=== PATIENT | male | born 1945 | race Caucasian/White ===

== ENCOUNTER 2022-09-25 15:46 | Emergency (ER) | payer MEDICARE, MEDICAID, SELFPAY ==
[2022-09-25 15:47] VITALS: BP 165/76; PULSE 87; RESP 18; TEMP 36.7; O2SAT 92; BMI 32.8
--- NOTE | 2022-09-25 17:32 | EDS_ITS ---
HPI History of Present Illness Chief Complaint: Complaint Informant: other Narrative Narrative: Patient here with long-term staff members. History of deaf and being mute. Information from staff member. Sent in here from PCP blood work 3 days ago and urine test 2 days ago. States culture returned strep. Reported worsening kidney issues. Patient had blood work urine test due to changes in behavior. He is back at the long-term over the past few months. From paperwork history of hypertension, hyperlipidemia, deaf and mute, paroxysmal A-fib back in 1992. They reported me that their doctor told them the blood work results should be in the medical system for evaluation. Patient was not complaining of any urinary symptoms has been no vomiting or diarrhea. Reported that he was to come here for IV antibiotics. PFSH PFSH Home Medications cefuroxime axetil 500 mg tablet 500 mg PO BID #14 tabs 09/25/22 [Rx Last Taken Unknown] Allergy/AdvReac Type Severity Reaction Status Date / Time No Known Allergies Allergy Verified 09/25/22 15:52 Social History Smoking Status: Unknown if ever smoked ROS ROS ED Review of Systems ROS Unobtainable: due to mental condition EXAM Physical Exam Const Vital Signs: 09/25/22 15:47 09/25/22 18:17 09/25/22 20:08 Temperature 98.0 F Temperature Source Temporal Pulse Rate 87 Respiratory Rate 18 Blood Pressure 165/76 H Blood Pressure Mean 105 Pulse Ox 92 98 99 Oxygen Delivery Method Room Air Room Air Room Air 09/25/22 20:27 Temperature Temperature Source Pulse Rate 74 Respiratory Rate 14 Blood Pressure 114/85 H Blood Pressure Mean Pulse Ox 99 Oxygen Delivery Method Positive well nourished and well developed Constitutional Narrative: Sitting up in bed nontoxic moving all extremities General Appearance ED: well developed and NAD HEENT Reports moist mucous membranes normocephalic and atraumatic Eyes PERRL, EOMs intact bilaterally and conjunctivae normal General Eye ED: Yes normal appearance of both eyes Neck no lymphadenopathy and supple General: Negative for tenderness Chest Wall Chest: Negative for tenderness Resp normal respiratory effort and normal air movement Effort and Inspection: symmetric chest movement; Negative for respiratory distress Cardio regular rate, regular rhythm and no murmurs Peripheral Pulses: pulses 2+ throughout GI normal to inspection, nondistended, normoactive bowel sounds and non-tender GI Narrative: Negative Szymanski's McBurney's 10. Palpation: Negative for guarding or rebound tenderness present Back/Spine no CVA tenderness and no thoracic nor lumbar tenderness Extremity normal to inspection General Extremety ED: Negative for edema or tenderness General Extremity: Negative for edema Neuro Sensorium / Orientation: awake Skin no rashes or lesions noted and no wounds MDM MDM MDM Narrative Medical decision making narrative: Interventions / MDM: Differential diagnosis: UTI, kidney injury Diagnosis considered but do not suspect: Kidney stones, pyelonephritis however no discomfort, nontoxic My EKG interpretation: N/A Imaging independently reviewed and interpreted by myself: N/A External documents reviewed: Clinisync evaluation notes urine culture Streptococcus anginosus with no success to be testing done on report. Creatinine was 1.44 there is no old other labs in the system for comparison. Test considered but not ordered:N/A ED course: Patient nontoxic. Reported positive urine culture from 2 days ago. I did recheck labs White count 10.8 creatinine 1.46. Urine did note signs of infection culture. Obtaining records noted it was strep anginosus with no sensitivities that were performed. He is given fluids, discussed no order labs for comparison for his previous creatinine. He is covered Rocephin IV. Clinically stable for discharge home. Discussed with staff members. They like prescription sent to pharmacy here to milk pickup driver tomorrow. Cefuroxime was sent to the pharmacy twice a day for 7 days. They will follow-up with PCP recheck kidney numbers. Return precaution discussed. All questions were answered. Re-evaluation: stable Disposition discussed with patient/family/significant other: Staff members Case discussed with consulting clinician: N/A Lab Data Attestation: I reviewed the patient's lab results. Labs: Laboratory Results - last 24 hr 09/25/22 09/25/22 09/25/22 18:14 18:14 18:14 WBC Cancelled 10.8 Corrected WBC Cancelled RBC Cancelled 4.47 L Hgb Cancelled 13.6 Hct Cancelled 39.9 L MCV Cancelled 89.3 MCH Cancelled 30.4 MCHC Cancelled 34.1 RDW Std Deviation Cancelled 41.0 RDW Coeff of Leydi Cancelled 12.4 Plt Count Cancelled 226 MPV Cancelled 11.2 Immature Gran % (Auto) Cancelled 0.300 Neut % (Auto) Cancelled 74.2 H Lymph % (Auto) Cancelled 12.4 L [place] % (Auto) Cancelled 12.1 H Eos % (Auto) Cancelled 0.7 Baso % (Auto) Cancelled 0.3 Absolute Neuts (auto) Cancelled 8.0 H Absolute Lymphs (auto) Cancelled 1.34 Total Counted Cancelled Neutrophils % (Manual) Cancelled Band Neutrophils % Cancelled Lymphocytes % (Manual) Cancelled Monocytes % (Manual) Cancelled Eosinophils % (Manual) Cancelled Basophils % (Manual) Cancelled Metamyelocytes % Cancelled Myelocytes % Cancelled Promyelocytes % Cancelled Blast Cells % Cancelled Plasma Cell % (Manual) Cancelled Other Cells % Cancelled Nucleated RBC % Cancelled 0 Nucleated RBCs/100 WBC Cancelled Differential Comment Cancelled Diff Path Review Cancelled Hypersegmented Neuts Cancelled Atypical Lymphocytes Cancelled Reactive Lymphocytes Cancelled Smudge Cells Cancelled Toxic Granulation Cancelled Toxic Vacuolation Cancelled Dohle Bodies Cancelled Kwame Rods Cancelled Platelet Estimate Cancelled Plt Morphology Comment Cancelled RBC Morphology Cancelled Polychromasia Cancelled Hypochromasia Cancelled Poikilocytosis Cancelled Basophilic Stippling Cancelled Anisocytosis Cancelled Microcytosis Cancelled Macrocytosis Cancelled Spherocytes Cancelled Sickle Cells Cancelled Target Cells Cancelled Tear Drop Cells Cancelled Ovalocytes Cancelled Stomatocytes Cancelled [place] Bodies Cancelled Capri Cells Cancelled Bite Cells Cancelled Crenated Cell Cancelled Acanthocytes (Spur) Cancelled Rouleaux Cancelled Schistocytes Cancelled Sodium 134 L Potassium 4.3 Chloride 100 Carbon Dioxide 24.0 Anion Gap 10 BUN 38 H Creatinine 1.46 H Estim Creat Clear Calc 34.10 Est GFR (MDRD) Af Amer 60 Est GFR (MDRD) Non-Af 50 L BUN/Creatinine Ratio 26.0 H Glucose 177 H Calcium 9.7 Urine Color Urine Clarity Urine pH Ur Specific [place] Urine Protein Urine Glucose (UA) Urine Ketones Urine Occult Blood Urine Nitrite Urine Bilirubin Urine Urobilinogen Ur Leukocyte Esterase Urine RBC Urine WBC Ur Squamous Epith Cells Urine Bacteria Urine Mucus 09/25/22 18:14 WBC Corrected WBC RBC Hgb Hct MCV MCH MCHC RDW Std Deviation RDW Coeff of Leydi Plt Count MPV Immature Gran % (Auto) Neut % (Auto) Lymph % (Auto) [place] % (Auto) Eos % (Auto) Baso % (Auto) Absolute Neuts (auto) Absolute Lymphs (auto) Total Counted Neutrophils % (Manual) Band Neutrophils % Lymphocytes % (Manual) Monocytes % (Manual) Eosinophils % (Manual) Basophils % (Manual) Metamyelocytes % Myelocytes % Promyelocytes % Blast Cells % Plasma Cell % (Manual) Other Cells % Nucleated RBC % Nucleated RBCs/100 WBC Differential Comment Diff Path Review Hypersegmented Neuts Atypical Lymphocytes Reactive Lymphocytes Smudge Cells Toxic Granulation Toxic Vacuolation Dohle Bodies Kwame Rods Platelet Estimate Plt Morphology Comment RBC Morphology Polychromasia Hypochromasia Poikilocytosis Basophilic Stippling Anisocytosis Microcytosis Macrocytosis Spherocytes Sickle Cells Target Cells Tear Drop Cells Ovalocytes Stomatocytes [place] Bodies Capri Cells Bite Cells Crenated Cell Acanthocytes (Spur) Rouleaux Schistocytes Sodium Potassium Chloride Carbon Dioxide Anion Gap BUN Creatinine Estim Creat Clear Calc Est GFR (MDRD) Af Amer Est GFR (MDRD) Non-Af BUN/Creatinine Ratio Glucose Calcium Urine Color Yellow Urine Clarity Sl. Cloudy Urine pH 6.0 Ur Specific [place] 1.015 Urine Protein 15 H Urine Glucose (UA) Normal Urine Ketones Negative Urine Occult Blood Negative Urine Nitrite Negative Urine Bilirubin Negative Urine Urobilinogen Normal Ur Leukocyte Esterase 100 H Urine RBC 0 SEEN Urine WBC 5-10 SEEN Ur Squamous Epith Cells 0-5 SEEN Urine Bacteria 3+ Urine Mucus 0 SEEN Discharge Plan Triage Chief Complaint: Complaint ED Provider: Ezekiel Mehta Dx/Rx/DC Orders Clinical Impression: Acute UTI, Acute renal insufficiency Instructions: Urinary Tract Infections in Men, ED Renal Insufficiency Prescriptions: New cefuroxime axetil 500 mg tablet 500 mg PO BID Qty: 14 0RF Primary Care Provider: Brit Renee Referrals: Brit Renee MD [Primary Care Provider] - 3-5 Days Activity Restrictions/Additional Instructions: Creatinine 1.46 on recheck stable from your outpatient lab. Urine with infection status post Rocephin IV. Take antibiotic as prescribed. Continue oral fluids at home. Recheck labs by your doctor. Return if any worsening symptoms. Pharmacy is open from 9 AM to 2 PM tomorrow through [facility] to milk pickup driver. Disposition Disposition: Home, Self Care Discharge Date/Time: 09/25/22 20:27
[2022-09-25 18:17] VITALS: O2SAT 98
[2022-09-25] MEDS: 0.9% Normal Saline 1,000 ML 250 ML IV (18:21)
[2022-09-25 18:26] LABS: Mucous, Urine 0 SEEN /hpf (<or=2+); Red Blood Cells-Urine 0 SEEN /hpf (0-5)
[2022-09-25 18:31] LABS: Color, Urine Yellow (Yellow); Glucose, Dipstick Normal (Normal); Ketone-Dipstick Negative (Negative); Leukocyte Esterase-Dipstick 100 /ul (Negative); Nitrite-Dipstick Negative (Negative); Occult Blood-Urine Negative /ul (Negative); Protein-Dipstick 15 mg/dl (Negative); Specific Gravity, Urine 1.015 (1.002-1.030); Urine Bilirubin Dipstick Negative (Negative); Urine Clarity Sl. Cloudy (Clear); Urine Urobilinogen Normal (Normal)
[2022-09-25 18:36] LABS: Absolute Lymphocyte Count 1.34 X10^3/uL (0.83-4.51); Basophil# 0.03 X10^3/uL; Basophil% 0.3 % (0-1); Eosinophil# 0.08 X10^3/uL; Eosinophils% 0.7 % (0-5); Hematocrit 39.9 % (40-54); Hemoglobin 13.6 g/dL (13.0-16.5); Lymphocyte # 1.34 X10^3/ul (0.83-4.51); Lymphocyte % 12.4 % (19-41); Mean Corp Hgb Conc 34.1 g/dL (32-36); Mean Corpuscular Hgb 30.4 pg (27.0-32.0); Mean Corpuscular Volume 89.3 fL (80-94); Mean Platelet Vol. 11.2 fl (6.2-12.0); Monocyte# 1.31 X10^3/uL; Monocyte% 12.1 % (0-10); NRBC Flagged by Analyzer 0 % (0-5); Neutrophil # 8.04 X10^3/uL (2.7-7.7); Neutrophil % 74.2 % (47-70); Platelet Count 226 K/mm3 (150-450); RBC Distribution Width CV 12.4 % (11.6-14.6); Red Blood Count 4.47 M/mm3 (4.6-6.2); White Blood Count 10.8 K/mm3 (4.4-11.0)
[2022-09-25 18:38] LABS: Bacteria 3+ /hpf (None Seen); Squamous Epithelial Cells - UA 0-5 SEEN /hpf (0-5); White Blood Cells 5-10 SEEN /hpf (0-5)
[2022-09-25 19:00] LABS: Anion Gap 10 (5-15); BUN 38 mg/dL (7-18); Calcium,Total 9.7 mg/dL (8.5-10.1); Chloride 100 mmol/L (98-107); Creatinine, Serum 1.46 mg/dL (0.70-1.30); EST Glomerular Filtration Rate 50 mL/min (>60); Est Glom Filt Rate - Afr Amer 60 mL/min (>60); Glucose 177 mg/dL (74-106); Potassium 4.3 mmol/L (3.5-5.1); Sodium Level 134 mmol/L (136-145)
[2022-09-25] MEDS: Ceftriaxone 1 GM/50 ML BAG IV (19:25)
[2022-09-25 20:08] VITALS: O2SAT 99
[2022-09-25 20:27] VITALS: BP 114/85; PULSE 74; RESP 14; O2SAT 99
== END 2022-09-25 20:27 | disposition home or self-care (01) ==
PROVIDERS: Emergency Provider Emergency Medicine; PCP Internal Medicine; Visit Provider Emergency Medicine
DX: N39.0 Urinary tract infection, site not specified (principal); N28.9 Disorder of kidney and ureter, unspecified
CPT/HCPCS: 80048; 81001; 85025; 87086; 87088; 96365; 96366; 99284; J7030; A4216

== ENCOUNTER 2022-10-06 15:48 | Emergency (ER) | payer MEDICARE, MEDICAID, SELFPAY ==
[2022-10-06 15:49] VITALS: BP 158/85; PULSE 102; RESP 18; TEMP 36.6; O2SAT 93; BMI 28.7
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
== END 2022-10-06 17:10 | disposition home or self-care (01) ==
PROVIDERS: Emergency Provider Emergency Medicine; PCP Internal Medicine; Visit Provider Emergency Medicine
DX: F91.9 Conduct disorder, unspecified (principal); I10 Essential (primary) hypertension; E78.00 Pure hypercholesterolemia, unspecified; R41.89 Other symptoms and signs involving cognitive functions and awareness; H91.3 Deaf nonspeaking, not elsewhere classified; Z79.899 Other long term (current) drug therapy
CPT/HCPCS: 99282

== ENCOUNTER 2023-05-06 20:08 | Inpatient (IN) | payer MEDICARE, MEDICAID, SELFPAY ==
[2023-05-06] VITALS (13 sets, daily range): BP systolic 80–104; BP diastolic 53–68; PULSE 99–140; RESP 14–23; TEMP 36.3–36.6; O2SAT 90–98; BMI 27.1
--- NOTE | 2023-05-06 20:37 | EDS_ITS ---
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 His caregiver is unsure if he has had a fever at home because she was at work all day. Recently treated for UTI with Macrobid. 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 PFSH PFS Medical History (Updated 05/06/23 @ 21:06 by Madeleine Rodriguez) UTI (urinary tract infection) Home Medications amlodipine 10 mg tablet 10 mg PO DAILY 10/06/22 [History Last Taken Unknown] atorvastatin 20 mg tablet 20 mg PO DAILY 10/06/22 [History Last Taken Unknown] hydrochlorothiazide 12.5 mg capsule 12.5 mg PO DAILY 10/06/22 [History Last Taken Unknown] lisinopril 20 mg tablet 20 mg PO BID 10/06/22 [History Last Taken Unknown] atenolol 25 mg tablet 25 mg PO Q24H 05/06/23 [History Last Taken Unknown] cholecalciferol (vitamin D3) 50 mcg (2,000 unit) capsule (Vitamin D3) 2,000 unit PO DAILY 05/06/23 [History Last Taken Unknown] Allergy/AdvReac Type Severity Reaction Status Date / Time No Known Allergies Allergy Verified 05/06/23 20:26 Social History housing: other details: retirement Smoking Status: Unknown if ever smoked ROS ROS ED Review of Systems ROS Unobtainable: due to mental condition and due to mental status Gastrointestinal Gastrointestinal: Reports nausea and vomiting EXAM Physical Exam Const Vital Signs: 05/06/23 20:09 05/06/23 20:13 05/06/23 20:27 Temperature 97.9 F Temperature Source Temporal Pulse Rate 128 H Respiratory Rate 17 Blood Pressure 104/66 92/53 L Blood Pressure Mean 78 66 Pulse Ox 98 93 Oxygen Delivery Method Room Air Nasal Cannula Oxygen Flow Rate (L/min) 2 05/06/23 20:15 05/06/23 21:00 05/06/23 20:30 Temperature 97.9 F 97.8 F 97.9 F Temperature Source Temporal Temporal Temporal Pulse Rate 124 H 127 H 140 H Respiratory Rate 16 14 16 Blood Pressure 92/53 L 87/68 L 86/60 L Blood Pressure Mean 66 74 68 Pulse Ox 92 92 92 Oxygen Delivery Method Nasal Cannula Nasal Cannula Nasal Cannula Oxygen Flow Rate (L/min) 2 2 2 05/06/23 21:51 05/06/23 21:04 05/06/23 22:01 Temperature 97.8 F Temperature Source Temporal Pulse Rate 115 H 124 H 126 H Respiratory Rate 23 H 18 18 Blood Pressure 86/54 L 87/66 L Blood Pressure Mean 64 73 Pulse Ox 91 90 94 Oxygen Delivery Method Nasal Cannula Nasal Cannula Oxygen Flow Rate (L/min) 2 2 05/06/23 21:15 05/06/23 21:30 05/06/23 21:45 Temperature Temperature Source Pulse Rate 112 H 121 H 114 H Respiratory Rate 18 14 18 Blood Pressure 82/67 L 80/56 L 84/58 L Blood Pressure Mean 72 64 66 Pulse Ox 94 90 98 Oxygen Delivery Method Nasal Cannula Nasal Cannula Nasal Cannula Oxygen Flow Rate (L/min) 2 2 2 05/06/23 23:00 05/06/23 23:00 05/07/23 00:00 Temperature 97.4 F L 97.5 F L Temperature Source Temporal Temporal Pulse Rate 99 99 100 Respiratory Rate 14 14 17 Blood Pressure 90/58 L 90/58 L 90/56 L Blood Pressure Mean 68 68 67 Pulse Ox 94 94 90 Oxygen Delivery Method Nasal Cannula Nasal Cannula Nasal Cannula Oxygen Flow Rate (L/min) 2 2 2 05/07/23 00:50 05/07/23 00:52 Temperature 98.7 F 98.7 F Temperature Source Temporal Temporal Pulse Rate 93 92 Respiratory Rate 18 18 Blood Pressure 81/45 L 81/45 L Blood Pressure Mean 57 57 Pulse Ox 93 93 Oxygen Delivery Method Nasal Cannula Nasal Cannula Oxygen Flow Rate (L/min) 2 2 Positive well nourished HEENT Reports TM's clear and moist mucous membranes normocephalic Tympanic Membrane ED: Yes TM's clear Eyes PERRL and EOMs intact bilaterally Resp normal respiratory effort and clear to auscultation bilaterally Cardio regular rhythm Rate: tachycardic Neuro CN's II-XII intact bilaterally and moves all extremities Sensorium / Orientation: alert Motor Exam: general weakness Psych Psych Narrative: At baseline Skin no wounds MDM MDM MDM Narrative Medical decision making narrative: Patient presenting with nausea, vomiting, diarrhea which is occurred most of the day. Patient's caregiver currently with him was not with him today. She is unsure if he had a fever. She is unsure if he had his blood pressure medicines today. He is on amlodipine 10 mg p.o. daily, hydrochlorothiazide 12.5 mg p.o. daily, lisinopril 20 mg p.o. daily. Patient given 2 L of normal saline and 4 mg Zofran. He states this has no to abdominal exam and is not apparently tender. Sepsis work-up was obtained due to patient being tachycardic and slightly hypotensive at 92/53. Lungs clear to auscultation. Patient afebrile. Patient 98% on room air. Given patient's recent UTI differential includes UTI, pyelonephritis, pneumonia, COVID, influenza, dehydration, electrolyte normalities, anemia, A-fib. EKG will be obtained to assess heart rhythm. CBC shows leukocytosis of 19.9. Hemoglobin stable at 11.6. Platelets 430. PT/INR within normal limits. Lactic acid returned at 6.2. Chest x-ray my interpretation shows left lower lobe pneumonia. Patient slightly hypoxic requiring O2. Given this started on Rocephin and azithromycin. He was given 30 cc/kg of normal saline. Urinalysis was negative for infection. EKG on my interpretation flutter with variable AV block at 132 bpm. No reported history of this patient anticoagulated. Patient initially medicated with Zofran and started to have emesis again so he is given additional IV fluids as well as Phenergan and this seemed to control it. His blood pressures were anywhere from the 60s systolic to 100 systolic and have gone up and down periodically. The patient is alert however he cannot communicate. He does motion that he wants to go home. I spoke with his nurse aide who knows none of his medical history and does not know his CODE STATUS. Since the patient is a poor informant with a high leukocytosis I did CT the abdomen pelvis as well as the chest to make sure there was not something acutely abnormal and it does show that there is a chronic outlet obstruction with a distended bladder and hydroureteronephrosis. Caldwell catheter was placed and the patient emptied about 1500 cc out of his bladder. Discussed with Sumit Ruiz who is the court-appointed automatic dry starch operator for the patient and in charge of his care. She states that he did not have a very good life and recommended keeping him comfortable but no aggressive measures such as intubation, CPR, central lines. She was okay with IV fluids and antibiotics. Appropriate paperwork is filled out for DNR. Patient discussed with hospitalist for admission. Impression: 1. Left lower lobe pneumonia 2. Septic shock 3. Hypotension 4. Urinary outlet obstruction 5. Acute kidney injury 6. Nausea/vomiting Lab Data Attestation: I reviewed the patient's lab results. Labs: Laboratory Results - last 24 hr 05/06/23 05/06/23 20:50 21:00 WBC 19.9 H RBC 4.08 L Hgb 11.6 L Hct 36.5 L MCV 89.5 MCH 28.4 MCHC 31.8 L RDW Std Deviation 43.1 RDW Coeff of Ledy[place] 13.2 Plt Count 430 MPV 11.7 Immature Gran % (Auto) 0.600 Neut % (Auto) 81.8 H Lymph % (Auto) 8.1 L Webb % (Auto) 9.3 Eos % (Auto) 0.1 Baso % (Auto) 0.1 Absolute Neuts (auto) 16.3 H Absolute Lymphs (auto) 1.62 Nucleated RBC % 0 Differential Comment SEE COMMENT Diff Path Review May foll Platelet Estimate SLT INC RBC Morphology N CHROM Anisocytosis RARE Macrocytosis RARE PT 16.3 H INR 1.3 APTT 28.5 Sodium 137 Potassium 4.1 Chloride 101 Carbon Dioxide 21.0 Anion Gap 15 BUN 64 H Creatinine 3.92 H Estim Creat Clear Calc 15.03 Est GFR (MDRD) Af Amer 19 L Est GFR (MDRD) Non-Af 16 L BUN/Creatinine Ratio 16.3 Glucose 283 H Lactic Acid 6.2 H* Calcium 9.8 Total Bilirubin 0.70 AST 6 L ALT 16 Alkaline Phosphatase 99 Troponin I High Sens 7 Total Protein 8.7 H Albumin 3.9 Globulin 4.8 H Albumin/Globulin Ratio 0.8 L Urine Color Yellow Urine Clarity Sl. Cloudy Urine pH 8.0 Ur Specific [place] 1.010 Urine Protein 100 H Urine Glucose (UA) Normal Urine Ketones Negative Urine Occult Blood 50 H Urine Nitrite Negative Urine Bilirubin Negative Urine Urobilinogen Normal Ur Leukocyte Esterase 500 H Urine RBC 10-25 SEEN Urine WBC 0 SEEN Ur Squamous Epith Cells 0 SEEN Triple Phos Crystals 2+ Urine Bacteria 1+ Urine Mucus 0 SEEN Radiography Diagnostic Testing: Clinical Impression(s) from Imaging Studies Chest X-Ray 05/06/23 20:40 IMPRESSION: Findings which may be consistent with viral pneumonia most pronounced in the left lower lobe. Clinical correlation recommended. Electronically Signed: Daniel Mera MD at 21:07 EDT , Chest/Abdomen/Pelvis CT 05/06/23 21:46 IMPRESSION: Diffuse nonspecific bilateral perihilar interstitial thickening more pronounced in the lower lobes and ASHD.. Mild subsegmental atelectasis in association with elevated right hemidiaphragm Mild bilateral renal pelvocaliectasis and hydroureter association with markedly distended bladder and mild enlargement of prostate possibly due to chronic outlet obstruction.. Cannot definitively exclude possibility of bladder mass. Clinical correlation is recommended Electronically Signed: Daniel Mera MD at 23:03 EDT , Critical Care Time Critical Care Time: Yes Critical care time (excluding procedures): 30-74 minutes (35), Discussing w/Patient &/or Family/Diver'S Tender, Discussing w/Consultants, Arranging Admission or Transfer and Performing Direct Patient Care at Bedside Discharge Plan Triage Chief Complaint: Nausea/Vomiting/Diarrhea ED Provider: William Mcelroy Dx/Rx/DC Orders Prescriptions: No Action atorvastatin 20 mg tablet 20 mg PO DAILY lisinopril 20 mg tablet 20 mg PO BID amlodipine 10 mg tablet 10 mg PO DAILY hydrochlorothiazide 12.5 mg capsule 12.5 mg PO DAILY atenolol 25 mg tablet 25 mg PO Q24H cholecalciferol (vitamin D3) [Vitamin D3] 50 mcg (2,000 unit) capsule 2,000 unit PO DAILY Primary Care Provider: Brit Renee Referrals: Brit Renee MD [Primary Care Provider] -
--- NOTE | 2023-05-06 20:40 | RAD_ITS ---
STUDY: X-RAY CHEST REASON FOR EXAM: Male, 77 years old. weakness TECHNIQUE: AP portable COMPARISON: None. FINDINGS: Bilateral perihilar reticulonodular interstitial infiltration more severe in the lower lobes worse on the left. There is no demonstrated pleural abnormality. Normal size heart. Normal mediastinum and marcela. Normal visualized pulmonary arteries. Mildly calcified aortic arch and descending thoracic aorta. Normal visualized thoracic spine. Normal visualized ribs, clavicles, and shoulders. There is no demonstrated abnormality of the visualized soft tissue structures of the upper abdomen. RAD/Chest 1 View (Portable) IMPRESSION: Findings which may be consistent with viral pneumonia most pronounced in the left lower lobe. Clinical correlation recommended. Electronically Signed: Daniel Mera MD at 21:07 EDT ,
[2023-05-06] MEDS: Ondansetron 4 MG/2 ML Vial IV (21:05)
[2023-05-06] MEDS: 0.9% Normal Saline (1000mL) 1,000 ML 999 ML IV ×4 (21:05→23:31)
[2023-05-06 21:10] LABS: Mucous, Urine 0 SEEN /hpf (<or=2+); Squamous Epithelial Cells - UA 0 SEEN /hpf (0-5)
[2023-05-06 21:13] LABS: Absolute Lymphocyte Count 1.62 X10^3/uL (0.83-4.51); Absolute Neutrophil Count 16.3 X10^3/uL (2.0-7.7); Basophil# 0.02 X10^3/uL; Basophil% 0.1 % (0-1); Eosinophil# 0.01 X10^3/uL; Eosinophils% 0.1 % (0-5); Hematocrit 36.5 % (40-54); Hemoglobin 11.6 g/dL (13.0-16.5); Lymphocyte # 1.62 X10^3/ul (0.83-4.51); Lymphocyte % 8.1 % (19-41); Mean Corp Hgb Conc 31.8 g/dL (32-36); Mean Corpuscular Hgb 28.4 pg (27.0-32.0); Mean Corpuscular Volume 89.5 fL (80-94); Mean Platelet Vol. 11.7 fl (6.2-12.0); Monocyte# 1.85 X10^3/uL; Monocyte% 9.3 % (0-10); NRBC Flagged by Analyzer 0 % (0-5); Neutrophil # 16.32 X10^3/uL (2.7-7.7); Neutrophil % 81.8 % (47-70); POSITIVE DIFFERENTIAL YES; Platelet Count 430 K/mm3 (150-450); RBC Distribution Width CV 13.2 % (11.6-14.6); RBC Distribution Width SD 43.1 fl (35.1-43.9); Red Blood Count 4.08 M/mm3 (4.6-6.2); White Blood Count 19.9 K/mm3 (4.4-11.0)
[2023-05-06 21:33] LABS: ALB/GLOB Ratio 0.8 RATIO (0.9-2.4); AST(SGOT) 6 U/L (15-37); Alanine Aminotransfer ALT/SGPT 16 U/L (16-61); Albumin, Serum 3.9 g/dL (3.2-5.0); Alkaline Phosphatase 99 U/L (45-117); Anion Gap 15 (5-15); BUN 64 mg/dL (7-18); BUN/Creat Ratio 16.3 RATIO (10-20); Calcium,Total 9.8 mg/dL (8.5-10.1); Chloride 101 mmol/L (98-107); Creatinine, Serum 3.92 mg/dL (0.70-1.30); Differential Indicated SCAN CRITERIA MET; EST Glomerular Filtration Rate 16 mL/min (>60); Est Glom Filt Rate - Afr Amer 19 mL/min (>60); Estimated Creatinine Clearance 15.03 ml/min; Globulin 4.8 g/dL (2.2-4.2); Glucose 283 mg/dL (74-106); Potassium 4.1 mmol/L (3.5-5.1); Protein, Total 8.7 g/dL (6.4-8.2); Sodium Level 137 mmol/L (136-145); Troponin-I HS 7 pg/mL (3.0-78.0)
[2023-05-06 21:37] LABS: International Normalized Ratio 1.3; Partial Thromboplast Time 28.5 Seconds (24.1-36.2); Prothrombin Time (Protime)PT. 16.3 SECONDS (11.7-14.9)
[2023-05-06 21:40] LABS: Color, Urine Yellow (Yellow); Glucose, Dipstick Normal (Normal); Ketone-Dipstick Negative (Negative); Leukocyte Esterase-Dipstick 500 /ul (Negative); Nitrite-Dipstick Negative (Negative); Occult Blood-Urine 50 /ul (Negative); Protein-Dipstick 100 mg/dl (Negative); Urine Bilirubin Dipstick Negative (Negative); Urine Clarity Sl. Cloudy (Clear); Urine Urobilinogen Normal (Normal)
[2023-05-06 21:46] LABS: Lactic Acid 6.2 mmol/L (0.4-1.9); Platelet Estimate SLT INC (ADEQ); Red Cell Morphology N CHROM NORMAL (NORM C&C)
--- NOTE | 2023-05-06 21:46 | CT_ITS ---
STUDY: CT CHEST, ABDOMEN T PELVIS WITHOUT CONTRAST REASON FOR EXAM: Male, 77 years old. pain RADIATION DOSAGE (If Supplied By Facility): CTDIvol = ( 19.83 ) mGy, DLP = ( 1892.97 ) mGycm TECHNIQUE: Transaxial imaging was performed without the administration of intravenous contrast material. Individualized dose optimization techniques were used for this CT. COMPARISON: No relevant priors. FINDINGS: CHEST Nonspecific diffuse interstitial thickening more pronounced in the lower lobes.. Mild subsegmental atelectasis in the right lower lobe in association with elevated right hemidiaphragm There is no demonstrated pleural abnormality. Heart is enlarged and there is multivessel coronary artery calcification. There is a small pericardial cyst in the right cardiophrenic angle Normal mediastinum. Normal hilar regions. Normal unenhanced pulmonary arteries. Atherosclerotic changes of the aorta without evidence for aneurysm Dorsal spine demonstrates degenerative changes ABDOMEN Normal liver. Normal gallbladder and extrahepatic biliary system. Normal spleen. Normal pancreas. Normal bilateral adrenal glands. Mild bilateral renal pelvocaliectasis and hydroureter and diffusely distended bladder in association with mild enlargement of prostate possibly due to chronic outlet obstruction Normal visualized stomach. Normal small intestine. Normal colon. No evidence for acute appendicitis Atherosclerotic changes of aorta without evidence for aneurysm. Normal inferior vena cava. Tiny subcentimeter retroperitoneal nodes likely benign. Normal abdominal wall. Normal osseous structures. PELVIS Nonspecific diffuse bladder distention Normal visualized small intestine. Normal visualized colon. There is no pelvic fluid. There is no pelvic lymphadenopathy or mass lesion. Normal visualized pelvic arteries. Normal abdominal wall. Lumbar spine demonstrates mild spondylosis. CT/CT Chest, Abd, Pelvis WO Cont IMPRESSION: Diffuse nonspecific bilateral perihilar interstitial thickening more pronounced in the lower lobes and ASHD.. Mild subsegmental atelectasis in association with elevated right hemidiaphragm Mild bilateral renal pelvocaliectasis and hydroureter association with markedly distended bladder and mild enlargement of prostate possibly due to chronic outlet obstruction.. Cannot definitively exclude possibility of bladder mass. Clinical correlation is recommended Electronically Signed: Daniel Mera MD at 23:03 EDT ,
[2023-05-06 21:53] LABS: Bacteria 1+ /hpf (None Seen); Red Blood Cells-Urine 10-25 SEEN /hpf (0-5); Triple Phosphate Crystals Ur 2+ /hpf (<or=1+); White Blood Cells 0 SEEN /hpf (0-5)
[2023-05-06 21:53] LABS: Anisocytosis RARE
[2023-05-06 21:54] LABS: Macrocytosis RARE
[2023-05-06] MEDS: Azithromycin 500 MG in Dextrose 5%-Water (250mL Bag) 250 ML 250 MG IV (22:37)
[2023-05-06] MEDS: Ceftriaxone 1 GM/50 ML BAG IV (22:38)
[2023-05-06] MEDS: proMETHazine 25 MG/ML Syringe 12.5 MG IM (23:31)
[2023-05-07] VITALS (19 sets, daily range): BP systolic 77–104; BP diastolic 45–67; PULSE 92–124; RESP 14–19; TEMP 36.2–37.2; O2SAT 90–97; BMI 26.9
--- NOTE | 2023-05-07 00:22 | ED.RN ---
THIS NURSE SPOKE TO JOHANA RAMIREZ, LEGAL POA. SHE STATES ED IS TO BE A DNRCC WITH NO AGGRESSIVE TREATMENT.
--- NOTE | 2023-05-07 00:53 | PCM.HP.STD ---
HPI - General General Date of Service: 05/07/23 Chief Complaint: nausea, vomiting and diarrhea HPI Narrative ED VAQZUEZ, is a 77 M with a significant history of deaf and dumb; and cognitive defect will lives at a Longterm who was brought to the emergency department with nausea, vomiting and diarrhea. His symptoms started the same day of presentation. Per snf aide was at bedside patient went to the bathroom and stated for about 1 hour. When staff went to the bathroom, patient had stools on the toilet and he was covered with vomitus. History was obtained from emergency department doctor and snf age as patient's is nonverbal and deaf. At the emergency department patient was found to have severely low blood pressure. He received normal saline bolus per sepsis protocol. ED physician discussed case with patient's POA who recommended against aggressive treatment but reported patient be made comfortable. ED doctor reported that CT scan showed bladder left obstruction and a Caldwell catheter placed was productive 1500 mL of urine and for which the Caldwell catheter was clamped. [facility] Medical History (Updated 05/07/23 @ 01:[address] Carlton Pelayo MD) UTI (urinary tract infection) Home Medications amlodipine 10 mg tablet 10 mg PO DAILY 10/06/22 [History Last Taken Unknown] atorvastatin 20 mg tablet 20 mg PO DAILY 10/06/22 [History Last Taken Unknown] hydrochlorothiazide 12.5 mg capsule 12.5 mg PO DAILY 10/06/22 [History Last Taken Unknown] lisinopril 20 mg tablet 20 mg PO BID 10/06/22 [History Last Taken Unknown] atenolol 25 mg tablet 25 mg PO Q24H 05/06/23 [History Last Taken Unknown] cholecalciferol (vitamin D3) 50 mcg (2,000 unit) capsule (Vitamin D3) 2,000 unit PO DAILY 05/06/23 [History Last Taken Unknown] Allergy/AdvReac Type Severity Reaction Status Date / Time No Known Allergies Allergy Verified 05/06/23 20:26 Family History unable to obtain unable to obtain Surgical History unable to obtain unable to obtain Social History housing: other details: longterm Smoking Status: Unknown if ever smoked Vital Signs Vital Signs Vital Signs: 05/06/23 20:09 05/06/23 20:13 05/06/23 20:27 Temperature 97.9 F Temperature Source Temporal Pulse Rate 128 H Respiratory Rate 17 Blood Pressure 104/66 92/53 L Blood Pressure Mean 78 66 Pulse Ox 98 93 Oxygen Delivery Method Room Air Nasal Cannula Oxygen Flow Rate (L/min) 2 05/06/23 20:15 05/06/23 21:00 05/06/23 20:30 Temperature 97.9 F 97.8 F 97.9 F Temperature Source Temporal Temporal Temporal Pulse Rate 124 H 127 H 140 H Respiratory Rate 16 14 16 Blood Pressure 92/53 L 87/68 L 86/60 L Blood Pressure Mean 66 74 68 Pulse Ox 92 92 92 Oxygen Delivery Method Nasal Cannula Nasal Cannula Nasal Cannula Oxygen Flow Rate (L/min) 2 2 2 05/06/23 21:51 05/06/23 21:04 05/06/23 22:01 Temperature 97.8 F Temperature Source Temporal Pulse Rate 115 H 124 H 126 H Respiratory Rate 23 H 18 18 Blood Pressure 86/54 L 87/66 L Blood Pressure Mean 64 73 Pulse Ox 91 90 94 Oxygen Delivery Method Nasal Cannula Nasal Cannula Oxygen Flow Rate (L/min) 2 2 05/06/23 21:15 05/06/23 21:30 05/06/23 21:45 Temperature Temperature Source Pulse Rate 112 H 121 H 114 H Respiratory Rate 18 14 18 Blood Pressure 82/67 L 80/56 L 84/58 L Blood Pressure Mean 72 64 66 Pulse Ox 94 90 98 Oxygen Delivery Method Nasal Cannula Nasal Cannula Nasal Cannula Oxygen Flow Rate (L/min) 2 2 2 05/06/23 23:00 05/06/23 23:00 05/07/23 00:00 Temperature 97.4 F L 97.5 F L Temperature Source Temporal Temporal Pulse Rate 99 99 100 Respiratory Rate 14 14 17 Blood Pressure 90/58 L 90/58 L 90/56 L Blood Pressure Mean 68 68 67 Pulse Ox 94 94 90 Oxygen Delivery Method Nasal Cannula Nasal Cannula Nasal Cannula Oxygen Flow Rate (L/min) 2 2 2 05/07/23 00:50 05/07/23 00:52 Temperature 98.7 F 98.7 F Temperature Source Temporal Temporal Pulse Rate 93 92 Respiratory Rate 18 18 Blood Pressure 81/45 L 81/45 L Blood Pressure Mean 57 57 Pulse Ox 93 93 Oxygen Delivery Method Nasal Cannula Nasal Cannula Oxygen Flow Rate (L/min) 2 2 Weight Weight: 81.1 kg Body Mass Index (BMI) 27.1 Physical Exam Narrative Physical exam: General: Well-nourished, well-developed. Head: Normocephalic, atraumatic, no tenderness Eyes: Vision is grossly intact. ENT, no trauma, moist mucous membranes, no rhinorrhea Neck: Nontender, No thyromegaly. CVS: Regular rate and rhythm. S1-S2 present. No murmur, gallop or rub. Respiratory : Rales, chest wall nontender Abdomen: Soft, nontender, nondistended, normal bowel sounds, no masses : Deferred Back: Nontender, no CVA tenderness, Extremities: Nontender full range of motion, no trauma Skin: Normal color, no trauma, abrasions Neuro: Alert,Deaf Psychiatry: Normal mood. Normal affect. Not depressed. Not anxious. Results Lab / Micro Data 05/06/23 20:50 05/06/23 20:50 Labs: Laboratory Results - last 24 hr 05/06/23 20:50: WBC 19.9 H, RBC 4.08 L, Hgb 11.6 L, Hct 36.5 L, MCV 89.5, MCH 28.4, MCHC 31.8 L, RDW Std Deviation 43.1, RDW Coeff of [place] 13.2, Plt Count 430, MPV 11.7, Immature Gran % (Auto) 0.600, Neut % (Auto) 81.8 H, Lymph % (Auto) 8.1 L, [place] % (Auto) 9.3, Eos % (Auto) 0.1, Baso % (Auto) 0.1, Absolute Neuts (auto) 16.3 H, Absolute Lymphs (auto) 1.62, Nucleated RBC % 0, Differential Comment SEE COMMENT, Diff Path Review Nirali carl, Platelet Estimate T INC, RBC Morphology N CHROM, Anisocytosis RARE, Macrocytosis RARE, PT 16.3 H, INR 1.3, APTT 28.5, Sodium 137, Potassium 4.1, Chloride 101, Carbon Dioxide 21.0, Anion Gap 15, BUN 64 H, Creatinine 3.92 H, Estim Creat Clear Calc 15.03, Est GFR (MDRD) Af Amer 19 L, Est GFR (MDRD) Non-Af 16 L, BUN/Creatinine Ratio 16.3, Glucose 283 H, Lactic Acid 6.2 H*, Calcium 9.8, Total Bilirubin 0.70, AST 6 L, ALT 16, Alkaline Phosphatase 99, Troponin I High Sens 7, Total Protein 8.7 H, Albumin 3.9, Globulin 4.8 H, Albumin/Globulin Ratio 0.8 L 05/06/23 21:00: Urine Color Yellow, Urine Clarity Sl. Cloudy, Urine pH 8.0, Ur Specific [place] 1.010, Urine Protein 100 H, Urine Glucose (UA) Normal, Urine Ketones Negative, Urine Occult Blood 50 H, Urine Nitrite Negative, Urine Bilirubin Negative, Urine Urobilinogen Normal, Ur Leukocyte Esterase 500 H, Urine RBC 10-25 SEEN, Urine WBC 0 SEEN, Ur Squamous Epith Cells 0 SEEN, Triple Phos Crystals 2+, Urine Bacteria 1+, Urine Mucus 0 SEEN Micro: Microbiology 05/06/23 20:55 Nasal Secretion SARS-CoV-2 & FLU Antigen (Rapid) - Final Radiology Impression Chest X-Ray 05/06/23 20:40 IMPRESSION: Findings which may be consistent with viral pneumonia most pronounced in the left lower lobe. Clinical correlation recommended. Electronically Signed: Daniel Mera MD at 21:07 EDT Reading Location ID and State: [facility] in [place] / [place] Tel [phone], Service support , Chest/Abdomen/Pelvis CT 05/06/23 21:46 IMPRESSION: Diffuse nonspecific bilateral perihilar interstitial thickening more pronounced in the lower lobes and ASHD.. Mild subsegmental atelectasis in association with elevated right hemidiaphragm Mild bilateral renal pelvocaliectasis and hydroureter association with markedly distended bladder and mild enlargement of prostate possibly due to chronic outlet obstruction.. Cannot definitively exclude possibility of bladder mass. Clinical correlation is recommended Electronically Signed: Daniel Mera MD at 23:03 EDT , Assessment & Plan Assessment/Plan (1) Pneumonia: QUALIFIERS: Pneumonia type: due to unspecified organism Laterality: bilateral Lung location: unspecified part of lung Qualified Code(s): J18.9 - Pneumonia, unspecified organism (2) Gastroenteritis: (3) Septic shock: PLAN: Plan Sepsis secondary to pneumonia/ gastroenteritis The patient presented with sepsis due to (pneumonia and possible gastroenteritis; with acute sepsis related organ dysfunction as evidenced by (lactic acidosis and hypotension ). SIRS criteria: Heart rate more than 90 WBC more than 12,000 or less than 4000 or more than 10% bands (in patient case White count of 19,900 with bandemia of 16,300) organ dysfunction: SBP less than 90 or MAP less than 65 Creatinine more than 2 or urine output less than 0.5 mL/kg/h for 2 hours /Abdomen/pelvis CT with diffuse nonspecific bilateral perihilar interstitial lung disease. Lactic acid of 6.2 on presentation Blood culture X2 ordered at the emergency department, follow. Urine culture ordered AT THE emergency department, follow. SARS-CoV-2 and flu antigen negative. Will check respiratory pathogen panel. Antibiotics: Started on azithromycin and ceftriaxone at the emergency department. Cefepime and azithromycin ordered for inpatient. Linezolid ordered. IV hydration: Received normal saline bolus per septic protocol. Was started on gentle IV hydration. Legionella antigen screen and Strep antigen ordered. Hold home antihypertensive regimen. Acute gastroenteritis Stool leukocyte ordered. Enteric pathogen panel and Giardia stool EIA ordered. Hydration as above. As needed antiemetics in place. Emergency department doctor discussed case with Gerard Ruiz (power of nurse practitioner physicians assistant) on [phone]. Per discussion between ED physician and power of nurse practitioner physicians assistant no heroic measures was recommended. Central line was not recommended. Patient is a DNR CC and will be admitted to progressive care unit on telemetry. History of hypertension Hold home blood pressure medications secondary to hypotension and RAGHAV. Monitor RAGHAV His creatinine on presentation was 3.92. Review of records show that his creatinine (was 09/25/2022 ) was 1.46. Gentle IV hydration as above. Trend BMP. Atrial fibrillation with RVR EKG per my independent interpretation showed A-fib with RVR. Likely secondary to sepsis. Treatment as above. Admit to progressive care unit on telemetry. DVT Prophylaxis: Subcutaneous heparin. Time spent in the patient's overall evaluation,decision-making process, review of diagnostic data, adjustment of management, discussion with other providers, nursing nursing and ancillary staff involved in patient's care documentation, 75 minutes Charges/Coding Visit Charges Inpatient E&M: 82340 Init Hosp L3
[2023-05-07 01:08] LABS: Reflex Lactate? Y
[2023-05-07 02:02] LABS: Lactic Acid 7.4 mmol/L (0.4-1.9)
--- NOTE | 2023-05-07 02:32 | SEPSISATNOTE ---
Sepsis Attestation Sepsis Alert: Yes Sepsis Attestation: Agree w/Sepsis Date exam was performed: 05/07/23 Time exam was performed: 00:53 Possible Source of Sepsis: Pulmonary Sepsis Organ Dysfunction Criteria Present: SBP < 90 mmHg or MAP < 65 mmHg
[2023-05-07] MEDS: 0.9% Normal Saline (1000mL) 1,000 ML 75 ML IV (03:22)
[2023-05-07] MEDS: Linezolid 600 MG 600 MG/300 ML BAG 200 MG IV ×3 (03:31→22:27)
--- NOTE | 2023-05-07 04:32 | NURSING ---
pt had a 16 beat run of vtach--dr ackerman notified via text
[2023-05-07] MEDS: Cefepime HCl 2 GM in 0.9% Normal Saline (100mL MB+) 100 ML IV (06:16)
[2023-05-07 06:25] LABS: Absolute Lymphocyte Count 1.05 X10^3/uL (0.83-4.51); Absolute Neutrophil Count 11.8 X10^3/uL (2.0-7.7); Basophil# 0.01 X10^3/uL; Basophil% 0.1 % (0-1); Hematocrit 32.1 % (40-54); Hemoglobin 10.4 g/dL (13.0-16.5); Lymphocyte # 1.05 X10^3/ul (0.83-4.51); Lymphocyte % 6.9 % (19-41); Mean Corp Hgb Conc 32.4 g/dL (32-36); Mean Corpuscular Hgb 28.9 pg (27.0-32.0); Mean Corpuscular Volume 89.2 fL (80-94); Monocyte# 2.31 X10^3/uL; Monocyte% 15.2 % (0-10); NRBC Flagged by Analyzer 0 % (0-5); Neutrophil # 11.77 X10^3/uL (2.7-7.7); Neutrophil % 77.4 % (47-70); POSITIVE DIFFERENTIAL YES; Platelet Count 258 K/mm3 (150-450); RBC Distribution Width CV 13.5 % (11.6-14.6); RBC Distribution Width SD 44.1 fl (35.1-43.9); White Blood Count 15.2 K/mm3 (4.4-11.0)
[2023-05-07 06:47] LABS: Differential Indicated SCAN CRITERIA MET
[2023-05-07 07:01] LABS: Anion Gap 7 (5-15); BUN 62 mg/dL (7-18); BUN/Creat Ratio 20.1 RATIO (10-20); Calcium,Total 7.9 mg/dL (8.5-10.1); Chloride 112 mmol/L (98-107); Creatinine, Serum 3.09 mg/dL (0.70-1.30); EST Glomerular Filtration Rate 21 mL/min (>60); Est Glom Filt Rate - Afr Amer 25 mL/min (>60); Estimated Creatinine Clearance 19.06 ml/min; Glucose 143 mg/dL (74-106); Potassium 3.8 mmol/L (3.5-5.1); Sodium Level 140 mmol/L (136-145)
[2023-05-07 07:03] LABS: Magnesium 1.9 mg/dL (1.6-2.6)
[2023-05-07 07:14] LABS: Differential Comment SCANNED
[2023-05-07] MEDS: Heparin Injection (Vial) 5,000 UNIT/ML VIAL 5000 UNIT SC ×2 (09:08→22:22)
[2023-05-07] MEDS: Cholecalciferol (VIT D3) 25 MCG TABLET (1,000 UNITS) 50 MCG PO (09:08)
[2023-05-07 12:19] LABS: Pathologist Review Reviewed
[2023-05-07 12:22] LABS: Pathologist Review Reviewed
--- NOTE | 2023-05-07 12:31 | CASEMGMT ---
SHARMILA called patient's caregiver at the correction, Alma. SHARMILA asked Alma if patient needs oxygen at discharge can he return to the correction. Alma said she does not know. Alma said she got a call from Alley Serrano, patient's SSA at [facility] and she said patient is not to return to the correction and needs a long-term setting. SHARMILA called [facility] and left a message for Alley requesting a return call. Bernarda MARCUS
--- NOTE | 2023-05-07 12:53 | CASEMGMT ---
SHARMILA received a return call from Alley Randolph at [facility]. Alley said patient cannot return to the [facility] as they are unable to meet patient's needs. The fdc is not safe for patient. Alley said they were just getting ready to work on finding an alternate placement for patient and he just got a guardian. There has been no discussion of which group home for patient. SHARMILA asked Alley if she could send SW the guardianship paperwork. Plan: Apparently patient is not safe to return to his fdc per Board of . Patient will need placement in a [facility] facility. SHARMILA will work with patient's guardian on placing patient. Bernarda MARCUS
--- NOTE | 2023-05-07 13:55 | CASEMGMT ---
SW placed a copy of patient's legal guardianship papers in patient's chart. Bernarda Camejo PLANT PHYSIOLOGY TEACHER ANGELINE
[2023-05-07] MEDS: Ondansetron 4 MG/2 ML Vial IV (18:45)
[2023-05-07] MEDS: 0.9% Normal Saline (1000mL) 1,000 ML 125 ML IV (18:46)
[2023-05-07] MEDS: Atorvastatin Calcium 20 MG Tablet PO (22:21)
[2023-05-07] MEDS: Azithromycin 500 MG in Dextrose 5%-Water (250mL Bag) 250 ML 250 MG IV (22:22)
[2023-05-08 02:00] VITALS: BP 98/74; PULSE 107; RESP 18; TEMP 36.6; O2SAT 93
[2023-05-08] MEDS: 0.9% Normal Saline (1000mL) 1,000 ML 125 ML IV ×3 (04:16→18:33)
[2023-05-08 06:00] VITALS: BP 92/63; PULSE 119; RESP 16; TEMP 36.7; O2SAT 96
[2023-05-08 06:15] LABS: Absolute Lymphocyte Count 1.39 X10^3/uL (0.83-4.51); Absolute Neutrophil Count 7.8 X10^3/uL (2.0-7.7); Basophil# 0.03 X10^3/uL; Basophil% 0.3 % (0-1); Eosinophil# 0.05 X10^3/uL; Eosinophils% 0.5 % (0-5); Lymphocyte # 1.39 X10^3/ul (0.83-4.51); Lymphocyte % 12.7 % (19-41); Mean Corp Hgb Conc 32.3 g/dL (32-36); Mean Corpuscular Hgb 29.2 pg (27.0-32.0); Mean Corpuscular Volume 90.6 fL (80-94); Mean Platelet Vol. 11.8 fl (6.2-12.0); Monocyte# 1.63 X10^3/uL; Monocyte% 14.9 % (0-10); NRBC Flagged by Analyzer 0 % (0-5); Neutrophil % 71.3 % (47-70); POSITIVE DIFFERENTIAL YES; Platelet Count 198 K/mm3 (150-450); RBC Distribution Width CV 13.7 % (11.6-14.6); RBC Distribution Width SD 45.6 fl (35.1-43.9); Red Blood Count 3.42 M/mm3 (4.6-6.2); White Blood Count 10.9 K/mm3 (4.4-11.0)
[2023-05-08 06:25] LABS: Differential Indicated SCAN CRITERIA MET
[2023-05-08 06:50] LABS: Differential Comment SCANNED
[2023-05-08 06:51] LABS: Anion Gap 4 (5-15); BUN 45 mg/dL (7-18); Calcium,Total 8.1 mg/dL (8.5-10.1); Chloride 113 mmol/L (98-107); EST Glomerular Filtration Rate 39 mL/min (>60); Est Glom Filt Rate - Afr Amer 47 mL/min (>60); Estimated Creatinine Clearance 32.72 ml/min; Glucose 87 mg/dL (74-106); Potassium 3.5 mmol/L (3.5-5.1); Sodium Level 140 mmol/L (136-145)
--- NOTE | 2023-05-08 09:05 | PN.HOSP_ITS ---
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 Objective Data Objective Data Vital Signs: Vital Signs Temp Pulse Resp BP Pulse Ox O2 Del Method O2 Flow Rate 98.1 F 119 H 16 92/63 96 Nasal Cannula 3 05/08/23 06:00 05/08/23 06:00 05/08/23 06:00 05/08/23 06:00 05/08/23 06:00 05/08/23 06:00 05/08/23 06:00 Oxygen Flow Rate (L/min) 3 Oxygen Delivery Method Nasal Cannula Weight: 177 lb 7.554 oz Body Mass Index (BMI) 26.9 Intake & Output: Intake and Output for Last 24 Hours 05/07/23 05/08/23 05/09/23 03:59 03:59 03:59 Intake Total 4305 / 4305 2715.42 / 2715.42 539.58 / 539.58 Output Total 1974 / 1974 400 / 400 Balance 4305 / 4305 740.42 / 740.42 139.58 / 139.58 Lab / Micro Data 05/08/23 05:48 05/08/23 05:48 Labs: Laboratory Results - last 24 hr 05/06/23 20:50: Diff Path Review Reviewed 05/07/23 06:10: Diff Path Review Reviewed 05/08/23 05:48: WBC 10.9, RBC 3.42 L, Hgb 10.0 L, Hct 31.0 L, MCV 90.6, MCH 29.2, MCHC 32.3, RDW Std Deviation 45.6 H, RDW Coeff of Leydi 13.7, Plt Count 198, MPV 11.8, Immature Gran % (Auto) 0.300, Neut % (Auto) 71.3 H, Lymph % (Auto) 12.7 L, [place] % (Auto) 14.9 H, Eos % (Auto) 0.5, Baso % (Auto) 0.3, Absolute Neuts (auto) 7.8 H, Absolute Lymphs (auto) 1.39, Nucleated RBC % 0, Differential Comment SCANNED, Sodium 140, Potassium 3.5, Chloride 113 H, Carbon Dioxide 23.0, Anion Gap 4 L, BUN 45 H, Creatinine 1.80 H, Estim Creat Clear Calc 32.72, Est GFR (MDRD) Af Amer 47 L, Est GFR (MDRD) Non-Af 39 L, BUN/Creatinine Ratio 25.0 H , Glucose 87, Calcium 8.1 L Micro: Microbiology 05/06/23 21:00 Urine, Catheterized Urine Culture - Preliminary GPC Poss Enterococcus sp 05/07/23 08:00 Mucosa - Nasopharyngeal Respiratory Panel (PCR) - Final 05/07/23 00:55 Urine Catheter - Catheter Legionella Antigen - Final 05/07/23 00:55 Urine Catheter - Catheter Streptococcus pneumoniae Antigen (M - Final 05/06/23 20:55 Nasal Secretion SARS-CoV-2 & FLU Antigen (Rapid) - Final Physical Exam Narrative General: Alert, cannot determine orientation, Cooperative, No apparent distress HEENT: Atraumatic, PERRLA, EOMI, Normocephalic Oral: Moist Mucosa Neck: Supple, No JVD Lungs: Diminished, Normal air movement, No rhonchi, No wheeze, No rales Cardiovascular: Tach: Tach, Regular Rhythm, Normal S1, Normal S2, No murmurs Abdomen: Soft, Non Tender, Non-Distended, No Hepato-splenomegaly Extremities: No edema, Capillary Refill Less than 3 Seconds Skin: No rashes, No breakdown Musculoskeletal: No Tenderness to Palpation of Joints or Extremities Neurological: Moves all extremities, Sensory exam intact to light touch and pain Psych/Mental Status: Normal Affect, Appropriate Assessment & Plan Assessment/Plan (1) UTI (urinary tract infection): (2) Severe sepsis: PLAN: Plan 1. Severe sepsis secondary to UTI/RAGHAV ? Urine cultures so far with Enterococcus continue with antibiotics ? CT of the chest abdomen and pelvis is unremarkable for any signs of colitis or consolidation in the lungs ? His mean arterial pressures have been above 65 but his pressures systolic are still low however he has not required any pressor support though he does have some endorgan dysfunction with an RAGHAV ? COVID and flu antigens are negative respiratory pathogen panel is also negati ve ? Has not had a bowel movement yet so likely not a gastroenteritis or colitis ? We will continue with cefepime azithromycin and linezolid until we have culture data and then will narrow 2. HTN/HLD ? We will hold blood pressure medication secondary to his lower pressures ? Continue with Lipitor ? We will hold his hydrochlorothiazide and lisinopril secondary to his renal failure and low blood pressures ? He did have a transient A-fib with RVR secondary to sepsis response does not appear to be in A-fib any longer DVT: Heparin Emergency department doctor discussed case with Ms.Brodie Ruiz (power of graphic design manager) on [phone]. Per discussion between ED physician and power of graphic design manager no heroic measures was recommended. Central line was not recommended. Patient is a DNR CC and will be admitted to progressive care unit on telemetry. Charges/Coding Visit Charges Inpatient E&M: 96382 Subs Hosp L2
[2023-05-08 10:00] VITALS: BP 90/67; PULSE 134; RESP 16; TEMP 36.7; O2SAT 93
[2023-05-08] MEDS: Ondansetron 4 MG/2 ML Vial IV (10:02)
[2023-05-08] MEDS: Heparin Injection (Vial) 5,000 UNIT/ML VIAL 5000 UNIT SC ×2 (10:02→20:58)
[2023-05-08] MEDS: Cholecalciferol (VIT D3) 25 MCG TABLET (1,000 UNITS) 50 MCG PO (10:03)
[2023-05-08] MEDS: Cefepime HCl 2 GM in 0.9% Normal Saline (100mL MB+) 100 ML IV (10:10)
[2023-05-08] MEDS: Linezolid 600 MG 600 MG/300 ML BAG 200 MG IV ×2 (10:11→22:01)
[2023-05-08 14:02] VITALS: BP 88/66; PULSE 119; RESP 16; TEMP 36.4; O2SAT 94
--- NOTE | 2023-05-08 14:19 | CASEMGMT ---
Social Work SW spoke w/pt's guardian, Sundayemelina Ruiz, in regard to pt. She states she has been speaking w/Alley w/DD, and is aware and in agreement that pt needs SNF placement. She has been deferring to Alley as far as which facility, and Alley was to be looking into where had beds. SHARMILA explained to Mary we can help w/that. SHARMILA explained to Mary has list of SNF in network w/pt's insurance, in this geographic area with quality and resource use data via [employer] if they would need it. Mary explains they have spoken about [facility], [facility] and [facility]. SHARMILA explained can get the referral process going for these facilities, and SW can follow up w/her on Wednesday. Mary states understanding. SHARMILA sent referrals via [employer] to [facility], [facility] and [facility]. SW to follow up on Wednesday. DEBORA Varela
[2023-05-08 17:19] VITALS: BP 94/62; PULSE 124; RESP 16; TEMP 36.8; O2SAT 98
[2023-05-08] MEDS: Atorvastatin Calcium 20 MG Tablet PO (20:58)
[2023-05-08] MEDS: Azithromycin 500 MG in Dextrose 5%-Water (250mL Bag) 250 ML 250 MG IV (20:58)
[2023-05-08 21:14] VITALS: BP 104/71; PULSE 121; RESP 18; TEMP 36.7; O2SAT 93
[2023-05-09] VITALS (37 sets, daily range): BP systolic 82–110; BP diastolic 57–78; PULSE 93–142; RESP 12–22; TEMP 36.3–37.2; O2SAT 88–97
[2023-05-09] MEDS: 0.9% Normal Saline (1000mL) 1,000 ML 125 ML IV (03:07)
[2023-05-09 06:07] LABS: Absolute Lymphocyte Count 0.96 X10^3/uL (0.83-4.51); Absolute Neutrophil Count 6.1 X10^3/uL (2.0-7.7); Basophil# 0.02 X10^3/uL; Basophil% 0.2 % (0-1); Eosinophils% 1.2 % (0-5); Hematocrit 30.8 % (40-54); Hemoglobin 9.7 g/dL (13.0-16.5); Lymphocyte # 0.96 X10^3/ul (0.83-4.51); Lymphocyte % 11.3 % (19-41); Mean Corp Hgb Conc 31.5 g/dL (32-36); Mean Corpuscular Volume 91.9 fL (80-94); Mean Platelet Vol. 11.7 fl (6.2-12.0); Monocyte# 1.34 X10^3/uL; Monocyte% 15.7 % (0-10); NRBC Flagged by Analyzer 0 % (0-5); Neutrophil # 6.08 X10^3/uL (2.7-7.7); Neutrophil % 71.4 % (47-70); Platelet Count 171 K/mm3 (150-450); RBC Distribution Width CV 13.6 % (11.6-14.6); RBC Distribution Width SD 46.3 fl (35.1-43.9); Red Blood Count 3.35 M/mm3 (4.6-6.2); White Blood Count 8.5 K/mm3 (4.4-11.0)
[2023-05-09 07:02] LABS: Anion Gap 5 (5-15); BUN 26 mg/dL (7-18); BUN/Creat Ratio 21.3 RATIO (10-20); Calcium,Total 7.7 mg/dL (8.5-10.1); Chloride 111 mmol/L (98-107); Creatinine, Serum 1.22 mg/dL (0.70-1.30); EST Glomerular Filtration Rate 61 mL/min (>60); Est Glom Filt Rate - Afr Amer 74 mL/min (>60); Estimated Creatinine Clearance 48.28 ml/min; Glucose 86 mg/dL (74-106); Potassium 3.5 mmol/L (3.5-5.1); Sodium Level 140 mmol/L (136-145)
[2023-05-09] MEDS: Ampicillin/Sulbactam 3 GM in 0.9% Normal Saline (100mL MB+) 100 ML IV ×3 (08:07→20:04)
[2023-05-09] MEDS: Heparin Injection (Vial) 5,000 UNIT/ML VIAL 5000 UNIT SC ×2 (08:16→20:38)
[2023-05-09] MEDS: Cholecalciferol (VIT D3) 25 MCG TABLET (1,000 UNITS) 50 MCG PO (08:16)
[2023-05-09] MEDS: Metoprolol Tartrate 5 MG/5 ML Vial IV (08:41)
--- NOTE | 2023-05-09 09:17 | PCM.PN.HOSP ---
Subjective Subjective Has had increasing oxygen requirement secondary to the IV fluids for hypotension. He also went from what appears to be a sinus tach into an A-fib with RVR. EKG done straits lateral ST depressions Objective Data Objective Data Vital Signs: Vital Signs Temp Pulse Resp BP Pulse Ox O2 Del Method O2 Flow Rate 98 F 142 H 18 110/67 90 Nasal Cannula 10 05/09/23 08:02 05/09/23 08:41 05/09/23 08:02 05/09/23 08:41 05/09/23 08:49 05/09/23 08:49 05/09/23 08:49 Oxygen Flow Rate (L/min) 10 Oxygen Delivery Method Nasal Cannula Weight: 177 lb 7.554 oz Body Mass Index (BMI) 26.9 Intake & Output: Intake and Output for Last 24 Hours 05/08/23 05/09/23 05/10/23 03:59 03:59 03:59 Intake Total 2715.42 / 2715.42 4521.25 / 4521.25 753.67 / 753.67 Output Total 1974 / 1974 1550 / 1550 350 / 350 Balance 740.42 / 740.42 2971.25 / 2971.25 403.67 / 403.67 Lab / Micro Data 05/09/23 05:10 05/09/23 05:10 Labs: Laboratory Results - last 24 hr 05/09/23 05:10: WBC 8.5, RBC 3.35 L, Hgb 9.7 L, Hct 30.8 L, MCV 91.9, MCH 29.0, MCHC 31.5 L, RDW Std Deviation 46.3 H, RDW Coeff of Leydi 13.6, Plt Count 171, MPV 11.7, Immature Gran % (Auto) 0.200, Neut % (Auto) 71.4 H, Lymph % (Auto) 11.3 L, [place] % (Auto) 15.7 H, Eos % (Auto) 1.2, Baso % (Auto) 0.2, Absolute Neuts (auto) 6.1, Absolute Lymphs (auto) 0.96, Nucleated RBC % 0, Sodium 140, Potassium 3.5, Chloride 111 H, Carbon Dioxide 24.0, Anion Gap 5, BUN 26 H, Creatinine 1.22, Estim Creat Clear Calc 48.28, Est GFR (MDRD) Af Amer 74, Est GFR (MDRD) Non-Af 61, BUN/Creatinine Ratio 21.3 H, Glucose 86, Calcium 7.7 L Micro: Microbiology 05/06/23 21:00 Urine, Catheterized Urine Culture - Final Enterococcus faecalis 05/07/23 08:00 Mucosa - Nasopharyngeal Respiratory Panel (PCR) - Final 05/07/23 00:55 Urine Catheter - Catheter Legionella Antigen - Final 05/07/23 00:55 Urine Catheter - Catheter Streptococcus pneumoniae Antigen (M - Final 05/06/23 20:55 Nasal Secretion SARS-CoV-2 & FLU Antigen (Rapid) - Final Physical Exam Narrative General: Alert, cannot determine orientation, Cooperative, No apparent distress HEENT: Atraumatic, PERRLA, EOMI, Normocephalic Oral: Moist Mucosa Neck: Supple, No JVD Lungs: Diminished, Normal air movement, No rhonchi, No wheeze, No rales Cardiovascular: Irregular rate and irregular rhythm, Normal S1, Normal S2, No murmurs Abdomen: Soft, Non Tender, Non-Distended, No Hepato-splenomegaly Extremities: No edema, Capillary Refill Less than 3 Seconds Skin: No rashes, No breakdown Musculoskeletal: No Tenderness to Palpation of Joints or Extremities Neurological: Moves all extremities, Sensory exam intact to light touch and pain Psych/Mental Status: Normal Affect, Appropriate Assessment & Plan Assessment/Plan (1) UTI (urinary tract infection): (2) Severe sepsis: PLAN: Plan 1. Severe sepsis secondary to Enterococcus UTI/RAGHAV ? Urine cultures so far with Enterococcus continue with Unasyn and will discontinue cefepime and linezolid ? CT of the chest abdomen and pelvis is unremarkable for any signs of colitis or consolidation in the lungs ? His mean arterial pressures have been above 65 but his pressures systolic are still low however he has not required any pressor support though he does have some endorgan dysfunction with an RAGHAV ? COVID and flu antigens are negative respiratory pathogen panel is also negative ? Has not had a bowel movement yet so likely not a gastroenteritis or colitis ? We will continue with cefepime azithromycin and linezolid until we have culture data and then will narrow 2. HTN/HLD/A-fib with RVR ? We will hold blood pressure medication secondary to his lower pressures ? Continue with Lipitor ? Given his hypotension a lot of his blood pressure medications have been held and he was given IV fluids which has caused some increasing oxygen requirement ? He was transiently in A-fib earlier in his admission however now it appears that he has flipped into A-fib he did have an improvement in his rate control with IV Lopressor will check blood pressure and if he tolerated that then can transition to p.o. metoprolol to try to help control his heart rate hopefully without decreasing his blood pressure significantly ? We will obtain troponins and if there is no improvement in his heart rate or if he does become hypotensive will need to consult cardiology DVT: Heparin Emergency department doctor discussed case with Ms.Brodie Ruiz (power of criminal attorney) on [phone]. Per discussion between ED physician and power of criminal attorney no heroic measures was recommended. Central line was not recommended. Patient is a DNR CC and will be admitted to progressive care unit on telemetry. Charges/Coding Visit Charges Inpatient E&M: 80347 Subs Hosp L2
[2023-05-09 10:08] LABS: Troponin-I HS 305 pg/mL (3.0-78.0)
[2023-05-09] MEDS: Amiodarone 150 MG in Dextrose 5%-Water (100mL Bag) 100 ML 600 MG IV BOLUS (10:15)
[2023-05-09] MEDS: Amiodarone 360 MG in Dextrose 5% Viaflo Bag 192.8 ML 33.3 MG CONT INF (10:32)
[2023-05-09 13:03] LABS: Troponin-I HS 349 pg/mL (3.0-78.0)
[2023-05-09] MEDS: 0.9% Saline Lock 10 ML Syringe IV ×2 (13:05→20:41)
[2023-05-09] MEDS: 0.9% Normal Saline (1000mL) 1,000 ML 75 ML IV (13:06)
[2023-05-09] MEDS: Sodium Chloride 0.65% 1 SPRAY SPRAY.BTL 2 SPRAY NASAL (13:06)
[2023-05-09 15:52] LABS: Troponin-I HS 475 pg/mL (3.0-78.0)
[2023-05-09] MEDS: Amiodarone 360 MG in Dextrose 5% Viaflo Bag 192.8 ML 16.7 MG CONT INF (16:45)
[2023-05-09] MEDS: Ondansetron 4 MG/2 ML Vial IV (18:46)
[2023-05-10] VITALS (24 sets, daily range): BP systolic 93–124; BP diastolic 7–85; PULSE 93–143; RESP 12–60; TEMP 36.3–37.7; O2SAT 86–128
[2023-05-10] MEDS: 0.9% Normal Saline (1000mL) 1,000 ML 75 ML IV (03:22)
[2023-05-10] MEDS: Amiodarone 360 MG in Dextrose 5% Viaflo Bag 192.8 ML 16.7 MG CONT INF (04:55)
[2023-05-10] MEDS: Ampicillin/Sulbactam 3 GM in 0.9% Normal Saline (100mL MB+) 100 ML IV ×3 (04:55→20:05)
[2023-05-10 06:32] LABS: Absolute Lymphocyte Count 0.87 X10^3/uL (0.83-4.51); Absolute Neutrophil Count 8.1 X10^3/uL (2.0-7.7); Basophil# 0.02 X10^3/uL; Basophil% 0.2 % (0-1); Eosinophil# 0.02 X10^3/uL; Eosinophils% 0.2 % (0-5); Hematocrit 34.3 % (40-54); Hemoglobin 10.6 g/dL (13.0-16.5); Lymphocyte # 0.87 X10^3/ul (0.83-4.51); Lymphocyte % 8.4 % (19-41); Mean Corp Hgb Conc 30.9 g/dL (32-36); Mean Corpuscular Hgb 28.3 pg (27.0-32.0); Mean Corpuscular Volume 91.7 fL (80-94); Mean Platelet Vol. 11.9 fl (6.2-12.0); Monocyte# 1.34 X10^3/uL; Monocyte% 12.9 % (0-10); NRBC Flagged by Analyzer 0 % (0-5); Neutrophil # 8.09 X10^3/uL (2.7-7.7); Neutrophil % 77.8 % (47-70); Platelet Count 210 K/mm3 (150-450); RBC Distribution Width CV 13.5 % (11.6-14.6); RBC Distribution Width SD 45.8 fl (35.1-43.9); Red Blood Count 3.74 M/mm3 (4.6-6.2); White Blood Count 10.4 K/mm3 (4.4-11.0)
[2023-05-10 07:00] LABS: Anion Gap 6 (5-15); BUN 20 mg/dL (7-18); Chloride 112 mmol/L (98-107); Creatinine, Serum 1.11 mg/dL (0.70-1.30); EST Glomerular Filtration Rate 68 mL/min (>60); Est Glom Filt Rate - Afr Amer 82 mL/min (>60); Estimated Creatinine Clearance 53.06 ml/min; Glucose 85 mg/dL (74-106); Potassium 3.7 mmol/L (3.5-5.1); Sodium Level 142 mmol/L (136-145)
[2023-05-10] MEDS: Furosemide 20 MG/2 ML VIAL IV (08:14)
[2023-05-10] MEDS: 0.9% Saline Lock 10 ML Syringe IV (08:14)
--- NOTE | 2023-05-10 09:02 | PN.HOSP_ITS ---
Subjective Subjective Continued tachycardia, and increasing oxygen requirements Objective Data Objective Data Vital Signs: Vital Signs Temp Pulse Resp BP Pulse Ox O2 Del Method O2 Flow Rate 98.7 F 93 18 107/64 128 Airvo 60 05/10/23 07:53 05/10/23 08:47 05/10/23 08:47 05/10/23 08:00 05/10/23 08:47 05/10/23 08:00 05/10/23 08:00 FiO2 91 05/10/23 08:47 Oxygen Flow Rate (L/min) 60 Oxygen Delivery Method Airvo Weight: 177 lb 7.554 oz Body Mass Index (BMI) 26.9 Intake & Output: Intake and Output for Last 24 Hours 05/09/23 05/10/23 05/11/23 03:59 03:59 03:59 Intake Total 4521.25 / 4521.25 2811.89 / 2811.89 592.62 / 592.62 Output Total 1550 / 1550 900 / 900 400 / 400 Balance 2971.25 / 2971.25 1911.89 / 1911.89 192.62 / 192.62 Lab / Micro Data 05/10/23 05:52 05/10/23 05:52 Labs: Laboratory Results - last 24 hr 05/09/23 09:39: Troponin I High Sens 305 H* 05/09/23 11:28: Troponin I High Sens 349 H* 05/09/23 15:08: Troponin I High Sens 475 H* 05/10/23 05:52: WBC 10.4, RBC 3.74 L, Hgb 10.6 L, Hct 34.3 L, MCV 91.7, MCH 28.3, MCHC 30.9 L, RDW Std Deviation 45.8 H, RDW Coeff of Leydi 13.5, Plt Count 210, MPV 11.9, Immature Gran % (Auto) 0.500, Neut % (Auto) 77.8 H, Lymph % (Auto) 8.4 L, [place] % (Auto) 12.9 H, Eos % (Auto) 0.2, Baso % (Auto) 0.2, Absolute Neuts (auto) 8.1 H, Absolute Lymphs (auto) 0.87, Nucleated RBC % 0, Sodium 142, Potassium 3.7, Chloride 112 H, Carbon Dioxide 24.0, Anion Gap 6, BUN 20 H, Creatinine 1.11, Estim Creat Clear Calc 53.06, Est GFR (MDRD) Af Amer 82, Est GFR (MDRD) Non-Af 68, BUN/Creatinine Ratio 18.0, Glucose 85, Calcium 8.0 L Micro: Microbiology 05/06/23 20:50 Blood Culture (Wb) - Anticubital Right Blood Culture - Preliminary No growth in 48 hours. 05/06/23 20:50 Blood Culture (Wb) - Anticubital Left Blood Culture - Preliminary No growth in 48 hours. 05/06/23 21:00 Urine, Catheterized Urine Culture - Final Enterococcus faecalis 05/07/23 08:00 Mucosa - Nasopharyngeal Respiratory Panel (PCR) - Final 05/07/23 00:55 Urine Catheter - Catheter Legionella Antigen - Final 05/07/23 00:55 Urine Catheter - Catheter Streptococcus pneumoniae Antigen (M - Final 05/06/23 20:55 Nasal Secretion SARS-CoV-2 & FLU Antigen (Rapid) - Final Physical Exam Narrative General: Alert, cannot determine orientation, Cooperative, mild respiratory distress HEENT: Atraumatic, PERRLA, EOMI, Normocephalic Oral: Moist Mucosa Neck: Supple, No JVD Lungs: Diminished, Normal air movement, No rhonchi, No wheeze, scattered rales, tachypneic Cardiovascular: Irregular rate and irregular rhythm, Normal S1, Normal S2, No murmurs Abdomen: Soft, Non Tender, Non-Distended, No Hepato-splenomegaly Extremities: No edema, Capillary Refill Less than 3 Seconds Skin: No rashes, No breakdown Musculoskeletal: No Tenderness to Palpation of Joints or Extremities Neurological: Moves all extremities, Sensory exam intact to light touch and pain Psych/Mental Status: Normal Affect, Appropriate Assessment & Plan Assessment/Plan (1) UTI (urinary tract infection): (2) Severe sepsis: PLAN: Plan 1. Severe sepsis secondary to Enterococcus UTI/RAGHAV ? Urine cultures so far with Enterococcus continue with Unasyn and will discontinue cefepime and linezolid ? CT of the chest abdomen and pelvis is unremarkable for any signs of colitis or consolidation in the lungs ? His mean arterial pressures have been above 65 but his systolic pressures are still low however he has not required any pressor support though he does have some endorgan dysfunction with an RAGHAV ? COVID and flu antigens are negative respiratory pathogen panel is also negati ve 2. HTN/HLD/A-fib with RVR/acute hypoxic respiratory distress ? We will hold blood pressure medication secondary to his lower pressures ? Continue with Lipitor ? We will discontinue IV fluids and start him on a dose of IV Lasix given his respiratory distress likely from volume overload versus flash pulmonary edema between that and A-fib with RVR ? We will transition from IV amiodarone to p.o. amiodarone today ? He has had a climbing troponin which is likely demand ischemia related to his afib. Will consult cardiology DVT: Heparin Emergency department doctor discussed case with Ms.Brodie Ruiz (power of patent prosecution attorney) on [phone]. Per discussion between ED physician and power of att orney no heroic measures was recommended. Central line was not recommended. Patient is a DNR CC and will be admitted to progressive care unit on telemetry. Charges/Coding Visit Charges Inpatient E&M: 62139 Subs Hosp L2
[2023-05-10] MEDS: Amiodarone 200 MG Tablet PO ×2 (10:28→20:05)
[2023-05-10] MEDS: Heparin Injection (Vial) 5,000 UNIT/ML VIAL 5000 UNIT SC ×2 (11:22→20:07)
--- NOTE | 2023-05-10 12:48 | CASEMGMT ---
Social Work Patient identified that he has a living will and power of claim attorney in place, but has not brought documents to . Patient encouraged to do so. Power of claim attorney identified as patient's caregiver. Celine Richter, HANGER, CORN PRESS OPERATOR
--- NOTE | 2023-05-10 13:30 | CPS ---
Changed H2O bag on Airvo.
--- NOTE | 2023-05-10 13:31 | CASEMGMT ---
[facility] and [facility] both asked how staff communicates with patient and if patient has any behaviors. SHARMILA called [facility] and spoke with Alma. Alma said patient has motions that he uses to tell people what he wants. They eventually have learned what his different motions mean. As far as behaviors patient can get aggressive, and it is extremely important that the patient have his own bathroom. Patient does not like to share a bathroom as he will smear feces on the wall in the bathroom. SHARMILA called [facility] and told Jasmyne this information. SHARMILA passed along this information to [facility] as well. Bernarda Camejo CIRCLE EDGER ANGELINE
--- NOTE | 2023-05-10 17:47 | PCM.CONS.C ---
Assessment & Plan Assessment/Plan (1) Atrial fibrillation: PLAN: He is in atrial fibrillation with an uncontrolled ventricular response rate. At this time my recommendation will be to finish up the intravenous amiodarone and switch him to oral amiodarone 200 mg twice a day and add a beta-alba. I will also suggest he be anticoagulated with Eliquis 5 mg twice a day. An echocardiogram should be performed to assess his ventricular function. (2) Hypertension: PLAN: He does have a history of hypertension and his blood pressure does not appear to be a problem at this time. We will attempt to optimize his medical therapy. We will obtain echocardiogram to assess ventricular function. We will start metoprolol 25 mg twice a day starting later this evening. Thank you for allowing me to participate in the care of your patient. Please don't hesitate to call if any issues arise. HPI Consult Data Date of Consult: 05/10/23 HPI Narrative HPI Narrative: ED VAZQUEZ, is a 77 M who presents to the emergency room with shortness of breath and fatigue. He apparently has recently been treated for a urinary tract infection and in the emergency room was noted to be hypotensive and in atrial fibrillation with rapid ventricular response rate. He was started on intravenous amiodarone and now being transitioned to oral amiodarone. Cardiology was asked to evaluate him. He denies any chest pain or shortness of breath or paroxysmal nocturnal dyspnea as best as I can tell. As you know he does have hearing impairment and is a senior living resident. [facility] Home Medications amlodipine 10 mg tablet 10 mg PO DAILY 10/06/22 [History Last Taken Unknown] atorvastatin 20 mg tablet 20 mg PO DAILY 10/06/22 [History Last Taken Unknown] hydrochlorothiazide 12.5 mg capsule 12.5 mg PO DAILY 10/06/22 [History Last Taken Unknown] lisinopril 20 mg tablet 20 mg PO BID 10/06/22 [History Last Taken Unknown] atenolol 25 mg tablet 25 mg PO Q24H 05/06/23 [History Last Taken Unknown] cholecalciferol (vitamin D3) 50 mcg (2,000 unit) capsule (Vitamin D3) 2,000 unit PO DAILY 05/06/23 [History Last Taken Unknown] Allergy/AdvReac Type Severity Reaction Status Date / Time No Known Allergies Allergy Verified 05/06/23 20:26 Family History unable to obtain Surgical History unable to obtain Social History housing: other details: long term Smoking Status: Unknown if ever smoked ROS ROS Narrative Difficult to obtain but as best as 1 could obtain Review of Systems ROS Unobtainable: due to mental condition Constitutional Constitutional: Denies fever(s) or weight loss Eyes Eyes: Reports systems reviewed and no addt'l complaints, except as documented ENT HEENT: Reports systems reviewed and no addt'l complaints, except as documented Cardiovascular Cardiovascular: Denies chest pain at rest, chest pain with activity, dyspnea at rest, dyspnea on exertion, edema, palpitations or paroxysmal nocturnal dyspnea Respiratory/Chest Respiratory/Chest: Denies dyspnea on exertion, productive cough, shortness of breath at rest or shortness of breath with exertion Gastrointestinal Gastrointestinal: Denies change in bowel habits, nausea, vomiting or weight changes Genitourinary Genitourinary: Denies difficulty urinating Musculoskeletal Musculoskeletal: Denies joint stiffness or muscle weakness Integumentary Integumentary: Denies lesions Neurologic Neurologic: Denies dizziness or syncope Psychiatric Psychiatric: Denies anxiety Endocrine Endocrinology: Denies excessive sweating or fatigue Hematologic/Lymphatic Hematologic/Lymphatic: Denies anemia Allergic/Immunologic Allergic/Immunologic: Denies seasonal rhinorrhea Physical Exam Const alert, oriented x3 and no apparent distress General Appearance: cooperative HEENT hearing grossly normal bilaterally Head and Scalp: atraumatic Eyes EOMs intact bilaterally Neck General: normal visual inspection Chest inspection of chest normal and palpation of chest normal Resp normal respiratory effort Auscultation: clear to auscultation bilaterally Cardio S1 normal heart sound and S2 normal heart sound Jugular Venous Distention: JVD Rhythm: abnormal rhythm irregularly irregular GI normal to inspection, nondistended, normoactive bowel sounds Extremity normal capillary refill and no pedal edema Peripheral Pulses: Yes pulses 2+ throughout and femoral pulses present Skin no rashes or lesions noted Neuro oriented x3 and CN's II-XII intact bilaterally Psych Appearance: grossly normal and appropriate Risk Stratification Risk Stratification Applicable: No Objective Data Vital Signs: Vital Signs Temp Pulse Resp BP Pulse Ox O2 Del Method O2 Flow Rate 97.6 F L 125 H 18 111/72 96 Airvo 60 05/10/23 17:20 05/10/23 17:20 05/10/23 17:20 05/10/23 17:20 05/10/23 17:20 05/10/23 17:20 05/10/23 17:20 FiO2 83 05/10/23 17:20 Oxygen Flow Rate (L/min) 60 Oxygen Delivery Method Airvo Weight: 177 lb 7.554 oz Body Mass Index (BMI) 26.9 Intake & Output: Intake and Output for Last 24 Hours 05/08/23 05/09/23 05/10/23 23:59 23:59 23:59 Intake Total 4075.42 / 4075.42 2782.72 / 2782.72 1522.48 / 1522.48 Output Total 1550 / 1550 900 / 900 1650 / 1650 Balance 2525.42 / 2525.42 1882.72 / 1882.72 -127.52 / -127.52 Lab / Micro Data 05/10/23 05:52 05/10/23 05:52 Labs: Laboratory Results - last 24 hr 05/10/23 05:52: WBC 10.4, RBC 3.74 L, Hgb 10.6 L, Hct 34.3 L, MCV 91.7, MCH 28.3, MCHC 30.9 L, RDW Std Deviation 45.8 H, RDW Coeff of Leydi 13.5, Plt Count 210, MPV 11.9, Immature Gran % (Auto) 0.500, Neut % (Auto) 77.8 H, Lymph % (Auto) 8.4 L, [place] % (Auto) 12.9 H, Eos % (Auto) 0.2, Baso % (Auto) 0.2, Absolute Neuts (auto) 8.1 H, Absolute Lymphs (auto) 0.87, Nucleated RBC % 0, Sodium 142, Potassium 3.7, Chloride 112 H, Carbon Dioxide 24.0, Anion Gap 6, BUN 20 H, Creatinine 1.11, Estim Creat Clear Calc 53.06, Est GFR (MDRD) Af Amer 82, Est GFR (MDRD) Non-Af 68, BUN/Creatinine Ratio 18.0, Glucose 85, Calcium 8.0 L Cardiology Labs/Tests 05/10/23 05:52: WBC 10.4, RBC 3.74 L, Hgb 10.6 L, Hct 34.3 L, MCV 91.7, MCH 28.3, MCHC 30.9 L, Plt Count 210, MPV 11.9, Immature Gran % (Auto) 0.500, Neut % (Auto) 77.8 H, Lymph % (Auto) 8.4 L, [place] % (Auto) 12.9 H, Eos % (Auto) 0.2, Baso % (Auto) 0.2, Absolute Neuts (auto) 8.1 H, Nucleated RBC % 0, Sodium 142, Potassium 3.7, Chloride 112 H, Carbon Dioxide 24.0, Anion Gap 6, BUN 20 H, Creatinine 1.11, Est GFR (MDRD) Af Amer 82, Est GFR (MDRD) Non-Af 68, BUN/Creatinine Ratio 18.0, Glucose 85, Calcium 8.0 L Rhythm: EKG: ECHO: Stress Test: Cardiac Cath: PCI: CT Surgery: Holter monitor: EPS: PPM: CXR: Chest CT Scan:
--- NOTE | 2023-05-10 17:49 | ECHOD_ITS ---
Reason For Study: Afib/Flutter Procedure This was a 2D Doppler, Color Flow transthoracic echocardiogram. Patient refused subcostal and SSN images. Images obtained with patient sitting upright. Exam performed portable in patient room. Left Ventricle Normal LV size. The left ventricular ejection fraction is 30 %. There is moderate to severe global hypokinesis of the left ventricle. Right Ventricle Mildly dilated right ventricle. Mild to moderate global right ventricular systolic dysfunction. Atria The left atrium is mildly enlarged. Mitral Valve There is mild mitral annular calcification. Bileaflet diffuse mitral valve thickening. Mild (1+) eccentric mitral valve insufficiency. Tricuspid Valve Normal tricuspid valve. Mild to moderate (1-2+) tricuspid valve insufficiency. Pulmonary artery systolic pressure is 45 mmHg. Aortic Valve Normal aortic valve. Trisinus/trileaflet aortic valve. Pulmonic Valve Normal pulmonic valve. Pericardium/Pleural No pericardial effusion. Moderate size left pleural effusion. MMode/2D Measurements & Calculations LVIDd: 5.2 cm IVSd: 1.2 cm Ao root diam: 4.1 cm LVIDs: 4.2 cm LVPWd: 1.1 cm LA dimension: 4.3 cm RVDd: 3.9 cm FS: 19.7 % LAV(MOD-bp): 73.4 ml LA A4 area: 23.7 cm2 RA A4 area: 16.6 cm2 LAV(MOD-bp) Indexed: 37.8 ml/m2 LAV(MOD-sp2): 69.2 ml LAV(MOD-sp4): 69.0 ml TAPSE: 0.68 cm Doppler Measurements & Calculations MV E max vickie: 89.9 cm/sec MV V2 max: 108.5 cm/sec Ao V2 max: 95.4 cm/sec MV max P.7 mmHg Ao max P.7 mmHg MV V2 mean: 58.1 cm/sec Ao V2 mean: 68.7 cm/sec MV mean P.8 mmHg Ao mean P.1 mmHg MV V2 VTI: 20.1 cm Ao V2 VTI: 14.5 cm AV (velocity ratio): 0.89 LV V1 max: 82.0 cm/sec MR max vickie: 434.6 cm/sec PA V2 max: 61.9 cm/sec LV V1 max P.7 mmHg MR max P.6 mmHg LV V1 mean P.5 mmHg MR mean vickie: 350.1 cm/sec LV V1 mean: 57.1 cm/sec MR mean P.6 mmHg LV V1 VTI: 13.0 cm MR VTI: 105.8 cm TR max vickie: 317.8 cm/sec TR max P.4 mmHg ECHO/Echo Complete Interpretation Summary The left ventricular ejection fraction is 30 %. Normal LV size. Mild (1+) eccentric mitral valve insufficiency. Moderate size left pleural effusion. There is moderate to severe global hypokinesis of the left ventricle. Pulmonary artery systolic pressure is 45 mmHg. Ordering Physician: Jonatan Montero Performed By: Anam Salguero RCS
[2023-05-10] MEDS: Atorvastatin Calcium 20 MG Tablet PO (20:05)
[2023-05-10] MEDS: Metoprolol Tartrate 25 MG Tablet PO (20:05)
[2023-05-11] VITALS (18 sets, daily range): BP systolic 105–123; BP diastolic 66–79; PULSE 113–138; RESP 13–28; TEMP 36.6–37.8; O2SAT 90–96
[2023-05-11] MEDS: Ampicillin/Sulbactam 3 GM in 0.9% Normal Saline (100mL MB+) 100 ML IV ×3 (05:03→23:00)
[2023-05-11 05:55] LABS: Absolute Lymphocyte Count 0.82 X10^3/uL (0.83-4.51); Absolute Neutrophil Count 7.9 X10^3/uL (2.0-7.7); Basophil# 0.03 X10^3/uL; Basophil% 0.3 % (0-1); Eosinophil# 0.05 X10^3/uL; Eosinophils% 0.5 % (0-5); Hematocrit 33.5 % (40-54); Hemoglobin 10.7 g/dL (13.0-16.5); Lymphocyte # 0.82 X10^3/ul (0.83-4.51); Lymphocyte % 7.8 % (19-41); Mean Corp Hgb Conc 31.9 g/dL (32-36); Mean Corpuscular Hgb 28.5 pg (27.0-32.0); Mean Corpuscular Volume 89.3 fL (80-94); Mean Platelet Vol. 11.4 fl (6.2-12.0); Monocyte# 1.62 X10^3/uL; Monocyte% 15.5 % (0-10); NRBC Flagged by Analyzer 0 % (0-5); Neutrophil # 7.89 X10^3/uL (2.7-7.7); Neutrophil % 75.5 % (47-70); POSITIVE DIFFERENTIAL YES; Platelet Count 223 K/mm3 (150-450); RBC Distribution Width CV 13.4 % (11.6-14.6); RBC Distribution Width SD 43.9 fl (35.1-43.9); Red Blood Count 3.75 M/mm3 (4.6-6.2); White Blood Count 10.5 K/mm3 (4.4-11.0)
[2023-05-11 05:58] LABS: Differential Indicated SCAN CRITERIA MET
[2023-05-11 06:38] LABS: Anion Gap 9 (5-15); BUN 16 mg/dL (7-18); BUN/Creat Ratio 15.8 RATIO (10-20); Calcium,Total 8.3 mg/dL (8.5-10.1); Chloride 108 mmol/L (98-107); Creatinine, Serum 1.01 mg/dL (0.70-1.30); EST Glomerular Filtration Rate 76 mL/min (>60); Est Glom Filt Rate - Afr Amer 92 mL/min (>60); Estimated Creatinine Clearance 58.32 ml/min; Glucose 86 mg/dL (74-106); Potassium 3.5 mmol/L (3.5-5.1); Sodium Level 141 mmol/L (136-145)
--- NOTE | 2023-05-11 08:03 | PCM.PN.CARD ---
Subjective Subjective Patient seen and evaluated. No obvious complaints at this time Objective Data Vital Signs: Vital Signs Temp Pulse Resp BP Pulse Ox O2 Del Method O2 Flow Rate 97.9 F 129 H 18 112/67 93 Airvo 60 05/11/23 05:00 05/11/23 07:40 05/11/23 07:40 05/11/23 05:00 05/11/23 07:40 05/11/23 07:40 05/11/23 07:40 FiO2 80 05/11/23 07:40 Oxygen Flow Rate (L/min) 60 Oxygen Delivery Method Airvo Weight: 177 lb 7.554 oz Body Mass Index (BMI) 26.9 Intake & Output: Intake and Output for Last 24 Hours 05/09/23 05/10/23 05/11/23 23:59 23:59 23:59 Intake Total 2782.72 / 2782.72 1634.48 / 1634.48 352 / 352 Output Total 900 / 900 1650 / 2000 500 / 500 Balance 1882.72 / 1882.72 -15.52 / -365.52 -148 / -148 Lab / Micro Data 05/11/23 05:35 05/11/23 05:35 Labs: Laboratory Results - last 24 hr 05/11/23 05:35: WBC 10.5, RBC 3.75 L, Hgb 10.7 L, Hct 33.5 L, MCV 89.3, MCH 28.5, MCHC 31.9 L, RDW Std Deviation 43.9, RDW Coeff of Leydi 13.4, Plt Count 223, MPV 11.4, Immature Gran % (Auto) 0.400, Neut % (Auto) 75.5 H, Lymph % (Auto) 7.8 L, Mccreary % (Auto) 15.5 H, Eos % (Auto) 0.5, Baso % (Auto) 0.3, Absolute Neuts (auto) 7.9 H, Absolute Lymphs (auto) 0.82 L, Nucleated RBC % 0, Sodium 141, Potassium 3.5, Chloride 108 H, Carbon Dioxide 24.0, Anion Gap 9, BUN 16, Creatinine 1.01, Estim Creat Clear Calc 58.32, Est GFR (MDRD) Af Amer 92, Est GFR (MDRD) Non-Af 76, BUN/Creatinine Ratio 15.8, Glucose 86, Calcium 8.3 L Cardiology Labs/Tests 05/11/23 05:35: WBC 10.5, RBC 3.75 L, Hgb 10.7 L, Hct 33.5 L, MCV 89.3, MCH 28.5, MCHC 31.9 L, Plt Count 223, MPV 11.4, Immature Gran % (Auto) 0.400, Neut % (Auto) 75.5 H, Lymph % (Auto) 7.8 L, Mccreary % (Auto) 15.5 H, Eos % (Auto) 0.5, Baso % (Auto) 0.3, Absolute Neuts (auto) 7.9 H, Nucleated RBC % 0, Sodium 141, Potassium 3.5, Chloride 108 H, Carbon Dioxide 24.0, Anion Gap 9, BUN 16, Creatinine 1.01, Est GFR (MDRD) Af Amer 92, Est GFR (MDRD) Non-Af 76, BUN/Creatinine Ratio 15.8, Glucose 86, Calcium 8.3 L Rhythm: EKG: ECHO: Stress Test: Cardiac Cath: PCI: CT Surgery: Holter monitor: EPS: PPM: CXR: Chest CT Scan: Physical Exam Const alert, oriented x3 and no apparent distress General Appearance: cooperative HEENT hearing grossly normal bilaterally Head and Scalp: atraumatic Eyes EOMs intact bilaterally Neck General: normal visual inspection Chest inspection of chest normal and palpation of chest normal Resp normal respiratory effort Auscultation: clear to auscultation bilaterally Cardio regular rate, regular rhythm, S1 normal heart sound and S2 normal heart sound Jugular Venous Distention: JVD GI normal to inspection, nondistended, normoactive bowel sounds Extremity normal capillary refill and no pedal edema Peripheral Pulses: Yes pulses 2+ throughout and femoral pulses present Skin no rashes or lesions noted Neuro oriented x3 and CN's II-XII intact bilaterally Psych Appearance: grossly normal and appropriate Assessment & Plan Assessment/Plan (1) Atrial fibrillation: PLAN: He is in atrial fibrillation with an uncontrolled ventricular response rate. At this time my recommendation will be to switch him to oral amiodarone 200 mg twice a day and add a beta-alba. I will also suggest he be anticoagulated with Eliquis 5 mg twice a day. An echocardiogram should be performed to assess his ventricular function. (2) Hypertension: PLAN: He does have a history of hypertension and his blood pressure does not appear to be a problem at this time. We will attempt to optimize his medical therapy. We will obtain echocardiogram to assess ventricular function. We will start metoprolol 25 mg twice a day . Thank you for allowing me to participate in the care of your patient. Please don't hesitate to call if any issues arise.
[2023-05-11] MEDS: Metoprolol Tartrate 25 MG Tablet PO (08:51)
[2023-05-11] MEDS: Heparin Injection (Vial) 5,000 UNIT/ML VIAL 5000 UNIT SC ×2 (08:52→22:59)
[2023-05-11] MEDS: Cholecalciferol (VIT D3) 25 MCG TABLET (1,000 UNITS) 50 MCG PO (08:52)
[2023-05-11] MEDS: Amiodarone 200 MG Tablet PO ×2 (08:52→23:00)
[2023-05-11] MEDS: Sodium Chloride 0.65% 1 SPRAY SPRAY.BTL 2 SPRAY NASAL (09:15)
[2023-05-11] MEDS: Acetaminophen 325 MG Tablet 650 MG PO (09:15)
--- NOTE | 2023-05-11 10:06 | CASEMGMT ---
[facility] has declined patient due to patient not having his own bathroom. (Patient would have a big problem if he had to share a bathroom). [facility] has declined patient. [facility] has also declined patient due to no bed availability. will check with patient's guardian on other choices. Bernarda Camejo PUBLIC TRANSIT BUS DRIVER ANGELINE
--- NOTE | 2023-05-11 10:18 | CASEMGMT ---
SHARMILA called patient's guardian Mary. SHARMILA explained the three facilities she gave SW for patient have all declined patient. Mary was not sure which facility to go with next and asked SHARMILA to call Alley, patient's Board of [employer] Hogshead Assembler. SHARMILA called Alley and left her a voice mail requesting a return call. Bernarda MARCUS
--- NOTE | 2023-05-11 11:45 | CASEMGMT ---
SHARMILA received a call from Alley with [employer] of [employer]. Alley said patient can share a bathroom. Alley asked SHARMILA to see if [facility] would take patient if he shared a bathroom. Alley said if it is going to be a barrier he could go back to the snf until they find another place. Alley said she and patient's guardian really want patient to stay in [facility]. SHARMILA sent a message to [facility] via [facility] asking if they would take patient if he would share a bathroom. Bernarda MARCUS
--- NOTE | 2023-05-11 11:55 | CASEMGMT ---
SHARMILA received another phone call from Alley. Alley said she may have another possible alf for patient. Alley would still like SHARMILA to pursue [facility]. Bernarda MARCUS
--- NOTE | 2023-05-11 12:37 | RAD_ITS ---
STUDY: X-RAY CHEST REASON FOR EXAM: Male, 77 years old. hypoxia TECHNIQUE: AP portable COMPARISON: May 06, 2023 FINDINGS: Less than optimal inspiratory effort and mild bilateral perihilar interstitial thickening. Dense consolidation left lower lobe with possible small effusion . Heart is enlarged. Normal mediastinum and marcela. Normal visualized pulmonary arteries. Mildly calcified aortic arch and descending thoracic aorta. Normal visualized thoracic spine. Normal visualized ribs, clavicles, and shoulders. There is no demonstrated abnormality of the visualized soft tissue structures of the upper abdomen. The consolidation of left lower lobe has progressed since previous exam and possible pleural effusion is new RAD/Chest 1 View (Portable) IMPRESSION: Increasing left lower lobe consolidation with possible small pleural effusion. Electronically Signed: Daniel Mera MD at 18:50 EDT ,
--- NOTE | 2023-05-11 14:09 | CASEMGMT ---
SHARMILA received a phone call from Naomi Alicea with [facility]. Naomi asked if she and another individual from their company could come and talk with patient tomorrow to see if they feel he would be a good fit for their fdc. SHARMILA told Naomi that would be fine. SHARMILA will notify RN and rubber block layer. Bernarda Camejo MULTIMEDIA TECHNICIAN ANGELINE
[2023-05-11] MEDS: Ensure Plus High Protein 120 ML LIQUID PO ×2 (14:36→18:21)
--- NOTE | 2023-05-11 15:53 | CASEMGMT ---
SHARMILA still has not heard back from [facility]. SHARMILA called Esha in admissions and left her a voice mail requesting a return call. Bernarda Camejo MANAGER INTERNSHIP ANGELINE
--- NOTE | 2023-05-11 18:12 | PCM.PN.HOSP ---
Reason for Visit Reason for Visit: Diagnoses Sepsis, unspecified organism (05/07/23) Essential (primary) hypertension (05/07/23) Unspecified atrial fibrillation (05/07/23) Pneumonia, unspecified organism (05/07/23) Noninfective gastroenteritis and colitis, unspecified (05/07/23) Urinary tract infection, site not specified (05/07/23) Severe sepsis without septic shock (05/07/23) Severe sepsis with septic shock (05/07/23) Subjective Subjective Patient was seen and examined today, he is requiring Airvo to maintain his pulse ox above 90%, he was seen by cardiology today who recommended oral Lasix, patient remains on Unasyn, I obtained an x-ray on him today but as of the time of this dictation, the x-ray has not been formally read out. I examined the images and it appears patient has a left pleural effusion and infiltrate versus atelectasis at the left lung base. It appears there may be some changes in keeping with mild CHF. Objective Data Objective Data Vital Signs: Vital Signs Temp Pulse Resp BP Pulse Ox O2 Del Method O2 Flow Rate 97.9 F 128 H 18 109/73 92 Airvo 60 05/11/23 16:00 05/11/23 16:00 05/11/23 16:00 05/11/23 16:00 05/11/23 16:00 05/11/23 16:20 05/11/23 07:40 FiO2 80 05/11/23 07:40 Oxygen Flow Rate (L/min) 60 Oxygen Delivery Method Airvo Weight: 80.5 kg Body Mass Index (BMI) 26.9 Intake & Output: Intake and Output for Last 24 Hours 05/09/23 05/10/23 05/11/23 23:59 23:59 23:59 Intake Total 2782.72 / 2782.72 1634.48 / 1634.48 464 / 464 Output Total 900 / 900 1650 / 2000 950 / 950 Balance 1882.72 / 1882.72 -15.52 / -365.52 -486 / -486 Lab / Micro Data 05/11/23 05:35 05/11/23 05:35 Labs: Laboratory Results - last 24 hr 05/11/23 05:35: WBC 10.5, RBC 3.75 L, Hgb 10.7 L, Hct 33.5 L, MCV 89.3, MCH 28.5, MCHC 31.9 L, RDW Std Deviation 43.9, RDW Coeff of Leydi 13.4, Plt Count 223, MPV 11.4, Immature Gran % (Auto) 0.400, Neut % (Auto) 75.5 H, Lymph % (Auto) 7.8 L, Price % (Auto) 15.5 H, Eos % (Auto) 0.5, Baso % (Auto) 0.3, Absolute Neuts (auto) 7.9 H, Absolute Lymphs (auto) 0.82 L, Nucleated RBC % 0, Sodium 141, Potassium 3.5, Chloride 108 H, Carbon Dioxide 24.0, Anion Gap 9, BUN 16, Creatinine 1.01, Estim Creat Clear Calc 58.32, Est GFR (MDRD) Af Amer 92, Est GFR (MDRD) Non-Af 76, BUN/Creatinine Ratio 15.8, Glucose 86, Calcium 8.3 L Micro: Microbiology 05/11/23 14:10 Stool Stool Lactoferrin - Final 05/11/23 14:10 Stool Enteric Bacteriology - Final 05/11/23 14:10 Stool C. difficile DNA Amplification - Final 05/06/23 20:50 Blood Culture (Wb) - Anticubital Right Blood Culture - Preliminary No growth in 48 hours. 05/06/23 20:50 Blood Culture (Wb) - Anticubital Left Blood Culture - Preliminary No growth in 48 hours. 05/06/23 21:00 Urine, Catheterized Urine Culture - Final Enterococcus faecalis 05/07/23 08:00 Mucosa - Nasopharyngeal Respiratory Panel (PCR) - Final 05/07/23 00:55 Urine Catheter - Catheter Legionella Antigen - Final 05/07/23 00:55 Urine Catheter - Catheter Streptococcus pneumoniae Antigen (M - Final 05/06/23 20:55 Nasal Secretion SARS-CoV-2 & FLU Antigen (Rapid) - Final Radiography Diagnostic Testing: Radiology Impression Echocardiogram 05/10/23 17:49 Interpretation Summary The left ventricular ejection fraction is 30 %. Normal LV size. Mild (1+) eccentric mitral valve insufficiency. Moderate size left pleural effusion. There is moderate to severe global hypokinesis of the left ventricle. Pulmonary artery systolic pressure is 45 mmHg. Ordering Physician: Jonatan Montero Performed By: Anam Salguero RCS Physical Exam Const alert and no apparent distress Constitutional Narrative: Patient is mute and deaf General Appearance: well kempt and well developed Orientation / Consciousness: awake HEENT normocephalic, head/scalp atraumatic and moist oral mucous membranes Eyes PERRL, EOMs intact bilaterally and conjunctivae normal Neck supple, no JVD, thyroid normal and no carotid bruits General: trachea midline Resp normal respiratory effort and no retractions Resp Narrative: Breath sounds are diminished bilaterally Auscultation: Negative for rales, rhonchi or wheezes Cardio S1 normal heart sound, S2 normal heart sound, no murmurs, no rub and no gallops Cardio Narrative: Heart rate and rhythm is irregular GI normal to inspection, nondistended, normoactive bowel sounds, soft to palpation, non-tender and non-distended Extremity no clubbing, cyanosis or edema Skin no rashes or lesions noted General Skin Exam: no breakdown Neuro CN's II-XII intact bilaterally, moves all extremities, no focal motor deficits and no sensory deficits noted Sensorium / Orientation: awake and alert Psych Psych Narrative: Patient appears to become irritated when I attempted to examine him during his lunch Assessment & Plan Assessment/Plan (1) Severe sepsis: PLAN: Plan 1. Septic shock secondary to Enterococcus urinary tract infection-patient remains on Unasyn at this time, his white blood cell count today was 10.5 #2 hypoxic respiratory failure-patient is currently on Airvo at this time, the etiology of the patient's hypoxic respiratory failure is not clear at this time, it appears he may have an element of congestive heart failure, patient is now on amiodarone due to his atrial fibrillation and he is receiving oral Lasix. Patient's pulse ox will be monitored. Patient's CODE STATUS is a DNR comfort care only. #3 acute kidney injury-patient's creatinine today was 1.01 #4 A-fib with RVR-patient is being seen by cardiology, he is on amiodarone #5 cmo-[id number]-ascy II secondary to demand ischemia, cardiology seeing the patient, he is on metoprolol and atorvastatin #6 cognitive impairment-complicates care, clinical course, recovery, and prognosis #7 congenital deaf mute-complicates care, clinical course, recovery, and prognosis Total clinical time spent by myself addressing the patient's medical issues, reviewing all of his data, and collaborating with patient's care team: 35 minutes Charges/Coding Visit Charges Inpatient E&M: 85573 Subs Hosp L2
[2023-05-11] MEDS: Metoprolol Tartrate 50 MG Tablet PO (18:21)
[2023-05-11] MEDS: Furosemide 40 MG Tablet PO (18:21)
[2023-05-11] MEDS: Atorvastatin Calcium 20 MG Tablet PO (22:59)
[2023-05-12] VITALS (20 sets, daily range): BP systolic 103–138; BP diastolic 67–91; PULSE 95–144; RESP 14–22; TEMP 36.4–36.8; O2SAT 87–97
[2023-05-12] MEDS: Metoprolol Tartrate 5 MG/5 ML Vial 2.5 MG IV (00:51)
[2023-05-12] MEDS: 0.9% Saline Lock 10 ML Syringe IV ×2 (00:51→09:11)
[2023-05-12] MEDS: Acetaminophen 325 MG Tablet 650 MG PO (04:15)
[2023-05-12] MEDS: dilTIAZem 25 MG/5 ML Vial 10 MG IV BOLUS (04:15)
--- NOTE | 2023-05-12 04:15 | NURSING ---
DR BEARD NOTIFIED OF THE PTS [id number] POX 88-89 ON 90L AIRVO, PT REFUSING TO USE THE PEEP AND IS, WILL SLAM THEM DOWN ON THE BS TABLE, CARDIZEM 10MG IVP X1 GIVEN
[2023-05-12] MEDS: Ampicillin/Sulbactam 3 GM in 0.9% Normal Saline (100mL MB+) 100 ML IV ×3 (06:59→21:36)
--- NOTE | 2023-05-12 07:37 | CT_ITS ---
STUDY: CTA CHEST REASON FOR EXAM: Male, 77 years old. Hypoxemia RADIATION DOSAGE (If Supplied By Facility): CTDIvol = ( 13.58 ) mGy, DLP = ( 497.23 ) mGycm TECHNIQUE: The examination was performed with the intravenous administration of IV 100mL Isovue-370. Post-processing of the angiographic images was performed, with multiplanar reformation and 3D reconstruction. Individualized dose optimization techniques were used for this CT. COMPARISON: Comparison is made with prior study dated May 06, 2023. FINDINGS: Normal enhancement of the main pulmonary artery and right and left pulmonary arteries. Normal enhancement of the bilateral peripheral pulmonary arteries. There is no demonstrated pulmonary embolism. There is atherosclerotic calcification of the aortic arch with tortuosity. There is no demonstrated aortic dissection. There are calcifications of the coronary arteries. Normal mediastinum. Normal hilar regions. Normal visualized trachea and bronchi. The lungs are well expanded. Small bilateral pleural effusions left greater than right with the bibasilar consolidation worse at the left lung base. Normal pleura. Normal chest wall structures. There are degenerative changes of thoracic spine. Normal visualized upper abdomen. CT/CTA Chest W/WO Contrast IMPRESSION: Bilateral pleural effusions with bibasilar infiltration and/or atelectasis is worse at the left lung base. No evidence of pulmonary embolism. Electronically Signed: Glenroy Robles MD at 14:24 EDT ,
--- NOTE | 2023-05-12 08:18 | EX.PCM.CONCC ---
Assessment & Plan Assessment/Plan (1) Acute hypoxemic respiratory failure: PLAN: Plan RECOMMENDATIONS: 1. Continue heated high flow oxygen and wean FiO2 for saturations greater than 90%. 2. Continue antimicrobials to complete treatment course. 3. Recommend aggressive medical management of atrial fibrillation and volume status. 4. If the patient remains hypoxemic after his dysrhythmia and volume status has been addressed, recommend CTA chest to rule out PE. 5. CODE STATUS confirmed to be a DNR CCA without intubation. IMPRESSIONS: 1. Acute hypoxemic respiratory failure Clinical suspicion for underlying decompensated heart failure in the setting of atrial fibrillation with RVR, which is likely leading to flash pulmonary edema. Recommend aggressive management of his atrial fibrillation and volume status. Cardiology is currently following to assist with medical management. Continue heated high flow oxygen and wean FiO2 to maintain saturations at or above 90%. Although pneumonia seems less likely, the patient remains on antibiotics, which would address any potential aspiration concerns. If the patient remains significantly hypoxemic after he has been optimized from a cardiac perspective, I would next pursue a CTA chest to rule out PE. CODE STATUS documented on admission was incorrect. The patient is actually a DNR Comfort Care arrest without intubation. The patient is currently documented to be overall net +8 L for the hospitalization. I would certainly consider transitioning him from p.o. Lasix to IV route. If needed, BiPAP can be initiated to maintain appropriate saturations and provide ventilatory support. 2. NSTEMI/atrial fibrillation with RVR Defer medical management to cardiology. 3. Enterococcus UTI Continue antimicrobials as ordered to complete treatment course. 4. Baseline cognitive impairment/hypertension/hyperlipidemia Complicates care, management, recovery and prognosis. Continue supportive care as noted above. This note was generated with [employer] dictation software. It may contain incorrect words, spelling, and punctuation that were not noted in checking the note before signing. HPI Consult Data Date of Consult: 05/12/23 HPI Narrative Reason for Consultation: Acute hypoxemic respiratory failure HPI Narrative: The patient is a 77-year-old male, with a history as outlined below, who initially presented to the emergency department via EMS on May 06 with nausea, vomiting and diarrhea. The patient is currently deaf and mute at baseline, has baseline neurocognitive deficits. He currently resides at a half-way. The patient's medical history is also significant for a recent UTI, which was treated with Macrobid. In the emergency department, a discussion was undertaken with the patient's court-appointed guardian regarding goals of care/CODE STATUS. Paperwork was filled out and signed indicating that the patient was DNR comfort care. However, subsequent conversation between the patient's guardian and hospitalist indicated that the patient is actually DNR CCA without intubation. The patient was initially admitted to the hospital under the pretenses of severe sepsis secondary to UTI. He has also developed atrial fibrillation with RVR. The patient remains on Unasyn to cover for both the Enterococcus UTI and potential aspiration. Over the course of his hospitalization, the patient has remained persistently hypoxemic. Chest x-ray performed on May 11 was of poor quality and demonstrated evidence of atelectasis. However, the patient's atrial fibrillation is poorly controlled. This morning, the patient was noted to be in A-fib with a heart rate in the 160s/170s. Cardiology is currently following to assist with medical management. The patient is currently documented to be overall net +8 L for the hospitalization. He is not able to provide any additional information/details pertinent to his hospitalization. The patient is currently on amiodarone and metoprolol for his atrial fibrillation along with p.o. Lasix 40 mg twice daily. Surface echocardiogram demonstrated an ejection fraction of 30% with moderate to severe global hypokinesis of the LV, along with mild to moderate global RV systolic dysfunction and a pulmonary artery systolic pressure 45 mmHg. [facility] Home Medications amlodipine 10 mg tablet 10 mg PO DAILY 10/06/22 [History Last Taken Unknown] atorvastatin 20 mg tablet 20 mg PO DAILY 10/06/22 [History Last Taken Unknown] hydrochlorothiazide 12.5 mg capsule 12.5 mg PO DAILY 10/06/22 [History Last Taken Unknown] lisinopril 20 mg tablet 20 mg PO BID 10/06/22 [History Last Taken Unknown] atenolol 25 mg tablet 25 mg PO Q24H 05/06/23 [History Last Taken Unknown] cholecalciferol (vitamin D3) 50 mcg (2,000 unit) capsule (Vitamin D3) 2,000 unit PO DAILY 05/06/23 [History Last Taken Unknown] Allergy/AdvReac Type Severity Reaction Status Date / Time No Known Allergies Allergy Verified 05/06/23 20:26 Family History unable to obtain Surgical History unable to obtain Social History housing: other details: [facility] Smoking Status: Unknown if ever smoked ROS Review of Systems ROS Unobtainable: due to mental status Physical Exam Const alert and no apparent distress Constitutional Narrative: Currently in atrial fibrillation with a heart rate in the 160s/170s. HEENT normocephalic and head/scalp atraumatic Eyes PERRL and EOMs intact bilaterally Neck supple General: trachea midline Chest inspection of chest normal Resp normal respiratory effort Resp Narrative: Poor inspiratory effort Auscultation: diminished lung sounds Cardio S1 normal heart sound and S2 normal heart sound Rate: tachycardic Rhythm: abnormal rhythm GI normal to inspection, nondistended, normoactive bowel sounds Extremity no clubbing, cyanosis or edema Skin no rashes or lesions noted Neuro CN's II-XII intact bilaterally and no focal motor deficits Psych Mood & Affect: flat affect Lab / Micro Data 05/11/23 05:35 05/11/23 05:35 Micro: Microbiology 05/06/23 20:50 Blood Culture (Wb) - Anticubital Right Blood Culture - Final No growth in 5 days. 05/06/23 20:50 Blood Culture (Wb) - Anticubital Left Blood Culture - Final No growth in 5 days. 05/11/23 14:10 Stool Stool Lactoferrin - Final 05/11/23 14:10 Stool Enteric Bacteriology - Final 05/11/23 14:10 Stool C. difficile DNA Amplification - Final Radiology Impression Echocardiogram 05/10/23 17:49 Interpretation Summary The left ventricular ejection fraction is 30 %. Normal LV size. Mild (1+) eccentric mitral valve insufficiency. Moderate size left pleural effusion. There is moderate to severe global hypokinesis of the left ventricle. Pulmonary artery systolic pressure is 45 mmHg. Ordering Physician: Jonatan Montero Performed By: Anam Salguero RCS Chest X-Ray 05/11/23 12:37 IMPRESSION: Increasing left lower lobe consolidation with possible small pleural effusion. Electronically Signed: Daniel Mera MD at 18:50 EDT , Charges/Coding Visit Charges Inpatient E&M: 66359 Init Hosp L3
[2023-05-12] MEDS: Metoprolol Tartrate 25 MG Tablet 75 MG PO (09:10)
[2023-05-12] MEDS: Digoxin 250 MCG/ML Ampul 500 MCG IV (09:11)
[2023-05-12] MEDS: Amiodarone 200 MG Tablet PO ×2 (09:12→21:37)
[2023-05-12] MEDS: Heparin Injection (Vial) 5,000 UNIT/ML VIAL 5000 UNIT SC ×2 (09:12→21:37)
[2023-05-12] MEDS: Cholecalciferol (VIT D3) 25 MCG TABLET (1,000 UNITS) 50 MCG PO (09:13)
[2023-05-12] MEDS: Furosemide 40 MG Tablet PO ×2 (11:35→19:14)
--- NOTE | 2023-05-12 12:56 | CASEMGMT ---
Addendum entered by Bernarda Camejo 05/12/23 14:05: Venus called SHARMILA back and said the facility would like her to do an onsite at [facility]. SHARMILA told Venus that is fine. Bernarda MARCUS Original Note: SHARMILA called [facility] admissions cell number and spoke with Venus. SHARMILA asked about taking patient if he can share a bathroom. Venus said she will check with the sales consulting director and call SHARMILA back. Bernarda MARCUS
--- NOTE | 2023-05-12 15:32 | CASEMGMT ---
[facility] said they can take patient. However, if patient is going to be [place] [facility] they ask that a PASRR be completed. Patient will require approval from the Board of DD before he could leave the hospital and go to the group home. This could take up to a week. Another longterm did come today to see if patient would be a good fit for their home. SHARMILA called patient's Board of [employer] Insurance Executive Alley. Alley is not sure what to do at the moment. SHARMILA explained patient is not medically ready and may not be for a few more days. SHARMILA also explained that patient has not been able to have therapy so we may need to wait and see how he does which will help with the appropriate d/c plan. Bernarda Camejo FUNERAL SERVICE APPRENTICE ANGELINE
[2023-05-12] MEDS: Digoxin 250 MCG/ML Ampul IV (15:33)
[2023-05-12] MEDS: Metoprolol Tartrate 25 MG Tablet PO (15:36)
--- NOTE | 2023-05-12 16:33 | PN.HOSP_ITS ---
Reason for Visit Reason for Visit: Diagnoses Sepsis, unspecified organism (05/07/23) Essential (primary) hypertension (05/07/23) Unspecified atrial fibrillation (05/07/23) Pneumonia, unspecified organism (05/07/23) Acute respiratory failure with hypoxia (05/07/23) Noninfective gastroenteritis and colitis, unspecified (05/07/23) Urinary tract infection, site not specified (05/07/23) Severe sepsis without septic shock (05/07/23) Severe sepsis with septic shock (05/07/23) Subjective Subjective Patient was seen and examined today, he remains on high flow oxygen at this time, I had pulmonary medicine see the patient today and his CODE STATUS was clarified by myself and the patient's POA, she wanted the patient to be a DNR CC arrest without intubation, this status was changed, a CTA of the chest was recommended however the patient would not tolerate laying flat because of behavioral issues and his oxygenation and so this test was not carried out. Pulmonary medicine felt that the patient's chest x-ray was of poor quality yesterday. Patient's heart rate was approximately 130-140 this morning, I talked with cardiology and the patient was placed on digoxin and I increased his beta- alba. Objective Data Objective Data Vital Signs: Vital Signs Temp Pulse Resp BP Pulse Ox O2 Del Method O2 Flow Rate 97.7 F L 112 H 20 H 118/70 92 High Flow 70 05/12/23 14:00 05/12/23 15:36 05/12/23 14:04 05/12/23 15:33 05/12/23 14:04 05/12/23 14:00 05/12/23 08:00 FiO2 78 05/12/23 14:04 Oxygen Flow Rate (L/min) 70 Oxygen Delivery Method High Flow Weight: 80.5 kg Body Mass Index (BMI) 26.9 Intake & Output: Intake and Output for Last 24 Hours 05/10/23 05/11/23 05/12/23 23:59 23:59 23:59 Intake Total 1634.48 / 1634.48 916 / 916 112 / 112 Output Total 1650 / 1999 2250 / 2250 200 / 200 Balance -15.52 / -365.52 -1334 / -1334 -88 / -88 Lab / Micro Data 05/11/23 05:35 05/11/23 05:35 Micro: Microbiology 05/06/23 20:50 Blood Culture (Wb) - Anticubital Right Blood Culture - Final No growth in 5 days. 05/06/23 20:50 Blood Culture (Wb) - Anticubital Left Blood Culture - Final No growth in 5 days. 05/11/23 14:10 Stool Stool Lactoferrin - Final 05/11/23 14:10 Stool Enteric Bacteriology - Final 05/11/23 14:10 Stool C. difficile DNA Amplification - Final 05/06/23 21:00 Urine, Catheterized Urine Culture - Final Enterococcus faecalis 05/07/23 08:00 Mucosa - Nasopharyngeal Respiratory Panel (PCR) - Final 05/07/23 00:55 Urine Catheter - Catheter Legionella Antigen - Final 05/07/23 00:55 Urine Catheter - Catheter Streptococcus pneumoniae Antigen (M - Final 05/06/23 20:55 Nasal Secretion SARS-CoV-2 & FLU Antigen (Rapid) - Final Radiography Diagnostic Testing: Radiology Impression Chest X-Ray 05/11/23 12:37 IMPRESSION: Increasing left lower lobe consolidation with possible small pleural effusion. Electronically Signed: Daniel Mera MD at 18:50 EDT , Chest CTA 05/12/23 07:37 IMPRESSION: Bilateral pleural effusions with bibasilar infiltration and/or atelectasis is worse at the left lung base. No evidence of pulmonary embolism. Electronically Signed: Glenroy Robles MD at 14:24 EDT , Physical Exam Narrative alert and no apparent distress Constitutional Narrative: Patient is mute and deaf General Appearance: well kempt and well developed Orientation / Consciousness: awake HEENT normocephalic, head/scalp atraumatic and moist oral mucous membranes Eyes PERRL, EOMs intact bilaterally and conjunctivae normal Neck supple, no JVD, thyroid normal and no carotid bruits General: trachea midline Resp normal respiratory effort and no retractions Resp Narrative: Breath sounds are diminished bilaterally Auscultation: Negative for rales, rhonchi or wheezes Cardio S1 normal heart sound, S2 normal heart sound, no murmurs, no rub and no gallops Cardio Narrative: Heart rate and rhythm is irregular GI normal to inspection, nondistended, normoactive bowel sounds, soft to palpation, non-tender and non-distended Extremity no clubbing, cyanosis or edema Skin no rashes or lesions noted General Skin Exam: no breakdown Neuro CN's II-XII intact bilaterally, moves all extremities, no focal motor deficits and no sensory deficits noted Sensorium / Orientation: awake and alert Psych Psych Narrative: Patient appears to become irritated when I attempted to examine him during his lunch Assessment & Plan Assessment/Plan (1) Acute hypoxemic respiratory failure: (2) Severe sepsis: PLAN: Plan 1. Septic shock secondary to Enterococcus urinary tract infection-patient remains on Unasyn at this time #2 hypoxic respiratory failure-patient is currently on Airvo at this time, the etiology of the patient's hypoxic respiratory failure is not clear at this time, it appears he may have an element of systolic congestive heart failure, patient is now on amiodarone due to his atrial fibrillation and he is receiving oral Lasix. Patient's pulse ox will be monitored. Patient is being seen by cardiology, I also had pulmonary medicine see the patient for further input. #3 acute kidney injury-resolved, BMP will be repeated tomorrow as well as a CBC #4 A-fib with RVR-patient is being seen by cardiology, he is on amiodarone, beta-alba, and now on digoxin. #5 [id number] II secondary to demand ischemia, cardiology seeing the patient, he is on metoprolol and atorvastatin #6 cognitive impairment-complicates care, clinical course, recovery, and prognosis #7 congenital deaf mute-complicates care, clinical course, recovery, and progn osis Again patient's CODE STATUS was confirmed to be a DNR CC arrest without intubation. Total clinical time spent by myself addressing the patient's medical issues, reviewing all of his data, and collaborating with patient's care team: 35 minutes Charges/Coding Visit Charges Inpatient E&M: 35880 Subs Hosp L2
[2023-05-12] MEDS: Metoprolol Tartrate 100 MG Tablet PO (21:37)
[2023-05-12] MEDS: Atorvastatin Calcium 20 MG Tablet PO (21:37)
[2023-05-12] MEDS: Albuterol 2.5 MG/3 ML VIAL.NEB. INHALATION (23:50)
[2023-05-13] VITALS (12 sets, daily range): BP systolic 114–135; BP diastolic 58–85; PULSE 71–118; RESP 14–25; TEMP 36.4–37; O2SAT 90–98
[2023-05-13] MEDS: Ampicillin/Sulbactam 3 GM in 0.9% Normal Saline (100mL MB+) 100 ML IV ×3 (05:18→21:40)
--- NOTE | 2023-05-13 08:14 | PCM.PN.INT ---
Assessment & Plan Assessment/Plan (1) Acute hypoxemic respiratory failure: PLAN: Plan RECOMMENDATIONS: 1. Continue heated high flow oxygen and wean FiO2 for saturations greater than 90%. 2. Continue antimicrobials to complete 7-day treatment course. 3. Recommend aggressive medical management of atrial fibrillation and volume status. 4. Consider transitioning from p.o. to IV Lasix. IMPRESSIONS: 1. Acute hypoxemic respiratory failure Clinical suspicion for underlying decompensated heart failure in the setting of atrial fibrillation with RVR, which is likely leading to flash pulmonary edema. Recommend aggressive management of his atrial fibrillation and volume status. Cardiology is currently following to assist with medical management. Continue heated high flow oxygen and wean FiO2 to maintain saturations at or above 90%. Although pneumonia seems less likely, the patient remains on antibiotics, which would address any potential aspiration concerns. CTA chest showed no evidence for pulmonary embolism. The patient remains overall net positive from a volume perspective for the hospitalization. Therefore, I would recommend transitioning from p.o. to IV Lasix. 2. NSTEMI/atrial fibrillation with RVR Defer medical management to cardiology. 3. Enterococcus UTI Continue antimicrobials as ordered to complete treatment course. 4. Baseline cognitive impairment/hypertension/hyperlipidemia Complicates care, management, recovery and prognosis. Continue supportive care as noted above. CODE STATUS: DNR CCA without intubation This note was generated with [employer] dictation software. It may contain incorrect words, spelling, and punctuation that were not noted in checking the note before signing. Subjective Subjective The patient was seen and examined at the bedside this morning. Events from the last 24 hours have been reviewed. The patient is currently afebrile, hemodynamically stable and maintaining appropriate oxygen saturations on heated high flow oxygen with an FiO2 requirement of 79%. The patient's heart rate is under better control today. CTA chest completed yesterday demonstrated no evidence for pulmonary embolism. The patient is currently documented to be overall net +7.5 L for the hospitalization. Objective Data Objective Data The patient's most recent lab work, culture data and imaging studies have all been personally reviewed. Surface echocardiogram demonstrated an ejection fraction of 30% with moderate to severe global hypokinesis of the LV, along with mild to moderate global RV systolic dysfunction and a pulmonary artery systolic pressure 45 mmHg. Vital Signs: Vital Signs Temp Pulse Resp BP Pulse Ox O2 Del Method O2 Flow Rate 98.0 F 104 H 16 120/58 L 97 Airvo 70 10/05/23 02:00 05/13/23 02:00 05/13/23 02:00 05/13/23 02:00 05/13/23 02:00 05/13/23 04:00 05/12/23 20:00 FiO2 79 05/13/23 01:15 Oxygen Flow Rate (L/min) 70 Oxygen Delivery Method Airvo Weight: 177 lb 7.554 oz Body Mass Index (BMI) 26.9 Intake & Output: Intake and Output for Last 24 Hours 05/11/23 05/12/23 05/13/23 23:59 23:59 23:59 Intake Total 916 / 916 436 / 436 112 / 112 Output Total 2250 / 2250 600 / 800 600 / 600 Balance -1334 / -1334 -164 / -364 -488 / -488 Lab / Micro Data Attestation: I reviewed the patient's lab results. 05/11/23 05:35 05/11/23 05:35 Micro: Microbiology 05/06/23 20:50 Blood Culture (Wb) - Anticubital Right Blood Culture - Final No growth in 5 days. 05/06/23 20:50 Blood Culture (Wb) - Anticubital Left Blood Culture - Final No growth in 5 days. 05/11/23 14:10 Stool Stool Lactoferrin - Final 05/11/23 14:10 Stool Enteric Bacteriology - Final 05/11/23 14:10 Stool C. difficile DNA Amplification - Final 05/06/23 21:00 Urine, Catheterized Urine Culture - Final Enterococcus faecalis 05/07/23 08:00 Mucosa - Nasopharyngeal Respiratory Panel (PCR) - Final 05/07/23 00:55 Urine Catheter - Catheter Legionella Antigen - Final 05/07/23 00:55 Urine Catheter - Catheter Streptococcus pneumoniae Antigen (M - Final 05/06/23 20:55 Nasal Secretion SARS-CoV-2 & FLU Antigen (Rapid) - Final Radiography Diagnostic Testing: Radiology Impression Chest CTA 05/12/23 07:37 IMPRESSION: Bilateral pleural effusions with bibasilar infiltration and/or atelectasis is worse at the left lung base. No evidence of pulmonary embolism. Electronically Signed: Glenroy Robles MD at 14:24 EDT , Physical Exam Const alert and no apparent distress General Appearance: cooperative HEENT normocephalic and head/scalp atraumatic Eyes PERRL and EOMs intact bilaterally Neck supple General: trachea midline Chest inspection of chest normal Resp normal respiratory effort Resp Narrative: Poor inspiratory effort Auscultation: diminished lung sounds Cardio S1 normal heart sound and S2 normal heart sound Rate: tachycardic Rhythm: abnormal rhythm GI normal to inspection, nondistended, normoactive bowel sounds Extremity no clubbing, cyanosis or edema Skin no rashes or lesions noted Neuro CN's II-XII intact bilaterally and no focal motor deficits Psych Mood & Affect: flat affect Charges/Coding Visit Charges Inpatient E&M: 77672 Subs Hosp L2
[2023-05-13] MEDS: Furosemide 20 MG/2 ML VIAL IV ×3 (08:32→21:38)
[2023-05-13] MEDS: 0.9% Saline Lock 10 ML Syringe IV ×3 (08:32→21:45)
[2023-05-13] MEDS: Metoprolol Tartrate 100 MG Tablet PO ×2 (08:33→21:44)
[2023-05-13] MEDS: Cholecalciferol (VIT D3) 25 MCG TABLET (1,000 UNITS) 50 MCG PO (08:33)
[2023-05-13] MEDS: Digoxin 125 MCG Tablet PO (08:33)
[2023-05-13] MEDS: Heparin Injection (Vial) 5,000 UNIT/ML VIAL 5000 UNIT SC ×2 (08:33→21:39)
[2023-05-13] MEDS: Amiodarone 200 MG Tablet PO ×2 (08:33→21:43)
--- NOTE | 2023-05-13 11:25 | CASEMGMT ---
SW submitted PASRR for patient via [employer] system. Patient does require further review. Bernarda MARCUS
[2023-05-13 14:09] LABS: Giardia Lamblia, Stool EIA Negative (Negative)
--- NOTE | 2023-05-13 18:32 | PCM.PN.HOSP ---
Reason for Visit Reason for Visit: Diagnoses Sepsis, unspecified organism (05/07/23) Essential (primary) hypertension (05/07/23) Unspecified atrial fibrillation (05/07/23) Pneumonia, unspecified organism (05/07/23) Acute respiratory failure with hypoxia (05/07/23) Noninfective gastroenteritis and colitis, unspecified (05/07/23) Urinary tract infection, site not specified (05/07/23) Severe sepsis without septic shock (05/07/23) Severe sepsis with septic shock (05/07/23) Subjective Subjective Patient was seen and examined today, he does not appear to be in any respiratory distress at rest in bed patient had a CTA of his chest performed which did not show evidence of pulmonary embolism. I talked briefly with pulmonary medicine about his care and they recommended continuing diuresis, I have decided to place the patient on IV Lasix and stop his oral Lasix. Patient's heart rate is improved today, he still remains in atrial fib. Patient is still on Airvo. Objective Data Objective Data Vital Signs: Vital Signs Temp Pulse Resp BP Pulse Ox O2 Del Method O2 Flow Rate 97.6 F L 99 20 H 114/63 98 Airvo 50 05/13/23 14:48 05/13/23 14:48 05/13/23 14:48 05/13/23 14:48 05/13/23 14:47 05/13/23 14:48 05/13/23 14:47 FiO2 68 05/13/23 14:47 Oxygen Flow Rate (L/min) 50 Oxygen Delivery Method Airvo Weight: 80.5 kg Body Mass Index (BMI) 26.9 Intake & Output: Intake and Output for Last 24 Hours 05/11/23 05/12/23 05/13/23 23:59 23:59 23:59 Intake Total 916 / 916 436 / 436 944 / 944 Output Total 2250 / 2250 600 / 800 4400 / 4400 Balance -1334 / -1334 -164 / -364 -3456 / -3456 Lab / Micro Data 05/11/23 05:35 05/11/23 05:35 Labs: Laboratory Results - last 24 hr 05/07/23 14:10: Stl Giardia Antigen Negative Micro: Microbiology 05/06/23 20:50 Blood Culture (Wb) - Anticubital Right Blood Culture - Final No growth in 5 days. 05/06/23 20:50 Blood Culture (Wb) - Anticubital Left Blood Culture - Final No growth in 5 days. 05/11/23 14:10 Stool Stool Lactoferrin - Final 05/11/23 14:10 Stool Enteric Bacteriology - Final 05/11/23 14:10 Stool C. difficile DNA Amplification - Final 05/06/23 21:00 Urine, Catheterized Urine Culture - Final Enterococcus faecalis 05/07/23 08:00 Mucosa - Nasopharyngeal Respiratory Panel (PCR) - Final 05/07/23 00:55 Urine Catheter - Catheter Legionella Antigen - Final 05/07/23 00:55 Urine Catheter - Catheter Streptococcus pneumoniae Antigen (M - Final 05/06/23 20:55 Nasal Secretion SARS-CoV-2 & FLU Antigen (Rapid) - Final Physical Exam Narrative alert and no apparent distress Constitutional Narrative: Patient is mute and deaf General Appearance: well kempt and well developed Orientation / Consciousness: awake HEENT normocephalic, head/scalp atraumatic and moist oral mucous membranes Eyes PERRL, EOMs intact bilaterally and conjunctivae normal Neck supple, no JVD, thyroid normal and no carotid bruits General: trachea midline Resp normal respiratory effort and no retractions Resp Narrative: Breath sounds are diminished bilaterally Auscultation: Negative for rales, rhonchi or wheezes Cardio S1 normal heart sound, S2 normal heart sound, no murmurs, no rub and no gallops Cardio Narrative: Heart rate and rhythm is irregular GI normal to inspection, nondistended, normoactive bowel sounds, soft to palpation, non-tender and non-distended Extremity no clubbing, cyanosis or edema Skin no rashes or lesions noted General Skin Exam: no breakdown Neuro CN's II-XII intact bilaterally, moves all extremities, no focal motor deficits and no sensory deficits noted Sensorium / Orientation: awake and alert Psych Psych Narrative: Patient appears to become irritated when I attempted to examine him during his lunch Assessment & Plan Assessment/Plan (1) Acute hypoxemic respiratory failure: (2) Severe sepsis: PLAN: Plan 1. Septic shock secondary to Enterococcus urinary tract infection-patient remains on Unasyn at this time #2 hypoxic respiratory failure-patient is currently on Airvo at this time, the etiology of the patient's hypoxic respiratory failure is not clear at this time, it appears he may have an element of systolic congestive heart failure, patient is now on amiodarone due to his atrial fibrillation and he is receiving oral Lasix. Patient's pulse ox will be monitored. Patient is being seen by cardiology, I also had pulmonary medicine see the patient for further input. #3 acute kidney injury-resolved, BMP will be repeated tomorrow as well as a CBC #4 A-fib with RVR-patient is being seen by cardiology, he is on amiodarone, beta-alba, and now on digoxin. #5 [id number] II secondary to demand ischemia, cardiology seeing the patient, he is on metoprolol and atorvastatin #6 cognitive impairment-complicates care, clinical course, recovery, and prognosis #7 congenital deaf mute-complicates care, clinical course, recovery, and prognosis #8 acute systolic CHF-continue IV Lasix, metoprolol, and I have decided to add a small amount of an SCOTT inhibitor. Again patient's CODE STATUS was confirmed to be a DNR CC arrest without intubation. Total clinical time spent by myself addressing the patient's medical issues, reviewing all of his data, and collaborating with patient's care team: 35 minutes Charges/Coding Visit Charges Inpatient E&M: 63961 Subs Hosp L2
[2023-05-13] MEDS: Lisinopril 2.5 MG Tablet PO (21:43)
[2023-05-13] MEDS: Ensure Plus High Protein 120 ML LIQUID PO (21:43)
[2023-05-13] MEDS: Atorvastatin Calcium 20 MG Tablet PO (21:44)
[2023-05-14] VITALS (17 sets, daily range): BP systolic 106–134; BP diastolic 65–93; PULSE 85–114; RESP 14–50; TEMP 36.2–37; O2SAT 92–99
[2023-05-14] MEDS: Furosemide 20 MG/2 ML VIAL IV ×3 (05:34→22:30)
[2023-05-14] MEDS: Ampicillin/Sulbactam 3 GM in 0.9% Normal Saline (100mL MB+) 100 ML IV (05:40)
--- NOTE | 2023-05-14 07:15 | CPS ---
Changed water bag on Airvo.
[2023-05-14] MEDS: Ondansetron 4 MG/2 ML Vial IV (08:40)
[2023-05-14] MEDS: 0.9% Saline Lock 10 ML Syringe IV ×2 (08:40→13:53)
[2023-05-14] MEDS: Ensure Plus High Protein 120 ML LIQUID PO (10:13)
[2023-05-14] MEDS: Digoxin 125 MCG Tablet PO (10:14)
[2023-05-14] MEDS: Amiodarone 200 MG Tablet PO ×2 (10:15→22:32)
[2023-05-14] MEDS: Lisinopril 2.5 MG Tablet PO (10:15)
[2023-05-14] MEDS: Heparin Injection (Vial) 5,000 UNIT/ML VIAL 5000 UNIT SC ×2 (10:15→22:30)
[2023-05-14] MEDS: Cholecalciferol (VIT D3) 25 MCG TABLET (1,000 UNITS) 50 MCG PO (10:15)
[2023-05-14] MEDS: Metoprolol Tartrate 100 MG Tablet PO ×2 (10:15→22:32)
--- NOTE | 2023-05-14 11:34 | CASEMGMT ---
SHARMILA received a message from Crystal Hastings at Board of regarding patient's level II review. SHARMILA called Crystal back and left her a message. Bernarda Camejo MSW ANGELINE
--- NOTE | 2023-05-14 13:08 | CASEMGMT ---
SHARMILA spoke with Crystal at [employer] of [employer]. SHARMILA explained patient's admission and shelter situation etc. Crystal said she will not be able to get to this review today. Crystal will follow up with SHARMILA Wednesday. Bernarda MARCUS
--- NOTE | 2023-05-14 15:01 | CASEMGMT ---
SHARMILA called patient's Border Patrol Agent, Alley (cell-[phone]) and left her a voice mail letting her know [facility] can take patient. However, patient is still on a lot of O2 so he is not medically ready. Bernarda Camejo BAGMAN/WOMAN ANGELINE
--- NOTE | 2023-05-14 17:06 | PN.HOSP_ITS ---
Reason for Visit Reason for Visit: Diagnoses Sepsis, unspecified organism (05/07/23) Essential (primary) hypertension (05/07/23) Unspecified atrial fibrillation (05/07/23) Pneumonia, unspecified organism (05/07/23) Acute respiratory failure with hypoxia (05/07/23) Noninfective gastroenteritis and colitis, unspecified (05/07/23) Urinary tract infection, site not specified (05/07/23) Severe sepsis without septic shock (05/07/23) Severe sepsis with septic shock (05/07/23) Subjective Subjective Patient was seen and examined today, he still remains on Airvo at this time, he does not appear to be in any distress at rest. Objective Data Objective Data Vital Signs: Vital Signs Temp Pulse Resp BP Pulse Ox O2 Del Method O2 Flow Rate 97.4 F L 95 18 106/78 95 Airvo 50 05/14/23 16:30 05/14/23 16:30 05/14/23 16:30 05/14/23 16:30 05/14/23 16:30 05/14/23 16:30 05/14/23 16:30 FiO2 49 05/14/23 16:30 Oxygen Flow Rate (L/min) 50 Oxygen Delivery Method Airvo Weight: 80.5 kg Body Mass Index (BMI) 26.9 Intake & Output: Intake and Output for Last 24 Hours 05/12/23 05/13/23 05/14/23 23:59 23:59 23:59 Intake Total 436 / 436 1056 / 1181 667 / 667 Output Total 600 / 800 4400 / 5150 1755 / 1755 Balance -164 / -364 -3344 / -3969 -1088 / -1088 Lab / Micro Data 05/11/23 05:35 05/11/23 05:35 Micro: Microbiology 05/06/23 20:50 Blood Culture (Wb) - Anticubital Right Blood Culture - Final No growth in 5 days. 05/06/23 20:50 Blood Culture (Wb) - Anticubital Left Blood Culture - Final No growth in 5 days. 05/11/23 14:10 Stool Stool Lactoferrin - Final 05/11/23 14:10 Stool Enteric Bacteriology - Final 05/11/23 14:10 Stool C. difficile DNA Amplification - Final 05/06/23 21:00 Urine, Catheterized Urine Culture - Final Enterococcus faecalis 05/07/23 08:00 Mucosa - Nasopharyngeal Respiratory Panel (PCR) - Final 05/07/23 00:55 Urine Catheter - Catheter Legionella Antigen - Final 05/07/23 00:55 Urine Catheter - Catheter Streptococcus pneumoniae Antigen (M - Final 05/06/23 20:55 Nasal Secretion SARS-CoV-2 & FLU Antigen (Rapid) - Final Physical Exam Narrative alert and no apparent distress Constitutional Narrative: Patient is mute and deaf General Appearance: well kempt and well developed Orientation / Consciousness: awake HEENT normocephalic, head/scalp atraumatic and moist oral mucous membranes Eyes PERRL, EOMs intact bilaterally and conjunctivae normal Neck supple, no JVD, thyroid normal and no carotid bruits General: trachea midline Resp normal respiratory effort and no retractions Resp Narrative: Breath sounds are diminished bilaterally Auscultation: Negative for rales, rhonchi or wheezes Cardio S1 normal heart sound, S2 normal heart sound, no murmurs, no rub and no gallops Cardio Narrative: Heart rate and rhythm is irregular GI normal to inspection, nondistended, normoactive bowel sounds, soft to palpation, non-tender and non-distended Extremity no clubbing, cyanosis or edema Skin no rashes or lesions noted General Skin Exam: no breakdown Neuro CN's II-XII intact bilaterally, moves all extremities, no focal motor deficits and no sensory deficits noted Sensorium / Orientation: awake and alert Psych Psych Narrative: Patient appears calm Assessment & Plan Assessment/Plan (1) Acute hypoxemic respiratory failure: (2) Severe sepsis: PLAN: Plan 1. Septic shock secondary to Enterococcus urinary tract infection-patient has completed his course of IV Unasyn at this time, I will stop this medication and observe him #2 hypoxic respiratory failure-patient is currently on Airvo at this time, the etiology of the patient's hypoxic respiratory failure is not clear at this time, it appears he may have an element of systolic congestive heart failure, patient is now on amiodarone due to his atrial fibrillation and he is receiving oral Lasix. Patient's pulse ox will be monitored. Patient remains on IV Lasix #3 acute kidney injury-resolved, BMP will be repeated tomorrow as well as a CBC #4 A-fib with RVR-patient is being seen by cardiology, he is on amiodarone, beta-alba, and now on digoxin. #5 [id number] II secondary to demand ischemia, cardiology seeing the patient, he is on metoprolol and atorvastatin #6 cognitive impairment-complicates care, clinical course, recovery, and prognosis #7 congenital deaf mute-complicates care, clinical course, recovery, and prognosis #8 acute systolic CHF-continue IV Lasix, metoprolol, and I have decided to add a small amount of an SCOTT inhibitor. Again patient's CODE STATUS was confirmed to be a DNR CC arrest without intubation. Total clinical time spent by myself addressing the patient's medical issues, reviewing all of his data, and collaborating with patient's care team: 25 minute s Charges/Coding Visit Charges Inpatient E&M: 73647 Subs Hosp L1
[2023-05-14] MEDS: Atorvastatin Calcium 20 MG Tablet PO (22:31)
[2023-05-15] VITALS (24 sets, daily range): BP systolic 109–144; BP diastolic 58–86; PULSE 81–109; RESP 14–50; TEMP 36.3–36.7; O2SAT 75–98
[2023-05-15] MEDS: Furosemide 20 MG/2 ML VIAL IV (05:21)
--- NOTE | 2023-05-15 08:16 | CPS ---
Pt was decreased on Airvo from 76% to 72%. Saturation 94%
[2023-05-15 08:27] LABS: Anion Gap 9 (5-15); BUN 23 mg/dL (7-18); BUN/Creat Ratio 19.2 RATIO (10-20); Calcium,Total 8.5 mg/dL (8.5-10.1); Chloride 89 mmol/L (98-107); EST Glomerular Filtration Rate 62 mL/min (>60); Est Glom Filt Rate - Afr Amer 75 mL/min (>60); Estimated Creatinine Clearance 49.08 ml/min; Glucose 86 mg/dL (74-106); Sodium Level 137 mmol/L (136-145)
[2023-05-15] MEDS: Lisinopril 2.5 MG Tablet PO (09:05)
[2023-05-15] MEDS: Cholecalciferol (VIT D3) 25 MCG TABLET (1,000 UNITS) 50 MCG PO (09:06)
[2023-05-15] MEDS: Metoprolol Tartrate 100 MG Tablet PO ×2 (09:06→21:43)
[2023-05-15] MEDS: Amiodarone 200 MG Tablet PO ×2 (09:06→21:43)
[2023-05-15] MEDS: Heparin Injection (Vial) 5,000 UNIT/ML VIAL 5000 UNIT SC (09:06)
[2023-05-15] MEDS: Digoxin 125 MCG Tablet PO (09:06)
[2023-05-15] MEDS: Sodium Chloride 0.65% 1 SPRAY SPRAY.BTL 2 SPRAY NASAL (09:07)
[2023-05-15] MEDS: Acetaminophen 325 MG Tablet 650 MG PO (09:11)
[2023-05-15] MEDS: Ensure Plus High Protein 120 ML LIQUID PO ×2 (09:15→17:27)
--- NOTE | 2023-05-15 10:05 | PCM.PN.CARD ---
Subjective Subjective Patient seen and evaluated. Objective Data Vital Signs: Vital Signs Temp Pulse Resp BP Pulse Ox O2 Del Method O2 Flow Rate 97.4 F L 108 H 22 H 144/86 H 96 Airvo 50 05/15/23 09:00 05/15/23 09:06 05/15/23 09:00 05/15/23 09:06 05/15/23 09:00 05/15/23 09:00 05/15/23 09:00 FiO2 71 05/15/23 09:00 Oxygen Flow Rate (L/min) 50 Oxygen Delivery Method Airvo Weight: 177 lb 7.554 oz Body Mass Index (BMI) 26.9 Intake & Output: Intake and Output for Last 24 Hours 05/13/23 05/14/23 05/15/23 23:59 23:59 23:59 Intake Total 1056 / 1181 1147 / 1257 110 / 110 Output Total 4400 / 5150 1955 / 2105 150 / 150 Balance -3344 / -3969 -808 / -848 -40 / -40 Lab / Micro Data 05/11/23 05:35 05/15/23 07:57 Labs: Laboratory Results - last 24 hr 05/15/23 07:57: Sodium 137, Potassium 3.0 L, Chloride 89 L, Carbon Dioxide 39.0 H, Anion Gap 9, BUN 23 H, Creatinine 1.20, Estim Creat Clear Calc 49.08, Est GFR (MDRD) Af Amer 75, Est GFR (MDRD) Non-Af 62, BUN/Creatinine Ratio 19.2, Glucose 86, Calcium 8.5 Cardiology Labs/Tests 05/15/23 07:57: Sodium 137, Potassium 3.0 L, Chloride 89 L, Carbon Dioxide 39.0 H, Anion Gap 9, BUN 23 H, Creatinine 1.20, Est GFR (MDRD) Af Amer 75, Est GFR (MDRD) Non-Af 62, BUN/Creatinine Ratio 19.2, Glucose 86, Calcium 8.5 Rhythm: EKG: ECHO: Stress Test: Cardiac Cath: PCI: CT Surgery: Holter monitor: EPS: PPM: CXR: Chest CT Scan: Physical Exam Const alert, oriented x3 and no apparent distress General Appearance: cooperative HEENT hearing grossly normal bilaterally Head and Scalp: atraumatic Eyes EOMs intact bilaterally Neck General: normal visual inspection Chest inspection of chest normal and palpation of chest normal Resp normal respiratory effort Auscultation: clear to auscultation bilaterally Cardio regular rate, regular rhythm, S1 normal heart sound and S2 normal heart sound Jugular Venous Distention: JVD GI normal to inspection, nondistended, normoactive bowel sounds Extremity normal capillary refill and no pedal edema Peripheral Pulses: Yes pulses 2+ throughout and femoral pulses present Skin no rashes or lesions noted Neuro oriented x3 and CN's II-XII intact bilaterally Psych Appearance: grossly normal and appropriate Assessment & Plan Assessment/Plan (1) Atrial fibrillation: PLAN: He is in atrial fibrillation with an uncontrolled ventricular response rate. At this time my recommendation will be to continue oral amiodarone 200 mg twice a day, continue the beta-alba, and discontinue the digoxin. I think we can start him on Eliquis and discontinue his heparin. (2) Hypertension: PLAN: He does have a history of hypertension and his blood pressure does not appear to be a problem at this time. We will continue the beta-alba at this time He will benefit from low-dose SCOTT inhibitor due to his reduced ejection fraction. (3) CHF (congestive heart failure), NYHA class III: PLAN: He does have evidence of left ventricular systolic dysfunction with a global estimated ejection fraction of 30%. 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
[2023-05-15] MEDS: Spironolactone 25 MG Tablet PO (12:16)
--- NOTE | 2023-05-15 17:08 | PN.HOSP_ITS ---
Reason for Visit Reason for Visit: Diagnoses Sepsis, unspecified organism (05/07/23) Essential (primary) hypertension (05/07/23) Unspecified atrial fibrillation (05/07/23) Heart failure, unspecified (05/07/23) Pneumonia, unspecified organism (05/07/23) Acute respiratory failure with hypoxia (05/07/23) Noninfective gastroenteritis and colitis, unspecified (05/07/23) Urinary tract infection, site not specified (05/07/23) Severe sepsis without septic shock (05/07/23) Severe sepsis with septic shock (05/07/23) Subjective Subjective He was seen and examined today, he remains on Airvo, attempts were made to reduce his oxygen but that was not successful. He remains on IV Lasix and rate control medication for his A-fib. Patient's potassium was 3 this morning Objective Data Objective Data Vital Signs: Vital Signs Temp Pulse Resp BP Pulse Ox O2 Del Method O2 Flow Rate 97.4 F L 81 20 H 126/77 H 98 Airvo 50 05/15/23 12:11 05/15/23 12:11 05/15/23 12:11 05/15/23 12:11 05/15/23 12:11 05/15/23 12:11 05/15/23 12:11 FiO2 66 05/15/23 12:11 Oxygen Flow Rate (L/min) 50 Oxygen Delivery Method Airvo Weight: 80.5 kg Body Mass Index (BMI) 26.9 Intake & Output: Intake and Output for Last 24 Hours 05/13/23 05/14/23 05/15/23 23:59 23:59 23:59 Intake Total 1056 / 1181 1147 / 1257 470 / 470 Output Total 4400 / 5150 1955 / 2105 650 / 650 Balance -3344 / -3969 -808 / -848 -180 / -180 Lab / Micro Data 05/11/23 05:35 05/15/23 07:57 Labs: Laboratory Results - last 24 hr 05/15/23 07:57: Sodium 137, Potassium 3.0 L, Chloride 89 L, Carbon Dioxide 39.0 H, Anion Gap 9, BUN 23 H, Creatinine 1.20, Estim Creat Clear Calc 49.08, Est GFR (MDRD) Af Amer 75, Est GFR (MDRD) Non-Af 62, BUN/Creatinine Ratio 19.2, Glucose 86, Calcium 8.5 Micro: Microbiology 05/06/23 20:50 Blood Culture (Wb) - Anticubital Right Blood Culture - Final No growth in 5 days. 05/06/23 20:50 Blood Culture (Wb) - Anticubital Left Blood Culture - Final No growth in 5 days. 05/11/23 14:10 Stool Stool Lactoferrin - Final 05/11/23 14:10 Stool Enteric Bacteriology - Final 05/11/23 14:10 Stool C. difficile DNA Amplification - Final 05/06/23 21:00 Urine, Catheterized Urine Culture - Final Enterococcus faecalis 05/07/23 08:00 Mucosa - Nasopharyngeal Respiratory Panel (PCR) - Final 05/07/23 00:55 Urine Catheter - Catheter Legionella Antigen - Final 05/07/23 00:55 Urine Catheter - Catheter Streptococcus pneumoniae Antigen (M - Final 05/06/23 20:55 Nasal Secretion SARS-CoV-2 & FLU Antigen (Rapid) - Final Physical Exam Narrative alert and no apparent distress Constitutional Narrative: Patient is mute and deaf General Appearance: well kempt and well developed Orientation / Consciousness: awake HEENT normocephalic, head/scalp atraumatic and moist oral mucous membranes Eyes PERRL, EOMs intact bilaterally and conjunctivae normal Neck supple, no JVD, thyroid normal and no carotid bruits General: trachea midline Resp normal respiratory effort and no retractions Resp Narrative: Breath sounds are diminished bilaterally Auscultation: Negative for rales, rhonchi or wheezes Cardio S1 normal heart sound, S2 normal heart sound, no murmurs, no rub and no gallops Cardio Narrative: Heart rate and rhythm is irregular GI normal to inspection, nondistended, normoactive bowel sounds, soft to palpation, non-tender and non-distended Extremity no clubbing, cyanosis or edema Skin no rashes or lesions noted General Skin Exam: no breakdown Neuro CN's II-XII intact bilaterally, moves all extremities, no focal motor deficits and no sensory deficits noted Sensorium / Orientation: awake and alert Psych Psych Narrative: Patient appears calm Assessment & Plan Assessment/Plan (1) CHF (congestive heart failure), NYHA class III: (2) Acute hypoxemic respiratory failure: (3) Severe sepsis: PLAN: Plan 1. Septic shock secondary to Enterococcus urinary tract infection-patient has completed his course of IV Unasyn at this time #2 hypoxic respiratory failure-patient is currently on Airvo at this time, the etiology of the patient's hypoxic respiratory failure is not clear at this time, it appears he may have an element of systolic congestive heart failure, patient is now on amiodarone due to his atrial fibrillation and he is receiving oral La six. Patient's pulse ox will be monitored. Patient remains on IV Lasix for and he is now on 40 mg IV twice daily #3 acute kidney injury-resolved, BMP will be repeated tomorrow #4 A-fib with RVR-patient is being seen by cardiology, he is on amiodarone and beta-alba #5 [id number] II secondary to demand ischemia, cardiology seeing the patient, he is on metoprolol and atorvastatin #6 cognitive impairment-complicates care, clinical course, recovery, and prognosis #7 congenital deaf mute-complicates care, clinical course, recovery, and prognosis #8 acute systolic CHF-continue IV Lasix, metoprolol, and an SCOTT inhibitor, he was also placed on spironolactone today #9 hypokalemia-patient was given potassium supplementation today, his potassium will be monitored closely, he is not on spironolactone, I have elected to place him on oral potassium also Again patient's CODE STATUS was confirmed to be a DNR CC arrest without intubation. Total clinical time spent by myself addressing the patient's medical issues, reviewing all of his data, and collaborating with patient's care team: 35 minutes Charges/Coding Visit Charges Inpatient E&M: 89586 Subs Hosp L2
[2023-05-15] MEDS: Potassium Chloride Oral Tablet 20 MEQ 40 MEQ PO (17:20)
[2023-05-15] MEDS: Furosemide 40 MG/4 ML Vial IV (17:20)
[2023-05-15] MEDS: Atorvastatin Calcium 20 MG Tablet PO (21:42)
[2023-05-15] MEDS: APIXABAN 2.5 MG TABLET (WCH) PO (21:43)
[2023-05-16] VITALS (19 sets, daily range): BP systolic 97–125; BP diastolic 50–75; PULSE 89–113; RESP 16–18; TEMP 36.7–37.7; O2SAT 84–98
[2023-05-16 07:31] LABS: Anion Gap 8 (5-15); BUN 27 mg/dL (7-18); BUN/Creat Ratio 21.4 RATIO (10-20); Calcium,Total 8.5 mg/dL (8.5-10.1); Chloride 90 mmol/L (98-107); Creatinine, Serum 1.26 mg/dL (0.70-1.30); EST Glomerular Filtration Rate 59 mL/min (>60); Est Glom Filt Rate - Afr Amer 71 mL/min (>60); Estimated Creatinine Clearance 46.75 ml/min; Glucose 107 mg/dL (74-106); Potassium 3.2 mmol/L (3.5-5.1); Sodium Level 137 mmol/L (136-145)
[2023-05-16] MEDS: Potassium Chloride Oral Tablet 20 MEQ PO ×2 (10:29→16:27)
[2023-05-16] MEDS: Ensure Plus High Protein 120 ML LIQUID PO ×2 (10:29→14:47)
[2023-05-16] MEDS: Cholecalciferol (VIT D3) 25 MCG TABLET (1,000 UNITS) 50 MCG PO (10:29)
[2023-05-16] MEDS: APIXABAN 2.5 MG TABLET (WCH) PO ×2 (10:30→20:56)
[2023-05-16] MEDS: Amiodarone 200 MG Tablet PO ×2 (10:47→20:56)
[2023-05-16] MEDS: Spironolactone 25 MG Tablet PO (10:47)
[2023-05-16] MEDS: Potassium Chloride Oral Tablet 20 MEQ 40 MEQ PO (11:33)
[2023-05-16] MEDS: Metoprolol Tartrate 50 MG Tablet PO (11:33)
[2023-05-16] MEDS: Furosemide 20 MG/2 ML VIAL IV (11:33)
--- NOTE | 2023-05-16 15:57 | PCM.PN.HOSP ---
Reason for Visit Reason for Visit: Diagnoses Sepsis, unspecified organism (05/07/23) Essential (primary) hypertension (05/07/23) Unspecified atrial fibrillation (05/07/23) Heart failure, unspecified (05/07/23) Pneumonia, unspecified organism (05/07/23) Acute respiratory failure with hypoxia (05/07/23) Noninfective gastroenteritis and colitis, unspecified (05/07/23) Urinary tract infection, site not specified (05/07/23) Severe sepsis without septic shock (05/07/23) Severe sepsis with septic shock (05/07/23) Subjective Subjective Patient was seen and examined today, he is currently on nasal cannula oxygen at 5 L, I had to reduce some of his medications due to hypotension. Objective Data Objective Data Vital Signs: Vital Signs Temp Pulse Resp BP Pulse Ox O2 Del Method O2 Flow Rate 98.1 F 93 18 110/70 94 Nasal Cannula 5 05/16/23 15:26 05/16/23 15:26 05/16/23 15:26 05/16/23 15:26 05/16/23 15:26 05/16/23 15:26 05/16/23 15:26 FiO2 66 05/15/23 17:09 Oxygen Flow Rate (L/min) 5 Oxygen Delivery Method Nasal Cannula Weight: 80.5 kg Body Mass Index (BMI) 26.9 Intake & Output: Intake and Output for Last 24 Hours 05/14/23 05/15/23 05/16/23 23:59 23:59 23:59 Intake Total 1147 / 1257 890 / 940 410 / 410 Output Total 1955 / 2105 650 / 650 2400 / 2400 Balance -808 / -848 240 / 290 -1989 / Lab / Micro Data 05/11/23 05:35 05/16/23 05:36 Labs: Laboratory Results - last 24 hr 05/16/23 05:36: Sodium 137, Potassium 3.2 L, Chloride 90 L, Carbon Dioxide 39.0 H, Anion Gap 8, BUN 27 H, Creatinine 1.26, Estim Creat Clear Calc 46.75, Est GFR (MDRD) Af Amer 71, Est GFR (MDRD) Non-Af 59 L, BUN/Creatinine Ratio 21.4 H, Glucose 107 H, Calcium 8.5 Micro: Microbiology 05/06/23 20:50 Blood Culture (Wb) - Anticubital Right Blood Culture - Final No growth in 5 days. 05/06/23 20:50 Blood Culture (Wb) - Anticubital Left Blood Culture - Final No growth in 5 days. 05/11/23 14:10 Stool Stool Lactoferrin - Final 05/11/23 14:10 Stool Enteric Bacteriology - Final 05/11/23 14:10 Stool C. difficile DNA Amplification - Final 05/06/23 21:00 Urine, Catheterized Urine Culture - Final Enterococcus faecalis 05/07/23 08:00 Mucosa - Nasopharyngeal Respiratory Panel (PCR) - Final 05/07/23 00:55 Urine Catheter - Catheter Legionella Antigen - Final 05/07/23 00:55 Urine Catheter - Catheter Streptococcus pneumoniae Antigen (M - Final 05/06/23 20:55 Nasal Secretion SARS-CoV-2 & FLU Antigen (Rapid) - Final Physical Exam Narrative alert and no apparent distress Constitutional Narrative: Patient is mute and deaf General Appearance: well kempt and well developed Orientation / Consciousness: awake HEENT normocephalic, head/scalp atraumatic and moist oral mucous membranes Eyes PERRL, EOMs intact bilaterally and conjunctivae normal Neck supple, no JVD, thyroid normal and no carotid bruits General: trachea midline Resp normal respiratory effort and no retractions Resp Narrative: Breath sounds are diminished bilaterally Auscultation: Negative for rales, rhonchi or wheezes Cardio S1 normal heart sound, S2 normal heart sound, no murmurs, no rub and no gallops Cardio Narrative: Heart rate and rhythm is irregular GI normal to inspection, nondistended, normoactive bowel sounds, soft to palpation, non-tender and non-distended Extremity no clubbing, cyanosis or edema Skin no rashes or lesions noted General Skin Exam: no breakdown Neuro CN's II-XII intact bilaterally, moves all extremities, no focal motor deficits and no sensory deficits noted Sensorium / Orientation: awake and alert Psych Psych Narrative: Patient appears calm Assessment & Plan Assessment/Plan (1) CHF (congestive heart failure), NYHA class III: (2) Acute hypoxemic respiratory failure: (3) Severe sepsis: PLAN: Plan 1. Septic shock secondary to Enterococcus urinary tract infection-patient has completed his course of IV Unasyn at this time #2 hypoxic respiratory failure-patient is currently on nasal cannula oxygen at this time, continue present meds with adjustments on his Lasix and metoprolol #3 acute kidney injury-resolved, BMP will be repeated tomorrow #4 A-fib with RVR-patient is being seen by cardiology, he is on amiodarone and beta-alba #5 [id number] II secondary to demand ischemia, cardiology seeing the patient, he is on metoprolol and atorvastatin #6 cognitive impairment-complicates care, clinical course, recovery, and prognosis #7 congenital deaf mute-complicates care, clinical course, recovery, and prognosis #8 acute systolic CHF-continue IV Lasix, metoprolol, and an SCOTT inhibitor, he was also placed on spironolactone today #9 hypokalemia-patient was given potassium supplementation today, his potassium will be monitored closely, he is on spironolactone, I have elected to place him on oral potassium also Again patient's CODE STATUS was confirmed to be a DNR CC arrest without intubation. Total clinical time spent by myself addressing the patient's medical issues, reviewing all of his data, and collaborating with patient's care team: 35 minutes Charges/Coding Visit Charges Inpatient E&M: 45394 Subs Hosp L2
[2023-05-16] MEDS: Tamsulosin HCl 0.4 MG Capsule PO (16:27)
[2023-05-16] MEDS: Sodium Chloride 0.65% 1 SPRAY SPRAY.BTL 2 SPRAY NASAL (16:33)
[2023-05-16] MEDS: Furosemide 40 MG/4 ML Vial IV (17:41)
[2023-05-16] MEDS: Metoprolol Tartrate 100 MG Tablet PO (20:56)
[2023-05-16] MEDS: Atorvastatin Calcium 20 MG Tablet PO (20:56)
[2023-05-17] VITALS (18 sets, daily range): BP systolic 93–113; BP diastolic 60–79; PULSE 80–103; RESP 16–18; TEMP 36.1–36.7; O2SAT 85–100
--- NOTE | 2023-05-17 03:14 | PCM.HOSP.N ---
Hospitalist Note Continued evidence urinary retention, galvin ordered.
[2023-05-17 06:43] LABS: Anion Gap 6 (5-15); BUN 25 mg/dL (7-18); Calcium,Total 9.2 mg/dL (8.5-10.1); Chloride 92 mmol/L (98-107); Creatinine, Serum 1.25 mg/dL (0.70-1.30); EST Glomerular Filtration Rate 59 mL/min (>60); Est Glom Filt Rate - Afr Amer 72 mL/min (>60); Estimated Creatinine Clearance 47.12 ml/min; Glucose 103 mg/dL (74-106); Potassium 3.9 mmol/L (3.5-5.1); Sodium Level 139 mmol/L (136-145)
--- NOTE | 2023-05-17 06:56 | PN.CC_ITS ---
Assessment & Plan Assessment/Plan (1) Acute hypoxemic respiratory failure: PLAN: Plan RECOMMENDATIONS: 1. Wean supplemental oxygen to maintain saturations at or above 90%. 2. Ongoing diuresis as tolerated by hemodynamics and renal function. 3. Encourage incentive spirometer use and mobilize patient as tolerated. 4. Rate/rhythm control strategy per cardiology recommendations. IMPRESSIONS: 1. Acute hypoxemic respiratory failure Clinical suspicion for underlying decompensated heart failure in the setting of atrial fibrillation with RVR, which is likely leading to flash pulmonary edema. Recommend aggressive management of his atrial fibrillation and volume status. Cardiology is currently following to assist with medical management. Continue supplemental oxygen to maintain saturations at or above 90%. The patient did complete a treatment course of antimicrobials to address any underlying pulmonary infectious etiologies. CTA chest showed no evidence for pulmonary embolism. The patient remains overall net positive from a volume perspective for the hospitalization. Therefore, I would recommend continuing ongoing attempts at volume optimization as tolerated by hemodynamics and renal function. 2. NSTEMI/atrial fibrillation with RVR Defer medical management to cardiology. 3. Baseline cognitive impairment/hypertension/hyperlipidemia Complicates care, management, recovery and prognosis. Continue supportive care as noted above. CODE STATUS: DNR CCA without intubation This note was generated with [employer] dictation software. It may contain incorrect words, spelling, and punctuation that were not noted in checking the note before signing. Subjective Subjective The patient was seen and examined at the bedside this morning. Events from the last 24 hours have been reviewed. The patient is currently afebrile, hemodynamically stable and maintaining appropriate oxygen saturations on 6 L/min via nasal cannula. The patient remains overall net +2.4 L for the hospitalization. The patient remains on scheduled IV Lasix twice daily. Objective Data Objective Data The patient's most recent lab work, culture data and imaging studies have all been personally reviewed. Surface echocardiogram demonstrated an ejection fraction of 30% with moderate to severe global hypokinesis of the LV, along with mild to moderate global RV systolic dysfunction and a pulmonary artery systolic pressure 45 mmHg. Vital Signs: Vital Signs Temp Pulse Resp BP Pulse Ox O2 Del Method O2 Flow Rate 96.9 F L 80 16 101/72 95 Nasal Cannula 7 05/17/23 03:00 05/17/23 03:00 05/17/23 03:00 05/17/23 03:00 05/17/23 03:00 05/17/23 03:00 05/17/23 03:00 FiO2 66 05/15/23 17:09 Oxygen Flow Rate (L/min) 7 Oxygen Delivery Method Nasal Cannula Weight: 177 lb 7.554 oz Body Mass Index (BMI) 26.9 Intake & Output: Intake and Output for Last 24 Hours 05/15/23 05/16/23 05/17/23 23:59 23:59 23:59 Intake Total 890 / 940 930 / 930 Output Total 650 / 650 1300 / 1300 1200 / 1200 Balance 240 / 290 -370 / -370 -1200 / -1200 Lab / Micro Data Attestation: I reviewed the patient's lab results. 05/11/23 05:35 05/17/23 05:50 Labs: Laboratory Results - last 24 hr 05/16/23 05:36: Sodium 137, Potassium 3.2 L, Chloride 90 L, Carbon Dioxide 39.0 H, Anion Gap 8, BUN 27 H, Creatinine 1.26, Estim Creat Clear Calc 46.75, Est GFR (MDRD) Af Amer 71, Est GFR (MDRD) Non-Af 59 L, BUN/Creatinine Ratio 21.4 H, G lucose 107 H, Calcium 8.5 05/17/23 05:50: Sodium 139, Potassium 3.9, Chloride 92 L, Carbon Dioxide 41.0 H, Anion Gap 6, BUN 25 H, Creatinine 1.25, Estim Creat Clear Calc 47.12, Est GFR (MDRD) Af Amer 72, Est GFR (MDRD) Non-Af 59 L, BUN/Creatinine Ratio 20.0, Glucose 103, Calcium 9.2 Micro: Microbiology 05/06/23 20:50 Blood Culture (Wb) - Anticubital Right Blood Culture - Final No growth in 5 days. 05/06/23 20:50 Blood Culture (Wb) - Anticubital Left Blood Culture - Final No growth in 5 days. 05/11/23 14:10 Stool Stool Lactoferrin - Final 05/11/23 14:10 Stool Enteric Bacteriology - Final 05/11/23 14:10 Stool C. difficile DNA Amplification - Final 05/06/23 21:00 Urine, Catheterized Urine Culture - Final Enterococcus faecalis 05/07/23 08:00 Mucosa - Nasopharyngeal Respiratory Panel (PCR) - Final 05/07/23 00:55 Urine Catheter - Catheter Legionella Antigen - Final 05/07/23 00:55 Urine Catheter - Catheter Streptococcus pneumoniae Antigen (M - Final 05/06/23 20:55 Nasal Secretion SARS-CoV-2 & FLU Antigen (Rapid) - Final Radiography Diagnostic Testing: Radiology Impression Chest CTA 05/12/23 07:37 IMPRESSION: Bilateral pleural effusions with bibasilar infiltration and/or atelectasis is worse at the left lung base. No evidence of pulmonary embolism. Electronically Signed: Glenroy Robles MD at 14:24 EDT , Physical Exam Const alert and no apparent distress Constitutional Narrative: Sitting in bedside recliner. General Appearance: cooperative HEENT normocephalic and head/scalp atraumatic Eyes PERRL and EOMs intact bilaterally Neck supple General: trachea midline Chest inspection of chest normal Resp normal respiratory effort Resp Narrative: Poor inspiratory effort Auscultation: diminished lung sounds Cardio regular rate, S1 normal heart sound and S2 normal heart sound Rhythm: abnormal rhythm GI normal to inspection, nondistended, normoactive bowel sounds Extremity no clubbing, cyanosis or edema Skin no rashes or lesions noted Neuro CN's II-XII intact bilaterally and no focal motor deficits Psych Mood & Affect: flat affect Charges/Coding Visit Charges Inpatient E&M: 81702 Subs Hosp L2
[2023-05-17] MEDS: APIXABAN 2.5 MG TABLET (WCH) PO ×2 (09:52→20:48)
[2023-05-17] MEDS: Cholecalciferol (VIT D3) 25 MCG TABLET (1,000 UNITS) 50 MCG PO (09:52)
[2023-05-17] MEDS: Spironolactone 25 MG Tablet PO (09:52)
[2023-05-17] MEDS: Amiodarone 200 MG Tablet PO ×2 (09:52→20:49)
[2023-05-17] MEDS: Potassium Chloride Oral Tablet 20 MEQ PO ×2 (09:52→18:02)
[2023-05-17] MEDS: Metoprolol Tartrate 100 MG Tablet PO (09:53)
[2023-05-17] MEDS: Furosemide 40 MG/4 ML Vial IV ×2 (11:31→18:02)
[2023-05-17] MEDS: 0.9% Saline Lock 10 ML Syringe IV ×2 (11:32→18:02)
--- NOTE | 2023-05-17 13:37 | CASEMGMT ---
Addendum entered by Bernarda Camejo 05/17/23 15:21: SHARMILA received a return call from Crystal Hastings at [employer] . Crystal said she came to [facility] this am and did her assessment. She will submit everything to the state tomorrow am. Bernarda MARCUS Original Note: SHARMILA called Crystal Hastings at [employer] and left her a voice mail requesting a return call. Bernarda MARCUS
--- NOTE | 2023-05-17 15:03 | CASEMGMT ---
Patient does not have a Healthcare Power of Neuropsychologist or a Healthcare Living Will. However, patient does have a legal guardian. Guardianship paperwork is on file at [facility]. Bernarda MARCUS
--- NOTE | 2023-05-17 15:17 | CASEMGMT ---
Discharge Planning Updates sent to via [facility]. Victoria Florian, Discharge Planning Asst.
[2023-05-17] MEDS: Ensure Plus High Protein 120 ML LIQUID PO ×2 (15:57→18:03)
--- NOTE | 2023-05-17 16:32 | PCM.PN.HOSP ---
Reason for Visit Reason for Visit: Diagnoses Sepsis, unspecified organism (05/07/23) Essential (primary) hypertension (05/07/23) Unspecified atrial fibrillation (05/07/23) Heart failure, unspecified (05/07/23) Pneumonia, unspecified organism (05/07/23) Acute respiratory failure with hypoxia (05/07/23) Noninfective gastroenteritis and colitis, unspecified (05/07/23) Urinary tract infection, site not specified (05/07/23) Severe sepsis without septic shock (05/07/23) Severe sepsis with septic shock (05/07/23) Subjective Subjective Patient was seen and examined today, he is on low-flow nasal cannula oxygen at this time, he does not appear short of breath or in any distress. Objective Data Objective Data Vital Signs: Vital Signs Temp Pulse Resp BP Pulse Ox O2 Del Method O2 Flow Rate 97.6 F L 86 17 113/61 85 Room Air 1 05/17/23 13:26 05/17/23 13:26 05/17/23 13:26 05/17/23 13:26 05/17/23 15:58 05/17/23 15:58 05/17/23 15:29 FiO2 66 05/15/23 17:09 Oxygen Flow Rate (L/min) 1 Oxygen Delivery Method Room Air Weight: 80.5 kg Body Mass Index (BMI) 26.9 Intake & Output: Intake and Output for Last 24 Hours 05/15/23 05/16/23 05/17/23 23:59 23:59 23:59 Intake Total 890 / 940 930 / 930 660 / 660 Output Total 650 / 650 1300 / 1300 1650 / 1650 Balance 240 / 290 -370 / -370 -990 / -990 Lab / Micro Data 05/11/23 05:35 05/17/23 05:50 Labs: Laboratory Results - last 24 hr 05/17/23 05:50: Sodium 139, Potassium 3.9, Chloride 92 L, Carbon Dioxide 41.0 H, Anion Gap 6, BUN 25 H, Creatinine 1.25, Estim Creat Clear Calc 47.12, Est GFR (MDRD) Af Amer 72, Est GFR (MDRD) Non-Af 59 L, BUN/Creatinine Ratio 20.0, Glucose 103, Calcium 9.2 Micro: Microbiology 05/06/23 20:50 Blood Culture (Wb) - Anticubital Right Blood Culture - Final No growth in 5 days. 05/06/23 20:50 Blood Culture (Wb) - Anticubital Left Blood Culture - Final No growth in 5 days. 05/11/23 14:10 Stool Stool Lactoferrin - Final 05/11/23 14:10 Stool Enteric Bacteriology - Final 05/11/23 14:10 Stool C. difficile DNA Amplification - Final 05/06/23 21:00 Urine, Catheterized Urine Culture - Final Enterococcus faecalis 05/07/23 08:00 Mucosa - Nasopharyngeal Respiratory Panel (PCR) - Final 05/07/23 00:55 Urine Catheter - Catheter Legionella Antigen - Final 05/07/23 00:55 Urine Catheter - Catheter Streptococcus pneumoniae Antigen (M - Final 05/06/23 20:55 Nasal Secretion SARS-CoV-2 & FLU Antigen (Rapid) - Final Physical Exam Narrative alert and no apparent distress Constitutional Narrative: Patient is mute and deaf General Appearance: well kempt and well developed Orientation / Consciousness: awake HEENT normocephalic, head/scalp atraumatic and moist oral mucous membranes Eyes PERRL, EOMs intact bilaterally and conjunctivae normal Neck supple, no JVD, thyroid normal and no carotid bruits General: trachea midline Resp normal respiratory effort and no retractions Resp Narrative: Breath sounds are diminished bilaterally Auscultation: Negative for rales, rhonchi or wheezes Cardio S1 normal heart sound, S2 normal heart sound, no murmurs, no rub and no gallops Cardio Narrative: Heart rate and rhythm is irregular GI normal to inspection, nondistended, normoactive bowel sounds, soft to palpation, non-tender and non-distended Extremity no clubbing, cyanosis or edema Skin no rashes or lesions noted General Skin Exam: no breakdown Neuro CN's II-XII intact bilaterally, moves all extremities, no focal motor deficits and no sensory deficits noted Sensorium / Orientation: awake and alert Psych Psych Narrative: Patient appears calm Assessment & Plan Assessment/Plan (1) Acute hypoxemic respiratory failure: (2) CHF (congestive heart failure), NYHA class III: (3) Severe sepsis: PLAN: Plan 1. Septic shock secondary to Enterococcus urinary tract infection-patient has completed his course of IV Unasyn at this time #2 hypoxic respiratory failure-patient is currently on nasal cannula oxygen at this time, continue present meds with adjustments on his Lasix and metoprolol #3 acute kidney injury-resolved #4 A-fib with RVR-patient is being seen by cardiology, he is on amiodarone and beta-alba #5 [id number] II secondary to demand ischemia, cardiology seeing the patient, he is on metoprolol and atorvastatin #6 cognitive impairment-complicates care, clinical course, recovery, and prognosis #7 congenital deaf mute-complicates care, clinical course, recovery, and prognosis #8 acute systolic CHF-patient is on an SCOTT inhibitor, beta-alba, and on a diuretic and spironolactone. #9 hypokalemia-resolved at this time #10 urinary retention-possibly secondary to BPH, patient is on Flomax at this time and has a Caldwell catheter Again patient's CODE STATUS was confirmed to be a DNR CC arrest without intubation. Total clinical time spent by myself addressing the patient's medical issues, reviewing all of his data, and collaborating with patient's care team: 35 minutes Charges/Coding Visit Charges Inpatient E&M: 99004 Subs Hosp L2
[2023-05-17] MEDS: Tamsulosin HCl 0.4 MG Capsule 0.8 MG PO (18:01)
[2023-05-17] MEDS: Atorvastatin Calcium 20 MG Tablet PO (20:48)
[2023-05-18] VITALS (7 sets, daily range): BP systolic 99–106; BP diastolic 66–67; PULSE 85–99; RESP 16–18; TEMP 36.4–36.6; O2SAT 94–97
[2023-05-18] MEDS: Amiodarone 200 MG Tablet PO (09:48)
[2023-05-18] MEDS: Potassium Chloride Oral Tablet 20 MEQ PO (09:48)
[2023-05-18] MEDS: Spironolactone 25 MG Tablet PO (09:48)
[2023-05-18] MEDS: Metoprolol Tartrate 100 MG Tablet PO (09:48)
[2023-05-18] MEDS: APIXABAN 2.5 MG TABLET (WCH) PO (09:49)
[2023-05-18] MEDS: Lisinopril 2.5 MG Tablet PO (09:49)
[2023-05-18] MEDS: Furosemide 40 MG/4 ML Vial IV (09:49)
[2023-05-18] MEDS: Cholecalciferol (VIT D3) 25 MCG TABLET (1,000 UNITS) 50 MCG PO (09:49)
[2023-05-18] MEDS: 0.9% Saline Lock 10 ML Syringe IV (09:50)
--- NOTE | 2023-05-18 10:34 | CASEMGMT ---
SHARMILA spoke with Alley, patient's SSA at [employer]. She confirmed that [facility] is the plan. SHARMILA let Alley know SHARMILA will keep them updated. Plan: [facility] pending receipt of categorical determination from Board of DD and state. Bernarda Camejo AIR DIRECTOR ANGELINE
--- NOTE | 2023-05-18 10:38 | PCM.PN.INT ---
Assessment & Plan Assessment/Plan (1) Acute hypoxemic respiratory failure: PLAN: Plan RECOMMENDATIONS: 1. Wean supplemental oxygen to maintain saturations at or above 90%. 2. Ongoing diuresis as tolerated by hemodynamics and renal function. 3. Encourage incentive spirometer use and mobilize patient as tolerated. 4. Rate/rhythm control strategy per cardiology recommendations. 5. We will sign off from a pulmonary/critical care perspective. Please call with any additional questions. IMPRESSIONS: 1. Acute hypoxemic respiratory failure Clinical suspicion for underlying decompensated heart failure in the setting of atrial fibrillation with RVR, which is likely leading to flash pulmonary edema. Recommend aggressive management of his atrial fibrillation and volume status. Cardiology is currently following to assist with medical management. Continue supplemental oxygen to maintain saturations at or above 90%. The patient did complete a treatment course of antimicrobials to address any underlying pulmonary infectious etiologies. CTA chest showed no evidence for pulmonary embolism. The patient's oxygenation status has improved with volume optimization. Recommend continuing IV Lasix as tolerated by hemodynamics and renal function. 2. NSTEMI/atrial fibrillation with RVR Defer medical management to cardiology. 3. Baseline cognitive impairment/hypertension/hyperlipidemia Complicates care, management, recovery and prognosis. Continue supportive care as noted above. CODE STATUS: DNR CCA without intubation This note was generated with [employer] dictation software. It may contain incorrect words, spelling, and punctuation that were not noted in checking the note before signing. Subjective Subjective The patient was seen and examined at the bedside this morning. Events from the last 24 hours have been reviewed. The patient is currently afebrile, hemodynamically stable and maintaining appropriate oxygen saturations on 2 L/min via nasal cannula. The patient had an uneventful night. Objective Data Objective Data The patient's most recent lab work, culture data and imaging studies have all been personally reviewed. Surface echocardiogram demonstrated an ejection fraction of 30% with moderate to severe global hypokinesis of the LV, along with mild to moderate global RV systolic dysfunction and a pulmonary artery systolic pressure 45 mmHg. Vital Signs: Vital Signs Temp Pulse Resp BP Pulse Ox O2 Del Method O2 Flow Rate 97.6 F L 99 18 106/67 97 Nasal Cannula 2 05/18/23 09:42 05/18/23 09:48 05/18/23 09:42 05/18/23 09:42 05/18/23 09:42 05/18/23 09:42 05/18/23 09:42 FiO2 66 05/15/23 17:09 Oxygen Flow Rate (L/min) 2 Oxygen Delivery Method Nasal Cannula Weight: 177 lb 7.554 oz Body Mass Index (BMI) 26.9 Intake & Output: Intake and Output for Last 24 Hours 05/16/23 05/17/23 05/18/23 23:59 23:59 23:59 Intake Total 930 / 930 1160 / 1160 Output Total 1300 / 1300 1900 / 2200 850 / 850 Balance -370 / -370 -740 / -1040 -850 / -850 Lab / Micro Data Attestation: I reviewed the patient's lab results. 05/11/23 05:35 05/17/23 05:50 Labs: Laboratory Results - last 24 hr 05/16/23 05:36: Sodium 137, Potassium 3.2 L, Chloride 90 L, Carbon Dioxide 39.0 H, Anion Gap 8, BUN 27 H, Creatinine 1.26, Estim Creat Clear Calc 46.75, Est GFR (MDRD) Af Amer 71, Est GFR (MDRD) Non-Af 59 L, BUN/Creatinine Ratio 21.4 H, Glucose 107 H, Calcium 8.5 05/17/23 05:50: Sodium 139, Potassium 3.9, Chloride 92 L, Carbon Dioxide 41.0 H, Anion Gap 6, BUN 25 H, Creatinine 1.25, Estim Creat Clear Calc 47.12, Est GFR (MDRD) Af Amer 72, Est GFR (MDRD) Non-Af 59 L, BUN/Creatinine Ratio 20.0, Glucose 103, Calcium 9.2 Micro: Microbiology 05/06/23 20:50 Blood Culture (Wb) - Anticubital Right Blood Culture - Final No growth in 5 days. 05/06/23 20:50 Blood Culture (Wb) - Anticubital Left Blood Culture - Final No growth in 5 days. 05/11/23 14:10 Stool Stool Lactoferrin - Final 05/11/23 14:10 Stool Enteric Bacteriology - Final 05/11/23 14:10 Stool C. difficile DNA Amplification - Final 05/06/23 21:00 Urine, Catheterized Urine Culture - Final Enterococcus faecalis 05/07/23 08:00 Mucosa - Nasopharyngeal Respiratory Panel (PCR) - Final 05/07/23 00:55 Urine Catheter - Catheter Legionella Antigen - Final 05/07/23 00:55 Urine Catheter - Catheter Streptococcus pneumoniae Antigen (M - Final 05/06/23 20:55 Nasal Secretion SARS-CoV-2 & FLU Antigen (Rapid) - Final Radiography Diagnostic Testing: Radiology Impression Chest CTA 05/12/23 07:37 IMPRESSION: Bilateral pleural effusions with bibasilar infiltration and/or atelectasis is worse at the left lung base. No evidence of pulmonary embolism. Electronically Signed: Glenroy Robles MD at 14:24 EDT , Physical Exam Const alert and no apparent distress General Appearance: cooperative HEENT normocephalic and head/scalp atraumatic Eyes PERRL and EOMs intact bilaterally Neck supple General: trachea midline Chest inspection of chest normal Resp normal respiratory effort Resp Narrative: Poor inspiratory effort Auscultation: diminished lung sounds Cardio regular rate, S1 normal heart sound and S2 normal heart sound Rhythm: abnormal rhythm GI normal to inspection, nondistended, normoactive bowel sounds Extremity no clubbing, cyanosis or edema Skin no rashes or lesions noted Neuro CN's II-XII intact bilaterally and no focal motor deficits Psych Mood & Affect: flat affect Charges/Coding Visit Charges Inpatient E&M: 29964 Subs Hosp L2
--- NOTE | 2023-05-18 10:41 | PCM.PN.HOSP ---
Reason for Visit Reason for Visit: Diagnoses Sepsis, unspecified organism (05/07/23) Essential (primary) hypertension (05/07/23) Unspecified atrial fibrillation (05/07/23) Heart failure, unspecified (05/07/23) Pneumonia, unspecified organism (05/07/23) Acute respiratory failure with hypoxia (05/07/23) Noninfective gastroenteritis and colitis, unspecified (05/07/23) Urinary tract infection, site not specified (05/07/23) Severe sepsis without septic shock (05/07/23) Severe sepsis with septic shock (05/07/23) Subjective Subjective Patient was seen and examined today, he is currently on 2 L of oxygen via nasal cannula, we are currently awaiting approval for him to go to an extended care facility. I have decided to transition the patient over to oral Lasix starting today Objective Data Objective Data Vital Signs: Vital Signs Temp Pulse Resp BP Pulse Ox O2 Del Method O2 Flow Rate 97.6 F L 99 18 106/67 97 Nasal Cannula 2 05/18/23 09:42 05/18/23 09:48 05/18/23 09:42 05/18/23 09:42 05/18/23 09:42 05/18/23 09:42 05/18/23 09:42 FiO2 66 05/15/23 17:09 Oxygen Flow Rate (L/min) 2 Oxygen Delivery Method Nasal Cannula Weight: 80.5 kg Body Mass Index (BMI) 26.9 Intake & Output: Intake and Output for Last 24 Hours 05/16/23 05/17/23 05/18/23 23:59 23:59 23:59 Intake Total 930 / 930 1160 / 1160 Output Total 1300 / 1300 1900 / 2200 850 / 850 Balance -370 / -370 -740 / -1040 -850 / -850 Lab / Micro Data 05/11/23 05:35 05/17/23 05:50 Micro: Microbiology 05/06/23 20:50 Blood Culture (Wb) - Anticubital Right Blood Culture - Final No growth in 5 days. 05/06/23 20:50 Blood Culture (Wb) - Anticubital Left Blood Culture - Final No growth in 5 days. 05/11/23 14:10 Stool Stool Lactoferrin - Final 05/11/23 14:10 Stool Enteric Bacteriology - Final 05/11/23 14:10 Stool C. difficile DNA Amplification - Final 05/06/23 21:00 Urine, Catheterized Urine Culture - Final Enterococcus faecalis 05/07/23 08:00 Mucosa - Nasopharyngeal Respiratory Panel (PCR) - Final 05/07/23 00:55 Urine Catheter - Catheter Legionella Antigen - Final 05/07/23 00:55 Urine Catheter - Catheter Streptococcus pneumoniae Antigen (M - Final 05/06/23 20:55 Nasal Secretion SARS-CoV-2 & FLU Antigen (Rapid) - Final Physical Exam Narrative alert and no apparent distress Constitutional Narrative: Patient is mute and deaf General Appearance: well kempt and well developed Orientation / Consciousness: awake HEENT normocephalic, head/scalp atraumatic and moist oral mucous membranes Eyes PERRL, EOMs intact bilaterally and conjunctivae normal Neck supple, no JVD, thyroid normal and no carotid bruits General: trachea midline Resp normal respiratory effort and no retractions Resp Narrative: Breath sounds are diminished bilaterally Auscultation: Negative for rales, rhonchi or wheezes Cardio S1 normal heart sound, S2 normal heart sound, no murmurs, no rub and no gallops Cardio Narrative: Heart rate and rhythm is irregular GI normal to inspection, nondistended, normoactive bowel sounds, soft to palpation, non-tender and non-distended Extremity no clubbing, cyanosis or edema Skin no rashes or lesions noted General Skin Exam: no breakdown Neuro CN's II-XII intact bilaterally, moves all extremities, no focal motor deficits and no sensory deficits noted Sensorium / Orientation: awake and alert Psych Psych Narrative: Patient appears calm Assessment & Plan Assessment/Plan (1) CHF (congestive heart failure), NYHA class III: (2) Acute hypoxemic respiratory failure: (3) Severe sepsis: PLAN: Plan 1. Septic shock secondary to Enterococcus urinary tract infection-patient has completed his course of IV Unasyn at this time #2 hypoxic respiratory failure-patient is currently on nasal cannula oxygen at this time, continue present meds with adjustments on his Lasix and metoprolol #3 acute kidney injury-resolved #4 A-fib with RVR-patient is being seen by cardiology, he is on amiodarone and beta-alba #5 [id number] II secondary to demand ischemia, cardiology seeing the patient, he is on metoprolol and atorvastatin #6 cognitive impairment-complicates care, clinical course, recovery, and prognosis #7 congenital deaf mute-complicates care, clinical course, recovery, and prognosis, we are currently awaiting approval for him to go to an extended care facility for ongoing care #8 acute systolic CHF-patient is on an SCOTT inhibitor, beta-alba, and on a diuretic and spironolactone. #9 hypokalemia-resolved at this time #10 urinary retention-possibly secondary to BPH, patient is on Flomax at this time and has a Caldwell catheter Again patient's CODE STATUS was confirmed to be a DNR CC arrest without intubation. Total clinical time spent by myself addressing the patient's medical issues, reviewing all of his data, and collaborating with patient's care team: 35 minutes Charges/Coding Visit Charges Inpatient E&M: 21094 Subs Hosp L2
[2023-05-18] MEDS: Ensure Plus High Protein 120 ML LIQUID PO (14:16)
--- NOTE | 2023-05-18 15:52 | CASEMGMT ---
Addendum entered by Bernarda Camejo 05/18/23 16:20: [facility] said [facility] can take patient tonight. SW notified physician and RN. Plan: d/c to [facility] under skilled level of care on a [facility]. Physicians will transport patient. Bernarda MARCUS Original Note: SHARMILA received approval from Board of and the state to send patient to [facility]. SHARMIAL sent a message to [facility] via [employer] to see if we can send patient today. Bernarda MARCUS
--- NOTE | 2023-05-18 16:07 | PCM.TXEXTCAR ---
Diet Diet Order/Speech Therapy: 05/07/23 09:47 Diet: Regular - General Food consistency:: Mechanical (Minced/Moist) Liquid Consistency:: Regular/Thin Type of Dietary Supplement:: Magic Cup Dessert Is pt able to select menu?: No Diet Comments: BID with lunch and dinner Routine Orders/Code Status O2 Liters per Minute: 2 O2 Frequency: Continuous Routine Lab Work: BMP (On 05/21/2023) and - (T3, T4, TSH in 1 month) Code Status: DNRCC-A (no intubation) Therapies Weight Bearing: Full weight bearing Physical Therapy: Eval and Treat Occupational Therapy: Eval and Treat Problem/Diagnosis (1) CHF (congestive heart failure), NYHA class III: Status: Acute Code(s): I50.9 - Heart failure, unspecified (2) Acute hypoxemic respiratory failure: Status: Acute Code(s): J96.01 - Acute respiratory failure with hypoxia (3) Severe sepsis: Status: Acute Code(s): A41.9 - Sepsis, unspecified organism; R65.20 - Severe sepsis without septic shock Plan 1. Septic shock secondary to Enterococcus urinary tract infection-patient has completed his course of IV Unasyn at this time #2 hypoxic respiratory failure-patient is currently on nasal cannula oxygen at this time, continue present meds with adjustments on his Lasix and metoprolol #3 acute kidney injury-resolved #4 A-fib with RVR-patient is being seen by cardiology, he is on amiodarone and beta-alba #5 [id number] II secondary to demand ischemia, cardiology seeing the patient, he is on metoprolol and atorvastatin #6 cognitive impairment-complicates care, clinical course, recovery, and prognosis #7 congenital deaf mute-complicates care, clinical course, recovery, and prognosis, we are currently awaiting approval for him to go to an extended care facility for ongoing care #8 acute systolic CHF-patient is on an SCOTT inhibitor, beta-alba, and on a diuretic and spironolactone. #9 hypokalemia-resolved at this time #10 urinary retention-possibly secondary to BPH, patient is on Flomax at this time and has a Caldwell catheter Again patient's CODE STATUS was confirmed to be a DNR CC arrest without intubation. Total clinical time spent by myself addressing the patient's medical issues, reviewing all of his data, and collaborating with patient's care team: 35 minutes Allergies/Procedures Done in Hospital Allergies No Known Allergies Allergy (Verified 05/06/23 20:26) Procedures: 2-D Echocardiogram Type of Care/Length of Stay Estimated LOS: Convalescent Care Less Than 30 days Type of Care Needed: Skilled Rehab Potential: Good Prognosis: Good Additional Orders/Day of Discharge H&P will serve as current which was dated: 05/07/23 Day of Discharge: 05/18/23 Dietary and Speech Recommendations Dietitian Recommendations/Changes: Continue liberal Regular diet as tolerated RD will order Magic Cup BID with meals to provide supplemental energy. Discharge Plan Admission Admit Date/Time: 05/07/23 00:32 Primary Reason for Your Visit: Congestive heart failure , respiratory failure Attending Provider: Mack Pereira Primary Care Provider: Brit Renee Consulting Providers: Carlton Pelayo; Jonatan Montero; Mirza España; Roel Weiner; Deshaun Rudolph; Humberto Mcgovern; Jono Holliday; Evelio Salcido; Claudia Reyes DIRECTOR OF PARTNERSHIPS Instructions Additional Instructions / Restrictions: Maintain Caldwell catheter for 1 week, at that time attempts should be made to discontinue it Discharge Orders/Prescriptions Prescriptions: New acetaminophen 325 mg Tablet 650 mg PO Q6H PRN PRN (Reason: Pain 1-10 Or Fever>100.7) Qty: 0 0RF amiodarone 200 mg Tablet 200 mg PO BID Qty: 0 0RF Rx Instructions: 1 twice a day x1 week, then 1 daily thereafter Eliquis 5 mg Tablet 2.5 mg PO BID Qty: 0 0RF furosemide 40 mg Tablet 40 mg PO BIDLX Qty: 0 0RF metoprolol tartrate 100 mg Tablet 100 mg PO BID Qty: 0 0RF spironolactone 25 mg Tablet 25 mg PO DAILY Qty: 0 0RF potassium chloride [Klor-Con M20] 20 mEq Tablet,Er Particles/Crystals 20 meq PO BIDCM Qty: 0 0RF tamsulosin 0.4 mg Capsule 0.8 mg PO DAILY@1730 Qty: 0 0RF lisinopril 2.5 mg Tablet 2.5 mg PO DAILY Qty: 0 0RF Ensure Plus High Protein 0.08 gram-1.5 kcal/mL Liquid 120 ml PO 4X/DAY Qty: 0 0RF Continued atorvastatin 20 mg tablet 20 mg PO DAILY cholecalciferol (vitamin D3) [Vitamin D3] 50 mcg (2,000 unit) capsule 2,000 unit PO DAILY Discontinued lisinopril 20 mg tablet 20 mg PO BID amlodipine 10 mg tablet 10 mg PO DAILY hydrochlorothiazide 12.5 mg capsule 12.5 mg PO DAILY atenolol 25 mg tablet 25 mg PO Q24H Referrals / Follow Up: Brit Renee MD [Primary Care Provider] - Disposition Disposition (needs filled in before D/C Order can be placed): [facility]
--- NOTE | 2023-05-18 16:17 | DS.PCM_ITS ---
Providers Date of Admission: 05/07/23 Date of Discharge: 05/18/23 Primary Care Physician: Dr. Brit Renee MD Consultations 05/10/23 09:17 Consult: Cardiology Routine Consulting Provider: Jonatan Montero Reason for Consult: flash pulm edema with afib EMERGENT Consult: No Notified: Yes Date Notified: 05/10/23 Time Notified: 09:17 Method of Notification: Text 05/12/23 07:18 Consult: Deskidding Machine Operator / Pulmonary Medicine Routine Consulting Provider: Pulmonary Medicine rayo Moulton Reason for Consult: Respiratory failure EMERGENT Consult: No Notified: Yes Date Notified: 05/12/23 Time Notified: 07:18 Method of Notification: Verbal Reason For Visit: SEPTIC SHOCK Diagnosis Discharge Diagnosis (1) CHF (congestive heart failure), NYHA class III: Status: Acute Code(s): I50.9 - Heart failure, unspecified (2) Acute hypoxemic respiratory failure: Status: Acute Code(s): J96.01 - Acute respiratory failure with hypoxia (3) Severe sepsis: Status: Acute Code(s): A41.9 - Sepsis, unspecified organism; R65.20 - Severe sepsis without septic shock Plan 1. Septic shock secondary to Enterococcus urinary tract infection-patient has completed his course of IV Unasyn at this time #2 hypoxic respiratory failure-patient is currently on nasal cannula oxygen at this time, continue present meds with adjustments on his Lasix and metoprolol #3 acute kidney injury-resolved #4 A-fib with RVR-patient is being seen by cardiology, he is on amiodarone and beta-alba #5 fmq-FTYRC-onom II secondary to demand ischemia, cardiology seeing the patient, he is on metoprolol and atorvastatin #6 cognitive impairment-complicates care, clinical course, recovery, and prognosis #7 congenital deaf mute-complicates care, clinical course, recovery, and prognosis, we are currently awaiting approval for him to go to an extended care facility for ongoing care #8 acute systolic CHF-patient is on an SCOTT inhibitor, beta-alba, and on a diuretic and spironolactone. #9 hypokalemia-resolved at this time #10 urinary retention-possibly secondary to BPH, patient is on Flomax at this time and has a Caldwell catheter #11 cardiomyopathy-type unknown Again patient's CODE STATUS was confirmed to be a DNR CC arrest without intubation. Total clinical time spent by myself addressing the patient's medical issues, reviewing all of his data, and collaborating with patient's care team: 35 minutes Medications at Discharge Home Medications atorvastatin 20 mg tablet 20 mg PO DAILY 10/06/22 cholecalciferol (vitamin D3) 50 mcg (2,000 unit) capsule (Vitamin D3) 2,000 unit PO DAILY 05/06/23 acetaminophen 325 mg tablet 650 mg (2 x 325 mg) PO Q6H PRN PRN Pain 1-10 Or Fever>100.7 #0 tabs 05/18/23 amiodarone 200 mg tablet 200 mg PO BID #0 tabs 05/18/23 apixaban 5 mg tablet (Eliquis) 2.5 mg (1/2 x 5 mg) PO BID #0 tabs 05/18/23 food supplemt, lactose-reduced 0.08 gram-1.5 kcal/mL oral liquid (Ensure Plus High Protein) 120 ml PO 4X/DAY #0 mL 05/18/23 furosemide 40 mg tablet 40 mg PO BIDLX #0 tabs 05/18/23 lisinopril 2.5 mg tablet 2.5 mg PO DAILY #0 tabs 05/18/23 metoprolol tartrate 100 mg tablet 100 mg PO BID #0 tabs 05/18/23 potassium chloride 20 mEq tablet,extended release(part/cryst) (Klor-Con M) 20 meq PO BIDCM #0 tabs 05/18/23 spironolactone 25 mg tablet 25 mg PO DAILY #0 tabs 05/18/23 tamsulosin 0.4 mg capsule 0.8 mg (2 x 0.4 mg) PO DAILY@1730 #0 caps 05/18/23 Hospital Course Operations None Procedures 2-D Echocardiogram Summary of Care Provided Minutes Spent on Discharge: 32 Hospital Course: This 77-year-old white male with cognitive impairment and congenital deafness/muteness presented to the emergency room at [facility] with nausea and vomiting and diarrhea, patient was living in a fci, per history patient was recently treated for UTI. Work-up in the emergency room included a CBC which showed an elevated white blood cell count of 19.9, lactic acid was elevated at 6.2, chest x-ray showed left lower lobe pneumonia and the patient was hypoxic requiring oxygen. Patient was started on Rocephin and Zithromax, patient's urinalysis was negative for signs of infection. EKG showed atrial flutter with a variable AV block at 132 bpm, Caldwell catheter was placed and emptied approximately 1500 cc of urine from the bladder. Patient's creatinine was elevated at 3.92 and BUN was 64. His medical case was discussed with his court appointed mergers and acquisitions attorney who is in charge of his care, it was recommended to keep the patient comfortable but not to provide aggressive measures such as intubation, CPR, or central lines. She did agree with IV fluids and antibiotic administration. Patient was admitted to PCU, urine culture grew out Enterococcus, patient's antibiotics were continued and the patient's oxygen requirement worsened, echocardiogram was obtained which showed an ejection fraction of 30%-patient was treated for congestive heart failure with decreased ejection fraction, patient was also seen by cardiology for uncon trolled atrial fibrillation, rate limiting medications were started and the patient was placed on anticoagulation. Patient made slow progress in the hospital but was finally weaned to nasal cannula oxygen, attempts were made to remove his catheter but the patient went into urinary retention and it had to be replaced. Patient was seen by PT, OT, and speech therapy, arrangements were made for the patient to go to an extended care facility for ongoing care. On 05/18/2023, patient was seen and examined:alert and no apparent distress Constitutional Narrative: Patient is mute and deaf General Appearance: well kempt and well developed Orientation / Consciousness: awake HEENT normocephalic, head/scalp atraumatic and moist oral mucous membranes Eyes PERRL, EOMs intact bilaterally and conjunctivae normal Neck supple, no JVD, thyroid normal and no carotid bruits General: trachea midline Resp normal respiratory effort and no retractions Resp Narrative: Breath sounds are diminished bilaterally Auscultation: Negative for rales, rhonchi or wheezes Cardio S1 normal heart sound, S2 normal heart sound, no murmurs, no rub and no gallops Cardio Narrative: Heart rate and rhythm is irregular GI normal to inspection, nondistended, normoactive bowel sounds, soft to palpation, non-tender and non-distended Extremity no clubbing, cyanosis or edema Skin no rashes or lesions noted General Skin Exam: no breakdown Neuro CN's II-XII intact bilaterally, moves all extremities, no focal motor deficits and no sensory deficits noted Sensorium / Orientation: awake and alert Psych Psych Narrative: Patient appears calm On 05/18/2023, patient was seen and examined and felt to be in stable condition for transfer to an extended care facility for inpatient rehab services. Weight / BMI Weight Weight: 80.5 kg Body Mass Index (BMI) 26.9 ABG / Lab / Microbiology Data 05/11/23 05:35 05/17/23 05:50 Microbiology: Microbiology 05/06/23 20:50 Blood Culture (Wb) - Anticubital Right Blood Culture - Final No growth in 5 days. 05/06/23 20:50 Blood Culture (Wb) - Anticubital Left Blood Culture - Final No growth in 5 days. 05/11/23 14:10 Stool Stool Lactoferrin - Final 05/11/23 14:10 Stool Enteric Bacteriology - Final 05/11/23 14:10 Stool C. difficile DNA Amplification - Final 05/06/23 21:00 Urine, Catheterized Urine Culture - Final Enterococcus faecalis 05/07/23 08:00 Mucosa - Nasopharyngeal Respiratory Panel (PCR) - Final 05/07/23 00:55 Urine Catheter - Catheter Legionella Antigen - Final 05/07/23 00:55 Urine Catheter - Catheter Streptococcus pneumoniae Antigen (M - Final 05/06/23 20:55 Nasal Secretion SARS-CoV-2 & FLU Antigen (Rapid) - Final Meaningful Use Info Meaningful Use Diagnoses (Choose all that apply): CHF CHF SCOTT/ARB ordered at discharge?: Yes Documented LVEF (%): 30 Discharge Plan Admission Admit Date/Time: 05/07/23 00:32 Primary Reason for Your Visit: Congestive heart failure , respiratory failure Attending Provider: Mack Pereira Primary Care Provider: Brit Renee Consulting Providers: Carlton Pelayo; Jonatan Montero; Mirza España; Roel Weiner; Deshaun Rudolph; Humberto Mcgovern; Jono Holliday; Evelio Salcido; Claudia Reyes APPOINTMENT SPECIALIST Instructions Additional Instructions / Restrictions: Maintain Caldwell catheter for 1 week, at that time attempts should be made to discontinue it Discharge Orders/Prescriptions Prescriptions: New acetaminophen 325 mg Tablet 650 mg PO Q6H PRN PRN (Reason: Pain 1-10 Or Fever>100.7) Qty: 0 0RF amiodarone 200 mg Tablet 200 mg PO BID Qty: 0 0RF Rx Instructions: 1 twice a day x1 week, then 1 daily thereafter Eliquis 5 mg Tablet 2.5 mg PO BID Qty: 0 0RF furosemide 40 mg Tablet 40 mg PO BIDLX Qty: 0 0RF metoprolol tartrate 100 mg Tablet 100 mg PO BID Qty: 0 0RF spironolactone 25 mg Tablet 25 mg PO DAILY Qty: 0 0RF potassium chloride [Klor-Con M20] 20 mEq Tablet,Er Particles/Crystals 20 meq PO BIDCM Qty: 0 0RF tamsulosin 0.4 mg Capsule 0.8 mg PO DAILY@1730 Qty: 0 0RF lisinopril 2.5 mg Tablet 2.5 mg PO DAILY Qty: 0 0RF Ensure Plus High Protein 0.08 gram-1.5 kcal/mL Liquid 120 ml PO 4X/DAY Qty: 0 0RF Continued atorvastatin 20 mg tablet 20 mg PO DAILY cholecalciferol (vitamin D3) [Vitamin D3] 50 mcg (2,000 unit) capsule 2,000 unit PO DAILY Discontinued lisinopril 20 mg tablet 20 mg PO BID amlodipine 10 mg tablet 10 mg PO DAILY hydrochlorothiazide 12.5 mg capsule 12.5 mg PO DAILY atenolol 25 mg tablet 25 mg PO Q24H Referrals / Follow Up: Brit Renee MD [Primary Care Provider] - Disposition Disposition (needs filled in before D/C Order can be placed): Half-Way Facility Charges/Coding Visit Charges Inpatient E&M: 78091 Disch Hosp >30min
--- NOTE | 2023-05-18 16:29 | CASEMGMT ---
Discharge Planning Discharge orders, signed med list, [facility] will transport patient by cot at 6p. Nursing, SW, patients legal guardian, and his SSA all updated. Victoria Florian, Discharge Planning Asst.
--- NOTE | 2023-05-18 16:38 | CASEMGMT ---
Discharge Planning [facility] to transport patient to [facility] at 5p. [facility] and patients brother both updated. Victoria Florian, Discharge Planning Asst.
--- NOTE | 2023-05-18 17:01 | NURSING ---
[facility]
== END 2023-05-18 17:07 | disposition skilled nursing facility (03) | DRG 871 ==
LOC: ED 05-07 01:11 → PCU 05-07 01:46
PROVIDERS: Family Medicine; Admitting Provider Hospitalist; Emergency Provider Student in an Organized Health Care Education/Training Program; PCP Internal Medicine; Visit Provider Internal Medicine
DX: A41.81 Sepsis due to Enterococcus (principal); R65.21 Severe sepsis with septic shock; J96.01 Acute respiratory failure with hypoxia; I50.21 Acute systolic (congestive) heart failure; I21.A1 Myocardial infarction type 2; J18.9 Pneumonia, unspecified organism; I48.92 Unspecified atrial flutter; N17.9 Acute kidney failure, unspecified; N13.6 Pyonephrosis; I11.0 Hypertensive heart disease with heart failure; I48.91 Unspecified atrial fibrillation; I44.30 Unspecified atrioventricular block; K52.9 Noninfective gastroenteritis and colitis, unspecified; E78.5 Hyperlipidemia, unspecified; E87.6 Hypokalemia; Z66 Do not resuscitate; Z20.822 Contact with and (suspected) exposure to COVID-19; R41.89 Other symptoms and signs involving cognitive functions and awareness; Z28.21 Immunization not carried out because of patient refusal; H91.3 Deaf nonspeaking, not elsewhere classified; Z79.899 Other long term (current) drug therapy; N40.1 Benign prostatic hyperplasia with lower urinary tract symptoms; R33.8 Other retention of urine
CPT/HCPCS: 36415; 51702; 71045; 71250; 71275; 74176; 80048; 80053; 81001; 83605; 83630; 83735; 84484; 85025; 85610; 85730; 87040; 87077; 87086; 87088; 87186; 87329; 87428; 87449; 87493; 87506; 87633; 92610; 93005; 93306; 94002; 94640; 94660; 94762; 97110; 97163; 97165; 97530; 97535; 97802; 99285; J2020; J7030; J7050; Q9957; Q9967; A4216; J0295; J1940; J2405